=== PATIENT | female | born 1985 | race Asian ===

== ENCOUNTER 2023-07-12 11:30 | Outpatient (RCR) | payer BC, SELFPAY ==
--- NOTE | 2023-07-06 13:02 | ONC.NURNOTE ---
[employer] update per Radha; 07/06 9:30-11a Lavell Waggoner 07/10 - pending Wed 07/11 - Eileen Workman
--- NOTE | 2023-07-07 07:39 | URNOTE ---
Request received for authorization for Iron Sucrose (Venofer) ([id number]). Prior authorization is approved per [facility] Ref#[id number], date range: 07/05/2023 to 10/14/2023.
--- NOTE | 2023-07-07 07:45 | URNOTE ---
Request received for authorization for Iron Sucrose (Venofer) ([id number]). Prior authorization is not required per [facility] Ref#[id number], date range: 07/05/2023 to 10/14/2023.
--- NOTE | 2023-07-07 10:38 | ONC.NURNOTE ---
Addendum entered and electronically signed by Leyda Huynh, NADIA 07/07/23 15:05: Spoke with Veena RN Coordinator for [facility] at 3pm today to update regarding no-show this am. Veena shares with me that pt had conflicting appointment with her OB appointment today so missed her iron appointment. She will message pt regarding appointments for next week Monday and Monday, or to call can cancel appointments if she does not intend to receive IV iron. Original Note: No show for appointment today Ms. Unger was scheduled with legal billing coordinator for 1st of 3 IV venofer treatments for related iron deficiency anemia. Messages left with Ms. Unger and with her OB provider with request for update about next Monday and Monday appointments before her scheduled c section on 07/13/23.
--- NOTE | 2023-07-07 16:15 | ONC.NURNOTE ---
Porsha called from the clinic and said pt will be here 07/10 and 07/11 with an gluing machine offbearer for her iron infusion.
[2023-07-11 11:49] VITALS: BP 100/63; PULSE 82; RESP 18; TEMP 36.6; O2SAT 99
[2023-07-11] MEDS: IRON SUCROSE COMPLEX 200 MG in 0.9 % SODIUM CHLORIDE 100 ml 100 ML 220 MG IVPB (12:37)
[2023-07-11 13:11] VITALS: BP 95/60; PULSE 84; RESP 16; O2SAT 98
[2023-07-12 11:52] VITALS: BP 93/62; PULSE 93; RESP 16; TEMP 37.1; O2SAT 100
[2023-07-12] MEDS: IRON SUCROSE COMPLEX 200 MG in 0.9 % SODIUM CHLORIDE 100 ml 100 ML 220 MG IVPB (12:18)
[2023-07-12 13:03] VITALS: BP 91/56; PULSE 83; RESP 16; TEMP 36.8; O2SAT 99
== END 2024-01-07 23:59 | disposition home or self-care (01) ==
LOC: CCIC 11:30
PROVIDERS: Visit Provider Clinical Nurse Specialist
DX: O99.019 Anemia complicating pregnancy, unspecified trimester (principal); D50.9 Iron deficiency anemia, unspecified
CPT/HCPCS: 96365; 96374; J1756

== ENCOUNTER 2023-08-13 18:05 | Emergency (ER) | payer BC, SELFPAY ==
[2023-08-13 18:23] VITALS: BP 139/83; PULSE 59; RESP 18; TEMP 36.7; O2SAT 99
--- NOTE | 2023-08-13 18:32 | ED.GENADULT ---
HPI - General Adult General Time Seen by Provider: 18:32 Date Seen: 08/13/23 Chief complaint: Anxiety Stated complaint: anxiety Time Seen by Provider: 08/13/23 18:10 Source: patient, RN notes reviewed and old records reviewed Mode of arrival: ambulatory Limitations: no limitations History of Present Illness HPI narrative: 38-year-old female who is status post a little over a month ago who presents today with concerns of headache and high blood pressure. She says when she checks her blood pressure at home it is well over 185, she complains of a posterior headache as well. Recent dental work and says she is still having some pain in that site. By report she has been seen multiple times at outside emergency department for this concern, was prescribed medication for anxiety yesterday but has not started that. She does take propanolol and took that a couple hours prior to coming into the department. Denies lower extremity swelling, abdominal pain, nausea vomiting. Patient denies suicidal ideation. Online conference interpreter used Related Data Home Medications ?Medication ?Instructions ?Recorded ?Confirmed albuterol sulfate 90 mcg/actuation 2 puff inhalation Q4-6H PRN muscle 07/11/23 08/13/23 aerosol inhaler spasm ascorbic acid (vitamin C) 250 mg 250 mg PO Q1D 07/11/23 08/13/23 tablet famotidine 40 mg tablet 40 mg PO DAILY 07/11/23 08/13/23 cephalexin 500 mg capsule 500 mg PO 3XD 08/13/23 08/13/23 duloxetine 20 mg capsule,delayed 20 mg PO DAILY 08/13/23 08/13/23 release ferrous sulfate 325 mg (65 mg 325 mg PO DAILY 08/13/23 08/13/23 iron) tablet propranolol 10 mg tablet 10 mg PO DIRECTED 08/13/23 08/13/23 Allergies Allergy/AdvReac Type Severity Reaction Status Date / Time morphine AdvReac Mild Verified 08/13/23 18:56 peppermint AdvReac Mild Verified 08/13/23 18:56 aspirin AdvReac Verified 08/13/23 18:56 fluoxetine AdvReac Verified 08/13/23 18:56 ibuprofen AdvReac Verified 08/13/23 18:56 Exam Narrative: Exam Narrative: General: Well-developed and well-nourished, no acute distress Head: Atraumatic and normocephalic Eyes: Pupils are equal reactive, extraocular motions intact, conjunctiva clear ENT: External nose and ears are normal, posterior pharynx without erythema or exudate Neck: No midline cervical tenderness, full spontaneous range of motion the neck, trachea midline, no adenopathy Heart: Regular rate and rhythm no murmurs or thrills Lungs: Clear to auscultation bilaterally without wheezes or crackles Abdomen: Soft, nontender, nondistended with active bowel sounds Musculoskeletal: No tenderness, deformity, or edema Neurologic: Awake, alert, and oriented x3, no gross focal neurologic deficits, cranial nerves intact as tested Psych: Mood and affect are appropriate Skin: No rashes Const: Vital Signs, click to edit/add: Vital Signs - 24 hr 08/13/23 18:23 Temperature 98.0 F Pulse Rate [Left P ulse Oximeter] 59 L Respiratory Rate 18 Blood Pressure [Ri ght Upper Arm] 139/83 Pulse Oximetry 99 Oxygen Delivery Me thod Room Air Course Course ED Course: Patient seen and examined with conference interpreter. Complains of headache and is concerned about elevated blood pressure as well. She is a little about 4 weeks post . On exam here, well-appearing, no nuchal rigidity, no neurologic deficits. Given new onset headache with no prior history of this, CT scan of the head is ordered. Blood pressure is normal here, she reports it has been elevated at home, she did take propanolol just prior to coming in which may have lowered the blood pressure. Labs ordered to evaluate for preeclampsia although no other symptoms. Reevaluation(s) Time of Reevaluation #1: 18:47 Reevaluation #1: I reviewed patient's prior medical records, she was seen for this same problem last week in [place], also earlier today in [place] and left against medical advice. At that time labs were done which showed normal CBC with normal platelet count, normal hepatic panel, normal basic panel with no evidence for preeclampsia or HELLP syndrome. Review of prior records also shows patient has a history of anxiety which certainly is compounding symptoms today. Time of Reevaluation #2: 19:18 Reevaluation #2: CT scan of the head independently interpreted by me negative for acute findings, radiology interpretation agrees. Time of Reevaluation #3: 19:45 Reevaluation #3: Long discussion with patient's spouse regarding findings and plan today. She is still quite anxious, feels like there is something wrong in her head. We discussed that she has a normal neurologic exam, normal head CT. Consider outpatient MRI but no indication for emergent MRI at this time. Blood pressure remains slightly elevated but generally stable and would not start antihypertensives at this time with no evidence for preeclampsia or HELLP syndrome. Patient should follow-up with her primary care provider to discuss antihypertensive medications. Stable for discharge at this time Vital Signs Vital signs: Initial Vital Signs Temperature 98.0 F 08/13/23 18:23 Temperature Source Temporal Artery Scan 08/13/23 18:23 Pulse Rate 59 L 08/13/23 18:23 Pulse Rhythm Regular 08/13/23 18:23 Pulse Strength 3+ Normal 08/13/23 18:23 Respiratory Rate 18 08/13/23 18:23 Blood Pressure 139/83 08/13/23 18:23 Blood Pressure Mean 101 08/13/23 18:23 Blood Pressure Position Sitting 08/13/23 18:23 Pulse Oximetry 99 08/13/23 18:23 Oxygen Delivery Method Room Air 08/13/23 18:23 Vital Signs Temperature 98.0 F 08/13/23 18:23 Pulse Rate 59 L 08/13/23 18:23 Respiratory Rate 18 08/13/23 18:23 Blood Pressure 139/83 08/13/23 18:23 Pulse Oximetry 99 08/13/23 18:23 Oxygen Delivery Method Room Air 08/13/23 18:23 Temperature 98.0 F 08/13/23 18:23 Pulse Rate 59 L 08/13/23 18:23 Respiratory Rate 18 08/13/23 18:23 Blood Pressure 139/83 08/13/23 18:23 Pulse Oximetry 99 08/13/23 18:23 Oxygen Delivery Method Room Air 08/13/23 18:23 Medications Administered Medications: Discontinued Medications Generic Name Dose Route Start Last Admin Trade Name Freq PRN Reason Stop Dose Admin Acetaminophen 1,000 mg 08/13/23 18:35 08/13/23 18:48 Acetaminophen 500 Mg Tablet PO 08/13/23 18:36 500 mg ONCE ONE Administration Discharge Plan Discharge Clinical Impression: Anxiety, generalized, S/P section, Headache Patient Disposition: Home, Self-Care Condition: Stable Instructions: Generalized Anxiety Disorder (ED), Acute Headache (DC) Additional Instructions: Continue your medications as prescribed Follow-up with your primary care provider and OB Activity Level: No Restrictions Discharge Diet: Regular Prescriptions: No Action famotidine 40 mg tablet 40 mg PO DAILY ascorbic acid (vitamin C) 250 mg tablet 250 mg PO Q1D albuterol sulfate 90 mcg/actuation HFA aerosol inhaler 2 puff inhalation Q4-6H PRN (Reason: muscle spasm) cephalexin 500 mg capsule 500 mg PO 3XD duloxetine 20 mg capsule,delayed release(DR/EC) 20 mg PO DAILY propranolol 10 mg tablet 10 mg PO DIRECTED ferrous sulfate 325 mg (65 mg iron) tablet 325 mg PO DAILY Follow Up/Referrals: Provider,Not a Local [Primary Care Provider] - Stand Alone Forms: [employer] Info Instructions
--- NOTE | 2023-08-13 18:35 | CRLHL7_ITS ---
For Patients: As a result of the Century Cures Act, medical imaging exams and procedure reports are released immediately into your electronic medical record. You may view this report before your referring provider. If you have questions, please contact your health care provider. INDICATION: Headaches. TECHNIQUE: CT of the head without contrast. Coronal and sagittal reformats are included. COMPARISON: None. FINDINGS: No CT evidence of acute cortical infarct. No loss of murray white matter differentiation. No hyperdense vessels to suggest intracranial thrombus. No acute intracranial hemorrhage. No mass effect or midline shift. No hydrocephalus or extra-axial collections. White matter is within normal limits for age. No acute osseous abnormalities. Mastoid air cells and paranasal sinuses are clear. Normal soft tissues. IMPRESSION: IMPRESSION:1. No CT evidence of acute cortical infarct. No acute intracranial hemorrhage. No other acute intracranial findings. Please note that all CT scans at this facility use dose modulation, iterative reconstruction, and/or weight-based dosing when appropriate to reduce radiation dose to as low as reasonably achievable. Dictated by Alden Sloan MD @ 08/13/2023 7:14:47 PM (Electronically Signed)
[2023-08-13] MEDS: ACETAMINOPHEN 500 MG TABLET 1000 MG PO (18:48)
[2023-08-13 19:46] VITALS: BP 139/88
[2023-08-13 19:46] LABS: Total Protein Urine Random* 12 mg/dL
== END 2023-08-13 20:04 | disposition home or self-care (01) ==
PROVIDERS: Emergency Provider Family Medicine
DX: F41.1 Generalized anxiety disorder (principal); R51.9 Headache, unspecified
CPT/HCPCS: 70450; 80048; 80076; 83735; 84156; 84443; 85025; 99284; A9270

== ENCOUNTER 2023-08-18 00:19 | Emergency (ER) | payer BC, SELFPAY ==
[2023-08-18 00:20] VITALS: BP 150/85; PULSE 67; RESP 20; TEMP 36.8; O2SAT 99
--- NOTE | 2023-08-18 01:14 | ED.GENADULT ---
HPI - General Adult General Date Seen: 08/18/23 Chief complaint: Hypertension Stated complaint: High Blood Pressure Time Seen by Provider: 08/18/23 00:51 Source: patient and family Mode of arrival: ambulatory Limitations: language barrier History of Present Illness HPI narrative: Patient is a 38-year-old female who comes in during the night with her and sleeping child with concerns about her blood pressure. She is worried that her blood pressure is high in that she is going to have a stroke. She shows me pictures on her phone of thing she has come up with in a Google search of hypertension. She has numerous questions regarding foods. She tells me that if she eats any salt or eats a banana that her blood pressure is [place]. She has a family history of high blood pressure. She was just at her doctor a week ago and says the did not discuss her blood pressure. She has an anxiety disorder and has been to the ER on numerous occasions. She carries bottles of propranolol and lorazepam with her and is taking them regularly. She is not on a maintenance medication for anxiety. She is requesting a prescription for losartan because that is what her grandmother takes for hypertension. We had a long discussion regarding where her chronic health problems need to be managed and coming to the ER requesting management of her blood pressure or anxiety is not appropriate. She has no exertional chest pains or shortness of breath. Her blood pressure is mildly elevated today on the order of 150 systolic initially. Related Data Home Medications ?Medication ?Instructions ?Recorded ?Confirmed albuterol sulfate 90 mcg/actuation 2 puff inhalation Q4-6H PRN muscle 07/11/23 08/18/23 aerosol inhaler spasm ascorbic acid (vitamin C) 250 mg 250 mg PO Q1D 07/11/23 08/18/23 tablet famotidine 40 mg tablet 40 mg PO DAILY 07/11/23 08/18/23 duloxetine 20 mg capsule,delayed 20 mg PO DAILY 08/13/23 08/18/23 release ferrous sulfate 325 mg (65 mg 325 mg PO DAILY 08/13/23 08/18/23 iron) tablet propranolol 10 mg tablet 10 mg PO DIRECTED 08/13/23 08/18/23 Previous Rx's ?Medication ?Instructions ?Recorded propranolol 10 mg tablet 10 mg PO TID PRN panic attack(s) 08/18/23 #30 tabs Allergies Allergy/AdvReac Type Severity Reaction Status Date / Time morphine AdvReac Mild Verified 08/18/23 01:00 peppermint AdvReac Mild Verified 08/18/23 01:00 aspirin AdvReac Verified 08/18/23 01:00 fluoxetine AdvReac Verified 08/18/23 01:00 ibuprofen AdvReac Verified 08/18/23 01:00 Review of Systems Narrative: Review of systems is outlined above otherwise noted to be negative. [facility] Medical History (Updated 08/18/23 @ 01:16 by Solomon Parikh RN) Anxiety ?F41.9 - Anxiety disorder, unspecified (ICD-10) Social History Smoking Status: Never smoker Second hand tobacco smoke exposure: No How often do you have a drink containing alcohol: never AUDIT-C Alcohol total score: 0 Non-prescribed substance use: denies use Exam Narrative: Exam Narrative: Vitals noted. She is extremely anxious. educational interpreter is used. HEENT: Conjunctiva clear. Neck is supple without adenopathy, thyromegaly, carotid bruit. Lungs: Clear to auscultation in all bradley. No wheezes, rales, rhonchi. Heart: Regular rate and rhythm without murmur. Abdomen: Soft and nontender. No guarding, rigidity, rebound. Bowel sounds are normal. No palpable masses. Extremities: No cyanosis or edema. Good distal pulses. Skin: No abnormalities noted of the exposed skin. Neurologic: Awake, alert, fully oriented. Neurologic exam is nonfocal. Const: Vital Signs, click to edit/add: Vital Signs - 24 hr 08/18/23 00:20 08/18/23 01:17 08/18/23 01:22 Temperature 98.2 F 98.2 F 98.2 F Pulse Rate [Right Pulse Oximeter] 67 64 64 Respiratory Rate 20 20 20 Blood Pressure [Ri ght Upper Arm] 150/85 H 145/78 H 145/78 H Pulse Oximetry 99 99 Oxygen Delivery Me thod Room Air Room Air Course Course ED Course: Patient is seen and examined. Her she very clearly is mainly anxiety related. She has a family history of hypertension and may very well have some mild hypertension. I focused our discussion on switching care the primary physician through the clinic to answer her dietary questions, lipid questions, blood pressure questions and to initiate treatment if necessary. I have reassured her that her minimally elevated blood pressure does not warrant any emergency workup or treatment. Her anxiety is also poorly managed with propranolol and lorazepam when it should be managed with a daily medication such as an SSRI. Again this is not something that we should be treating through the emergency department. She seems satisfied with this plan. Vital Signs Vital signs: Initial Vital Signs Temperature 98.2 F 08/18/23 00:20 Temperature Source Temporal Artery Scan 08/18/23 00:20 Pulse Rate 67 08/18/23 00:20 Respiratory Rate 20 08/18/23 00:20 Blood Pressure 150/85 H 08/18/23 00:20 Blood Pressure Mean 106 H 08/18/23 00:20 Pulse Oximetry 99 08/18/23 00:20 Oxygen Delivery Method Room Air 08/18/23 00:20 Vital Signs Temperature 98.2 F 08/18/23 00:20 Pulse Rate 67 08/18/23 00:20 Respiratory Rate 20 08/18/23 00:20 Blood Pressure 150/85 H 08/18/23 00:20 Pulse Oximetry 99 08/18/23 00:20 Oxygen Delivery Method Room Air 08/18/23 00:20 Temperature 98.2 F 08/18/23 01:22 Pulse Rate 64 08/18/23 01:22 Respiratory Rate 20 08/18/23 01:22 Blood Pressure 145/78 H 08/18/23 01:22 Pulse Oximetry 99 08/18/23 01:17 Oxygen Delivery Method Room Air 08/18/23 01:17 Discharge Plan Discharge Clinical Impression: Generalized anxiety disorder, Elevated blood pressure reading Patient Disposition: Home w/ Parent or Adult Condition: Stable Additional Instructions: You have anxiety and mildly elevated blood pressure. Both of these conditions need to be managed by your clinic doctor not in the emergency department. I will provide a refill of your propranolol to get by until you see your clinic doctor. Further refills need to be managed by your Clinic doctor. You can discuss cholesterol and diet changes with her. You should avoid salt and stay hydrated. Your minimally elevated blood pressure does not impose an immediate risk. You should consider a daily anxiety medication such as Lexapro to better manage your anxiety. Lorazepam and propranolol are intended to be used as needed for panic attacks, not daily. Prescriptions: New propranolol 10 mg tablet 10 mg PO TID PRN (Reason: panic attack(s)) Qty: 30 0RF No Action famotidine 40 mg tablet 40 mg PO DAILY ascorbic acid (vitamin C) 250 mg tablet 250 mg PO Q1D albuterol sulfate 90 mcg/actuation HFA aerosol inhaler 2 puff inhalation Q4-6H PRN (Reason: muscle spasm) duloxetine 20 mg capsule,delayed release(DR/EC) 20 mg PO DAILY propranolol 10 mg tablet 10 mg PO DIRECTED ferrous sulfate 325 mg (65 mg iron) tablet 325 mg PO DAILY Follow Up/Referrals: Provider,Not a Local [Primary Care Provider] - Stand Alone Forms: [facility] Info Instructions
[2023-08-18 01:17] VITALS: BP 145/78; PULSE 64; RESP 20; TEMP 36.8; O2SAT 99
[2023-08-18 01:22] VITALS: BP 145/78; PULSE 64; RESP 20; TEMP 36.8
== END 2023-08-18 01:22 | disposition home or self-care (01) ==
PROVIDERS: Emergency Provider Family Medicine
DX: F41.9 Anxiety disorder, unspecified (principal); N39.0 Urinary tract infection, site not specified; I10 Essential (primary) hypertension
CPT/HCPCS: 99281; 99284

== ENCOUNTER 2023-08-21 | Emergency (ER) | payer BC, SELFPAY ==
[2023-08-21 00:09] VITALS: BP 147/89; PULSE 60; RESP 16; TEMP 36.6; O2SAT 100
[2023-08-21 00:17] LABS: Appearance Urine Clear (Clear); Bilirubin Urine Negative (Negative); Blood Urine Negative (Negative); Color Urine Yellow (Yellow); Glucose Urine Negative (Negative); Ketones Urine Negative (Negative); Leukocyte Esterase Urine 2+ (Negative); Nitrite Urine Positive (Negative); Protein Urine Negative (Negative); Urobilinogen Urine 0.2 (0.2-1.0); pH Urine 6.5 (5.0-8.5)
[2023-08-21 00:26] LABS: Amorphous Sediment Urine Few; Bacteria Urine Few; RBC Urine 0-2 (0-2); Squamous Epithelial Cell Urine Few (None-Few)
--- NOTE | 2023-08-21 00:42 | ED_ITS ---
HPI - General Adult General Date Seen: 08/21/23 Chief complaint: Hypertension Stated complaint: high blood pressure Time Seen by Provider: 08/21/23 00:21 Source: patient, family and vice president mission integration Mode of arrival: ambulatory Limitations: no limitations History of Present Illness HPI narrative: Jerica is a 38-year-old female with history of hearing impairment, elevated blood pressure, anxiety who comes to the emergency room for evaluation of multiple complaints. First, patient notes that she has anxiety and that she has been using Ativan. She states that she takes a tablet daily. She does not have any more Ativan. She notes that she did take a dose of propranolol 10 mg prior to coming into the emergency room approximately 1 hour ago. She states that she is also out of propranolol. This complaint is intertwined with issues regarding elevated blood pressure. She states that she has a family history of elevated blood pressure and that her grandmother used a medication called losartan. She is requesting that medication tonight. She notes that she cannot eat salty or sweet foods as this increases her blood pressure. She notes that prior to coming in her blood pressure was fluctuating above 150. Finally, as she notes that she also has some pain with urination starting 3 days ago. She describes urine smelling foul as well. She states that she took an amoxicillin tablet that she had left over from a previous visit approximately 1 hour ago. She states however the amoxicillin is making her feel sick. No fever or chills. She is not exhibiting any shortness of breath. She has no unusual edema. Her is here taking care of their . She has an older son elementary school age she was sleeping in a chair. She sees Dr. Hdez at the [facility]. We are assisted with the ssn/ssbn assistant navigator. It is somewhat challenging as Jerica also is writing down a lot of her history either on my paperwork or in her phone and sometimes does not look at the vice president mission integration after I have spoken. She has an appointment at the [facility] on MondayAugust 22. She is not nursing. Related Data Home Medications ?Medication ?Instructions ?Recorded ?Confirmed albuterol sulfate 90 mcg/actuation 2 puff inhalation Q4-6H PRN muscle 07/11/23 08/18/23 aerosol inhaler spasm ascorbic acid (vitamin C) 250 mg 250 mg PO Q1D 07/11/23 08/18/23 tablet famotidine 40 mg tablet 40 mg PO DAILY 07/11/23 08/18/23 duloxetine 20 mg capsule,delayed 20 mg PO DAILY 08/13/23 08/18/23 release ferrous sulfate 325 mg (65 mg 325 mg PO DAILY 08/13/23 08/18/23 iron) tablet propranolol 10 mg tablet 10 mg PO DIRECTED 08/13/23 08/18/23 Previous Rx's ?Medication ?Instructions ?Recorded propranolol 10 mg tablet 10 mg PO TID PRN panic attack(s) 08/18/23 #30 tabs Allergies Allergy/AdvReac Type Severity Reaction Status Date / Time morphine AdvReac Mild Verified 08/18/23 01:00 peppermint AdvReac Mild Verified 08/18/23 01:00 aspirin AdvReac Verified 08/18/23 01:00 fluoxetine AdvReac Verified 08/18/23 01:00 ibuprofen AdvReac Verified 08/18/23 01:00 Review of Systems Const: Denies: fever PFSH PFS Medical History Anxiety ?F41.9 - Anxiety disorder, unspecified (ICD-10) Social History Smoking Status: Never smoker Second hand tobacco smoke exposure: No How often do you have a drink containing alcohol: never AUDIT-C Alcohol total score: 0 Non-prescribed substance use: denies use Exam Narrative: Exam Narrative: Jerica is alert and oriented. EOM is full. Pupils are equal and reactive. Head is atraumatic. Moving neck without difficulty. No evidence of guarded movement. Face symmetrical. Heart with a bradycardic rate but normal rhythm. Lungs are clear bilaterally. Moving all extremities. No evidence of lower extremity edema. Const: Vital Signs, click to edit/add: Vital Signs - 24 hr 08/21/23 00:09 08/21/23 00:45 08/21/23 01:42 Temperature 97.9 F Pulse Rate [Left P ulse Oximeter] 60 Respiratory Rate 16 Blood Pressure [Ri ght Upper Arm] 147/89 H 167/89 H 148/78 H Pulse Oximetry 100 Oxygen Delivery Me thod Room Air Documenting provider has reviewed patient's vital signs: yes Course Course ED Course: At this time Jerica appears to have had 3 visit visits for similar complaints at the [facility] in the last 8 days. There also appears to be visits to the hospital and clinic in [place].. We are able to access [facility] chart and she has requested Ativan and propranolol as refills.. She initial received 10 tablets of Ativan from our hospital on 08/12 and therefore still should have some tablets left over if she is only taking 1 a day as she told me. I think she would benefit much more from a long-acting antidepressant. She had previously been told that we will no longer refill her medicines and I will not be doing that tonight. She appears somewhat frustrated with that. We jumps from topic to topic and therefore it is very challenging to address anyone complaint at 1 time. I do request subsequent blood pressures and a manual is 148/78. Patient does not know her dose of propranolol. I will check urinalysis as well as dosing of propranolol. Patient asked that I is make her an appointment tomorrow morning at the [facility]. I did state that I could not do that as we are not [facility] system but that I would contact her clinic in the morning and speak to someone to have them reach out to her. Reevaluation(s) Reevaluation #1: I do discuss with patient that she has a mild UTI. There is no evidence of fever. I do recommend treatment with antibiotics and suggest Macrobid but she states that she cannot take that. It is not listed on her allergies but it appears she would rather take 1 of the antibiotics she has with her from previous needs. She does consult with her . She shows me that she has both amoxicillin and cephalexin left over from previous medical encounters. She does not want to take amoxicillin but she does have 16 tablets of cephalexin left over. She is able to take this. Therefore I do suggest 1 tablet 3 times a day for 5 days. She asks that I write this in her discharge instructions. Reevaluation #2: Patient currently taking 10 mg of propranolol. She states that this was her last dose that she took tonight. Heart rate is 51 on an EKG that is otherwise reassuring. I cannot give her a 2nd dose of propranolol at this time. Vital Signs Vital signs: Initial Vital Signs Temperature 97.9 F 08/21/23 00:09 Temperature Source Temporal Artery Scan 08/21/23 00:09 Pulse Rate 60 08/21/23 00:09 Pulse Rhythm Regular 08/21/23 00:09 Respiratory Rate 16 08/21/23 00:09 Blood Pressure 147/89 H 08/21/23 00:09 Blood Pressure Mean 108 H 08/21/23 00:09 Blood Pressure Position Sitting 08/21/23 00:09 Pulse Oximetry 100 08/21/23 00:09 Oxygen Delivery Method Room Air 08/21/23 00:09 Vital Signs Temperature 97.9 F 08/21/23 00:09 Pulse Rate 60 08/21/23 00:09 Respiratory Rate 16 08/21/23 00:09 Blood Pressure 147/89 H 08/21/23 00:09 Pulse Oximetry 100 08/21/23 00:09 Oxygen Delivery Method Room Air 08/21/23 00:09 Temperature 97.9 F 08/21/23 00:09 Pulse Rate 60 08/21/23 00:09 Respiratory Rate 16 08/21/23 00:09 Blood Pressure 148/78 H 08/21/23 01:42 Pulse Oximetry 100 08/21/23 00:09 Oxygen Delivery Method Room Air 08/21/23 00:09 Medications Administered Medications: Discontinued Medications Generic Name Dose Route Start Last Admin Trade Name Freq PRN Reason Stop Dose Admin Lorazepam 0.5 mg 08/21/23 01:30 08/21/23 01:41 Lorazepam 0.5 Mg Tablet PO 08/21/23 01:31 0.5 mg ONCE ONE Administration Medical Decision Making MDM Narrative Medical decision making narrative: 1. UTI-at this time we have had multiple episodes of discussion regarding the use of cephalexin as her antibiotic to treat the UTI. Would recommend 1 tablet 3 times daily for 5 days. We will await the urine culture and contact her for change of medication in the event that she has a resistant organism. Updated: I have spoken with [facility] and have requested that they check the urine culture from mid July. We do have a culture pending from last night's urine as well. 2. Anxiety-I am greatly concerned regarding Jerica's use of Ativan. This is supposed to be used as a rescue medication but she is using this on a greater than daily basis.. Unfortunately I could not give her additional dose of propranolol tonight and therefore have sent her home with 1 tablet of 0.5 mg Ativan for tonight. However, I have made it clear that we will no longer give her Ativan out of the emergency room for this particular issue. I will speak to her physician tomorrow regarding my concerns. Update: Have addressed this with Cyndee, the nurse with Dr. Hdez's care team in [place]. She may need more support with a . 3. Hypertension-likely secondary to 2. But patient does have family history of elevated blood pressure. Patient had taken propranolol prior to arrival and blood pressure after she has been sitting here for while is 148/78. She had requested losartan but I do not feel that that is an appropriate medication to be started in the emergency room. On 08/12 she was evaluated with head CT here in the [facility] which was reassuring. Blood work had been done earlier that day at the [facility] and she had also been seen at a different location in which she left [place]. I did do an EKG tonight which is reassuring with sinus bradycardia and no acute ST or T-wave changes. Given the fact that she is well-appearing with full range of motion of her neck and no cognitive impairment I do not feel the need to repeat CT or to repeat blood work. However, I would like patient to be considered for long-acting antihypertensive. She states that she has also used her last propranolol tonight and I do suggest all refills with her primary MD. 4. Disposition-home at this time. Return to the emergency room for fever, chills, worsening symptoms and as needed. Patient is very challenging in both history taking and communication. Barriers include need for ssn/ssbn assistant navigator, patient's tendency to use texting and writing her concerns down as well as sometimes not looking at the vice president mission integration. Patient jumped from subject to subject, especially when I declined the use of lorazepam in this particular instance. When I was firm with declining the use of lorazepam she then stated that her neck hurt although she is showing me that she is moving her neck without any difficulty. She then stated that she was very anxious. I have also great concerns regarding the fact that she has leftover antibiotics. Clearly there is some tendency to not follow medical advice. Therefore, I feel strongly that Jerica needs to be followed by her primary MD in the matters of anxiety, hypertension and chronic medical problems. I feel that too many physicians or opinions with various medications would not be to Jerica's benefit. Update: I had the pleasure of speaking to Cyndee, nurse member of primary physicians care team at the [facility] in [place]. Expressed concerns regarding use of Ativan, high blood pressure and UTI. Plan is to have them reach out to Jerica today. Medical Records Medical records reviewed: Yes I reviewed the patient's medical records Lab Data Lab results reviewed: Yes I reviewed the patient's lab results Labs: Lab Results 08/21/23 Range/Units 00:05 Urine Color Yellow (Yellow) Urine Appearance Clear (Clear) Urine pH 6.5 (5.0-8.5) Ur Specific Snyder 1.010 (1.000-1.030) Urine Protein Negative (Negative) Urine Glucose (UA) Negative (Negative) Urine Ketones Negative (Negative) Urine Blood Negative (Negative) Urine Nitrite Positive A (Negative) Urine Bilirubin Negative (Negative) Urine Urobilinogen 0.2 (0.2-1.0) Ur Leukocyte Esterase 2+ A (Negative) Urine RBC 0-2 (0-2) Urine WBC 5-10 A (0-5) Ur Squamous Epith Cells Few (None-Few) Amorphous Sediment Few A (None) Urine Bacteria Few A (None) ECG Data Attestation: I personally reviewed and interpreted this ECG as follows: Interpretation: EKG by my read shows sinus bradycardia at a rate of 51. No acute ST or T-wave changes. DC and QT intervals within normal limits. Discharge Plan Discharge Clinical Impression: Anxiety, generalized, Elevated blood pressure reading UTI (urinary tract infection) Qualifiers: Urinary tract infection type: site unspecified Hematuria presence: without hematuria Qualified Code(s): N39.0 - Urinary tract infection, site not specified Patient Disposition: Home, Self-Care Condition: Unchanged Additional Instructions: 1. It looks like you may have a mild UTI. You may use cephalexin that you have already in the bottle. You should take 1 tablet 3 times a day for 5 days. Do not take the amoxicillin. We will await the urine culture and should you need a different antibiotic we will call you. 2. Anxiety-you are trying to manage your anxiety with Ativan. You will receive 1 tablet of Ativan that you may take when you go home. We will no longer give you Ativan in the emergency room as a refill. You must go through your regular doctor for management of your anxiety. I do not think that your anxiety is being managed well with Ativan. I will speak to your doctor or doctor's nurse in the morning with my concerns. 3. Hypertension-you expressed concern regarding family history of hypertension. Your blood pressure tonight is not dangerous but over a period of time can cause medical problems. Therefore, I urge you to talk to your doctor about getting started on a long-term medication for blood pressure management. You can also have your doctor refill your propanolol tomorrow. 4. Follow-up-I will attempt to contact the [facility] and have them call you for an earlier appointment than Monday or at the very least have them discuss with you management of your problems. Return to the emergency room for fever, vomiting, worsening symptoms. Prescriptions: No Action famotidine 40 mg tablet 40 mg PO DAILY ascorbic acid (vitamin C) 250 mg tablet 250 mg PO Q1D albuterol sulfate 90 mcg/actuation HFA aerosol inhaler 2 puff inhalation Q4-6H PRN (Reason: muscle spasm) duloxetine 20 mg capsule,delayed release(DR/EC) 20 mg PO DAILY propranolol 10 mg tablet 10 mg PO DIRECTED ferrous sulfate 325 mg (65 mg iron) tablet 325 mg PO DAILY propranolol 10 mg tablet 10 mg PO TID PRN (Reason: panic attack(s)) Qty: 30 0RF Follow Up/Referrals: Provider,Not a Local [Primary Care Provider] - Stand Alone Forms: [employer] Info Instructions
[2023-08-21 00:45] VITALS: BP 167/89
[2023-08-21] MEDS: LORazepam 0.5 MG TABLET PO (01:41)
[2023-08-21 01:42] VITALS: BP 148/78
--- NOTE | 2023-08-21 02:12 | ED.NURSE ---
PT DC with understanding of medication and dosage. No other questions upon discharge.
== END 2023-08-21 02:15 | disposition home or self-care (01) ==
LOC: ED 02:02
PROVIDERS: Emergency Provider Family Medicine
DX: F41.9 Anxiety disorder, unspecified (principal); I10 Essential (primary) hypertension; N39.0 Urinary tract infection, site not specified
CPT/HCPCS: 81001; 87086; 99284; A9270

== ENCOUNTER 2023-08-31 00:42 | Emergency (ER) | payer BC, SELFPAY ==
--- NOTE | 2023-08-31 00:44 | ED_ITS ---
HPI - General Adult General Time Seen by Provider: 00:44 Date Seen: 08/31/23 Chief complaint: Anxiety Stated complaint: acid reflux, anxiety Time Seen by Provider: 08/31/23 00:44 Source: patient, RN notes reviewed and old records reviewed Mode of arrival: EMS Limitations: no limitations History of Present Illness HPI narrative: 38-year-old female who comes in today with concern for hypertension, anxiety and heartburn symptoms. Patient is concerned sore blood pressure is been going up and down, this makes her anxious. She also notes increased heartburn symptoms and belching depressed well as left upper quadrant pain. Patient has had recent evaluation for this including CT scan on labs. She reports she was started on omeprazole for for this, she has taken one dose and ?it is not working. ? Says Tums and Gas-X 10 help. She says that her body is ?very sensitive medications? and also due to salt, she started a low-salt diet and is worried that she is ge tting more salt than she should. She notes that her food done tolerance as and hypertension as well as increased anxiety seem to have started after she delivered her most recent child. She says she is not resting well, denies suicide or homicidal ideation. She does not feel that she is in danger of hurting her baby. Related Data Home Medications ?Medication ?Instructions ?Recorded ?Confirmed albuterol sulfate 90 mcg/actuation 2 puff inhalation Q4-6H PRN muscle 07/11/23 08/18/23 aerosol inhaler spasm ascorbic acid (vitamin C) 250 mg 250 mg PO Q1D 07/11/23 08/18/23 tablet famotidine 40 mg tablet 40 mg PO DAILY 07/11/23 08/18/23 ferrous sulfate 325 mg (65 mg 325 mg PO DAILY 08/13/23 08/18/23 iron) tablet propranolol 10 mg tablet 10 mg PO DIRECTED 08/13/23 08/18/23 Previous Rx's ?Medication ?Instructions ?Recorded propranolol 10 mg tablet 10 mg PO TID PRN panic attack(s) 08/18/23 #30 tabs sucralfate 1 gram tablet (Carafate) 1 g PO QID #28 tabs 08/31/23 Allergies Allergy/AdvReac Type Severity Reaction Status Date / Time morphine AdvReac Mild Verified 08/18/23 01:00 peppermint AdvReac Mild Verified 08/18/23 01:00 aspirin AdvReac Verified 08/18/23 01:00 fluoxetine AdvReac Verified 08/18/23 01:00 ibuprofen AdvReac Verified 08/18/23 01:00 [facility] Medical History Anxiety ?F41.9 - Anxiety disorder, unspecified (ICD-10) Social History Smoking Status: Never smoker Second hand tobacco smoke exposure: No How often do you have a drink containing alcohol: never AUDIT-C Alcohol total score: 0 Non-prescribed substance use: denies use Exam Narrative: Exam Narrative: General: Well-developed and well-nourished, no acute distress Head: Atraumatic and normocephalic Eyes: Pupils are equal reactive, extraocular motions intact, conjunctiva clear ENT: External nose and ears are normal, posterior pharynx without erythema or exudate Neck: No midline cervical tenderness, full spontaneous range of motion the neck, trachea midline, no adenopathy Heart: Regular rate and rhythm no murmurs or thrills Lungs: Clear to auscultation bilaterally without wheezes or crackles Abdomen: Soft, nontender, nondistended with active bowel sounds Musculoskeletal: No tenderness, deformity, or edema Neurologic: Awake, alert, and oriented x3, no gross focal neurologic deficits, cranial nerves intact as tested Psych: Mood and affect are appropriate Skin: No rashes Const: Vital Signs, click to edit/add: Vital Signs - 24 hr 08/31/23 00:56 Temperature 97.5 F L Pulse Rate [Pulse Oximeter] 58 L Respiratory Rate 16 Blood Pressure [Le ft Upper Arm] 127/72 Pulse Oximetry 97 Oxygen Delivery Me thod Room Air Course Course ED Course: Patient seen and examined, reviewed multiple recent emergency department visits, today is her 4th visit to this emergency depart in 3 weeks with various somatic complaints with no underlying pathology found. Review of outside records shows she has also had visits to the emergency department in [place] as well as [place]. She most recent was in [place] on August 24 with left upper quadrant abdominal pain and had a CT scan done that was negative. Additionally she had a upper abdominal ultrasound yesterday which was negative. She was started on omeprazole by her primary care doctor and also has an appointment to follow-up with psychiatry. On exam, blood pressure is reassuring, minimal left upper quadrant tenderness. We discussed that her blood pressure will go up and down related to her anxiety and pain levels. I encouraged her not to check her blood pressure at home has this tends to make her anxiety worse. Her abdominal pain bloating are likely secondary to dyspepsia and could be related to her anxiety as well. Acute coronary syndrome unlikely, given recent was full evaluation for this pain within the last 7 days with no acute abnormalities found, as well as minimal tenderness on exam and rigidity or severe tenderness to suggest perforated ulcer or other emergent life-threatening abdominal condition, will treat symptomatically with GI cocktail, Pepcid, Gas-X. Patient's symptoms are most likely related to exacerbation of underlying anxiety disorder in the state, no evidence for psychosis, patient is not suicidal homicidal. She has a follow-up appointment with Psychiatry later today. Sym ptomatic treatment, will be started on Carafate as well. We did discuss that the omeprazole can take a week to start having significant effects and she can continue Gas-X in the meantime Reevaluation(s) Time of Reevaluation #1: 01:57 Reevaluation #1: Patient declined Gas-X and Maalox although she has been taking Gas-X at home. Time of Reevaluation #2: 02:06 Reevaluation #2: Patient declines further medications, spouse and patient are requesting discharge. Patient is medically stable for discharge, should follow-up with psychiatry as scheduled today. Vital Signs Vital signs: Initial Vital Signs Temperature 97.5 F L 08/31/23 00:56 Temperature Source Temporal Artery Scan 08/31/23 00:56 Pulse Rate 58 L 08/31/23 00:56 Respiratory Rate 16 08/31/23 00:56 Blood Pressure 127/72 08/31/23 00:56 Blood Pressure Mean 90 08/31/23 00:56 Blood Pressure Position Sitting 08/31/23 00:56 Pulse Oximetry 97 08/31/23 00:56 Oxygen Delivery Method Room Air 08/31/23 00:56 Vital Signs Temperature 97.5 F L 08/31/23 00:56 Pulse Rate 58 L 08/31/23 00:56 Respiratory Rate 16 08/31/23 00:56 Blood Pressure 127/72 07/18/24 00:56 Pulse Oximetry 97 08/31/23 00:56 Oxygen Delivery Method Room Air 08/31/23 00:56 Temperature 97.5 F L 08/31/23 00:56 Pulse Rate 58 L 08/31/23 00:56 Respiratory Rate 16 08/31/23 00:56 Blood Pressure 127/72 08/31/23 00:56 Pulse Oximetry 97 08/31/23 00:56 Oxygen Delivery Method Room Air 08/31/23 00:56 Medications Administered Medications: Generic Name Dose Route Start Last Admin Trade Name Freq PRN Reason Stop Dose Admin Famotidine 20 mg 08/31/23 01:08 08/31/23 01:43 Famotidine 20 Mg Tablet PO 08/31/23 01:09 20 mg ONCE ONE Administration Lidocaine/Aluminum/Magnesium/Simeth 30 ml 08/31/23 01:08 08/31/23 01:58 Gi Cocktail (Visc Lido/Antacid) 30 Ml PO 08/31/23 01:09 Not Given ONCE ONE Simethicone 160 mg 08/31/23 01:10 08/31/23 01:58 Simethicone 80 Mg Tab.Chew PO 08/31/23 01:11 Not Given ONCE ONE Discharge Plan Discharge Clinical Impression: Generalized anxiety disorder, Dyspepsia Patient Disposition: Home, Self-Care Condition: Stable Instructions: GERD (Gastroesophageal Reflux Disease) (ED), Anxiety (ED) Additional Instructions: Continue omeprazole as prescribed Start Carafate Follow-up with primary care and psychiatry as scheduled Activity Level: Activity as Tolerated Discharge Diet: Regular Prescriptions: New sucralfate [Carafate] 1 gram tablet 1 g PO QID Qty: 28 0RF Discontinued duloxetine 20 mg capsule,delayed release(DR/EC) 20 mg PO DAILY No Action famotidine 40 mg tablet 40 mg PO DAILY ascorbic acid (vitamin C) 250 mg tablet 250 mg PO Q1D albuterol sulfate 90 mcg/actuation HFA aerosol inhaler 2 puff inhalation Q4-6H PRN (Reason: muscle spasm) propranolol 10 mg tablet 10 mg PO DIRECTED ferrous sulfate 325 mg (65 mg iron) tablet 325 mg PO DAILY propranolol 10 mg tablet 10 mg PO TID PRN (Reason: panic attack(s)) Qty: 30 0RF Follow Up/Referrals: Provider,Not a Local [Staff Physician] - Stand Alone Forms: MyHealth Info Instructions
[2023-08-31 00:56] VITALS: BP 127/72; PULSE 58; RESP 16; TEMP 36.4; O2SAT 97
[2023-08-31] MEDS: FAMOTIDINE 20 MG TABLET PO (01:43)
== END 2023-08-31 02:22 | disposition home or self-care (01) ==
PROVIDERS: Emergency Provider Family Medicine; PCP Family Medicine
DX: F41.1 Generalized anxiety disorder (principal); R10.13 Epigastric pain
CPT/HCPCS: 99283; 99284; A9270

== ENCOUNTER 2024-04-01 23:08 | Emergency (ER) | payer BC, SELFPAY ==
--- OUTSIDE RECORDS SUMMARY | 2024-04-01 23:12 | XMS_ITS | Continuity of Care Document ---
Author Organization [facility] Address [address] [place] [address] Phone Care Team Providers Care Senior Web Architect Name Role Phone Obdulio Quick PA-C Unavailable Unavailable Allergies, Adverse Reactions, Alerts Substance Reaction Status Criticality Sulfa (Sulfonamide Antibiotics) RashRash Active No Information ibuprofen ItchingItching Active No Informatio n aspirin ItchingItching Active No Informatio n Medications Medication Instructions Dosage Effective Dates (start - stop) Status Comments omeprazole 20 mg capsule,delayed release take 1 capsule by oral route every day 30 minutes to 1 hour before BREAKFAST - Active folic acid 1 mg tablet take 1 tablet by oral route every day 1 MG - Active Diclegis 10 mg-10 mg tablet,delayed release take 2 tablet by oral route every day at bedtime, if needed add 1 tablet by oral rout in the morning and 1 tablet in the mid-afternoon - Active Colace 100 mg capsule take 2 capsule by oral route every day at bedtime for soft stool - Active albuterol sulfate HFA 90 mcg/actuation aerosol inhaler inhale 2 puff by inhalation route every 4 - 6 hours as needed for Broncospasm - Active Temp fill, equivalent generic substitution is OK. clonazepam 0.5 mg tablet take 1 tablet by oral route every day 0.5 MG - Active Preparation H Hydrocortisone 1 % topical cream apply by topical route 2 times every day a thin layer to the affected area(s) 0.00 - Active or 1 tube equivalent Tums Ultra 400 mg calcium (1,000 mg) chewable tablet prn GERD - No Longer Active pantoprazole 40 mg tablet,delayed release TAKE 1 TABLET BY MOUTH EVERY DAY - No Longer Active Gas-X Extra Strength 125 mg capsule Take 1 to 2 tablets as needed after meals - No Longer Active or 2 boxes Lexapro 5 mg tablet take 1 tablet by oral route every day 5 MG - No Longer Active propranolol 10 mg tablet take 1 tablet by oral route 3 times every day 10 MG - No Longer Active polyethylene glycol 3350 17 gram/dose oral powder DISSOLVE 17 GRAMS IN 8 OZ OF FLUID LIQUID DRINK DAILY DIRECTED - No Longer Active ferrous sulfate 325 mg (65 mg iron) tablet take 1 tablet by oral route every day 325 MG - No Longer Active Colace 100 mg capsule take 1 capsule by oral route every day at bedtime as needed 100 MG - No Longer Active Procedures Procedure Date BODY MASS INDEX DOCD MED LIST DOCD IN RCRD SUBSEQUENT CARE HG A1C LEVEL LT 7.0% Initial PN Exam New Pt(Under 16wks) SYST BP LT 130 MM HG DIAST BP < 80 MM HG CARE VISIT CLIENT ORIENTATION (15 MIN>) NEG SCRN DEP SYMP BY DEPTOOL SCREEN DEPRESSION PERFORMED HG A1C LEVEL LT 7.0% OFFICE/OUTPATIENT VISIT, EST URINE TEST OFFICE/OUTPATIENT VISIT, EST CHYLMD TRACH, DNA, AMP PROBE N.GONORRHOEAE, DNA, AMP PROB OFFICE/OUTPATIENT VISIT, EST SCREEN DEPRESSION PERFORMED PSYTX, OFF, 45-50 MIN OFFICE/OUTPATIENT VISIT, EST OFFICE/OUTPATIENT VISIT, EST OFFICE/OUTPATIENT VISIT, EST SYST BP LT 130 MM HG DIAST BP < 80 MM HG Targeted case management OFFICE/OUTPATIENT VISIT, EST SYST BP GE 130 - 139MM HG DIAST BP 80-89 MM HG URINALYSIS NONAUTO W/O SCOPE OFFICE/OUTPATIENT VISIT, EST SYST BP GE 130 - 139MM HG DIAST BP < 80 MM HG Clin depression screen doc PSYTX, OFF, 45-50 MIN OFFICE/OUTPATIENT VISIT, EST SYST BP LT 130 MM HG DIAST BP < 80 MM HG PREV VISIT, EST, AGE 18-39YRS OLD SYST BP GE 130 - 139MM HG DIAST BP 80-89 MM HG Clin depression screen doc OFFICE/OUTPATIENT VISIT, EST SYST BP GE 130 - 139MM HG DIAST BP 80-89 MM HG BODY MASS INDEX DOCD OFFICE/OUTPATIENT VISIT, EST SYST BP LT 130 MM HG DIAST BP < 80 MM HG ADVNC CARE PLAN TLK DOCD ACP DISCUSS-NO DSCNMKR DOC'D ACP DISCUSS/DSCN MKR DOC'D FXNL STATUS ASSESSED AMNT PAIN NOTED; NONE PRSNT URINALYSIS NONAUTO W/O SCOPE OFFICE/OUTPATIENT VISIT, EST SYST BP LT 130 MM HG DIAST BP < 80 MM HG MED LIST DOCD IN [facility] AMNT PAIN NOTED; NONE PRSNT MED LIST DOCD IN [facility] OFFICE/OUTPATIENT VISIT, EST SYST BP LT 130 MM HG DIAST BP < 80 MM HG MED LIST DOCD IN [facility] OFFICE/OUTPATIENT VISIT, EST Targeted case management AMNT PAIN NOTED; NONE PRSNT OFFICE/OUTPATIENT VISIT, EST SYST BP LT 130 MM HG DIAST BP < 80 MM HG Clin depression screen doc AMNT PAIN NOTED; NONE PRSNT MED LIST DOCD IN [facility] URINALYSIS NONAUTO W/O SCOPE Office Visit SUBSEQUENT CARE SUBSEQUENT CARE SUBSEQUENT CARE ACP DISCUSS-NO DSCNMKR DOC'D URINALYSIS NONAUTO W/O SCOPE SUBSEQUENT CARE MED LIST DOCD IN [facility] FLOW SHEET Antepartum Visit SYST BP LT 130 MM HG DIAST BP < 80 MM HG Scrning perf and negative NO SIG DEP SYMP BY DEP TOOL ACP DISCUSS-NO DSCNMKR DOC'D MED LIST DOCD IN [facility] AMNT PAIN NOTED; NONE PRSNT FLOW SHEET OFFICE/OUTPATIENT VISIT, EST Antepartum Visit SYST BP LT 130 MM HG DIAST BP < 80 MM HG ACP DISCUSS-NO DSCNMKR DOC'D SUBSEQUENT CARE ACP DISCUSS-NO DSCNMKR DOC'D SUBSEQUENT CARE URINALYSIS NONAUTO W/O SCOPE MED LIST DOCD IN [facility] Initial PN Exam New Pt(Under 16wks) SYST BP LT 130 MM HG DIAST BP < 80 MM HG ACP DISCUSS-NO DSCNMKR DOC'D CARE VISIT URINE TEST OFFICE/OUTPATIENT VISIT, EST CHYLMD TRACH, DNA, AMP PROBE N.GONORRHOEAE, DNA, AMP PROB AMNT PAIN NOTED; NONE PRSNT FXNL STATUS ASSESSED OFFICE/OUTPATIENT VISIT, EST SYST BP LT 130 MM HG DIAST BP < 80 MM HG OFFICE/OUTPATIENT VISIT, EST SYST BP LT 130 MM HG DIAST BP < 80 MM HG Radiologic Examination Chest 2 Views Mar AMNT PAIN NOTED; NONE PRSNT ACP DISCUSS-NO DSCNMKR DOC'D MED LIST DOCD IN [facility] OFFICE/OUTPATIENT VISIT, EST SYST BP LT 130 MM HG DIAST BP < 80 MM HG AMNT PAIN NOTED; NONE PRSNT FXNL STATUS ASSESSED MED LIST DOCD IN RD OFFICE/OUTPATIENT VISIT, EST SYST BP LT 130 MM HG DIAST BP < 80 MM HG MED LIST DOCD IN [facility] HEMOGLOBIN OFFICE/OUTPATIENT VISIT, EST SYST BP LT 130 MM HG DIAST BP < 80 MM HG AMNT PAIN NOTED; NONE PRSNT FXNL STATUS ASSESSED MED LIST DOCD IN RD OFFICE/OUTPATIENT VISIT, EST SYST BP LT 130 MM HG DIAST BP < 80 MM HG OFFICE/OUTPATIENT VISIT, EST OFFICE/OUTPATIENT VISIT, EST SYST BP LT 130 MM HG DIAST BP < 80 MM HG AMNT PAIN NOTED; NONE PRSNT FXNL STATUS ASSESSED OFFICE/OUTPATIENT VISIT, EST SYST BP LT 130 MM HG DIAST BP < 80 MM HG AMNT PAIN NOTED; NONE PRSNT FXNL STATUS ASSESSED PREV VISIT, EST, AGE 18-39YRS OLD SYST BP LT 130 MM HG DIAST BP < 80 MM HG MED LIST DOCD IN RD OFFICE/OUTPATIENT VISIT, EST OFFICE/OUTPATIENT VISIT, EST OFFICE/OUTPATIENT VISIT, EST SYST BP LT 130 MM HG DIAST BP < 80 MM HG Clin depression screen doc Pt inelig for depression scr OFFICE/OUTPATIENT VISIT, EST OFFICE/OUTPATIENT VISIT, EST OFFICE/OUTPATIENT VISIT, EST OFFICE/OUTPATIENT VISIT, EST OFFICE/OUTPATIENT VISIT, EST PHONE E/M BY PHYS 11-20 MIN OFFICE/OUTPATIENT VISIT, EST OFFICE/OUTPATIENT VISIT, EST PHONE E/M BY PHYS 11-20 MIN OFFICE/OUTPATIENT VISIT, EST Obtaining screen pap smear PREV VISIT, EST, AGE 18-39YRS OLD HEMOGLOBIN OFFICE/OUTPATIENT VISIT, EST PHONE E/M BY PHYS 11-20 MIN OFFICE/OUTPATIENT VISIT, EST OFFICE/OUTPATIENT VISIT, EST OFFICE/OUTPATIENT VISIT, EST OFFICE/OUTPATIENT VISIT, EST OFFICE/OUTPATIENT VISIT, EST Pt inelig for depression scr OFFICE/OUTPATIENT VISIT, EST Results Test Name Date and Time Measure Units Reference Range Abnormal Flag Status Comments Panel Description: OBSTETRIC PANEL Final WHITE BLOOD CELL COUNT 09:55: 00 6.0 [place]/uL 3.8-10.8 N Final RED BLOOD CELL COUNT 09:55: 00 5.24 Mill[place] n/uL 3.80-5.10 H Final HEMOGLOBIN 09:55: 00 13.0 g/dL 11.7-15.5 N Final HEMATOCRIT 09:55: 00 39.6 % 35.0-45.0 N Final MCV 09:55: 00 75.6 fL 80.0-100.0 L Final MCH 09:55: 00 24.8 pg 27.0-33.0 L Final MCHC 09:55: 00 32.8 g/dL 32.0-36.0 N Final RDW 09:55: 00 17.8 % 11.0-15.0 H Final PLATELET COUNT 09:55: 00 [address] [place] [address]/uL 140-400 N Final MPV 09:55: 00 9.9 fL 7.5-12.5 N Final ABSOLUTE NEUTROPHILS 09:55: 00 4308 cells/ uL 0734-4816 N Final ABSOLUTE BAND NEUTROPHILS 09:55: 00 DNR cells/ uL 0-750 N Final ABSOLUTE METAMYELOCYTES 09:55: 00 DNR cells/ uL 0 N Final ABSOLUTE MYELOCYTES 09:55: 00 DNR cells/ uL 0 N Final ABSOLUTE PROMYELOCYTES 09:55: 00 DNR cells/ uL 0 N Final ABSOLUTE LYMPHOCYTES 09:55: 00 1050 cells/ uL 850-3900 N Final ABSOLUTE MONOCYTES 09:55: 00 552 cells/ uL 200-950 N Final ABSOLUTE EOSINOPHILS 09:55: 00 42 cells/ uL 15-500 N Final ABSOLUTE BASOPHILS 09:55: 00 48 cells/ uL 0-200 N Final ABSOLUTE BLASTS 09:55: 00 DNR cells/ uL 0 N Final ABSOLUTE NUCLEATED RBC 09:55: 00 DNR cells/ uL 0 N Final NEUTROPHILS 09:55: 00 71.8 % N Final BAND NEUTROPHILS 09:55: 00 DNR % N Final METAMYELOCYTES 09:55: 00 DNR % N Final MYELOCYTES 09:55: 00 DNR % N Final PROMYELOCYTES 09:55: 00 DNR % N Final LYMPHOCYTES 09:55: 00 17.5 % N Final REACTIVE LYMPHOCYTES 09:55: 00 DNR % 0-10 N Final MONOCYTES 09:55: 00 9.2 % N Final EOSINOPHILS 09:55: 00 0.7 % N Final BASOPHILS 09:55: 00 0.8 % N Final BLASTS 09:55: 00 DNR % N Final NUCLEATED RBC 09:55: 00 DNR /100 WBC 0 N Final COMMENT(S) 09:55: 00 DNR N Final Panel Description: CYSTIC FIBROSIS SCREEN Final ETHNICITY: 09:55: 00 H Final CF RESULT 09:55: 00 NEGATIVE NEGATIVE Final NEGATIVE; NONE OF THE MUTATIONS LISTED BELOW WERE DETECTED INTERPRETATION 09:55: 00 SEE NOTE Final This result do es not rule out the presence of a mutation ora diagnosis of cystic fibrosis disease (CF). The risk formutations that cause CF other than the ones tested dependsgreatly on family history, clinical presentation, andethnicity. Chance of Having a CF Mutation Ethnic Group Detection Before After Negative Rate Test Result Ashkenazi Adventist 94% 1 in 24 1 in 400Non- 88% 1 in 25 1 in 208CaucasianHispanic- [place]an 72% 1 in 46 1 in 164African-[place]an 65% 1 in 65 1 in 186Asian-[place]an 49% 1 in 94 1 in 184Other insufficient data available Health care providers, please contact your local [employer] genetic counselor or call Results Scorecard at [facility] ([phone]) for assistance withinterpretation of these results. MUTATIONS/POLYM ORPHISMS 09:55: 00 SEE NOTE Final MUTATIONS ANAL YZED: G85E (c.254G>A) S549N (c.1646G>A)394delTT (c.262delTT) G551D (c.1652G>A)R117H (c.350G>A) R553X (c.1657C>T)621+1 G>T (c.489+1G>T) R560T (c.1679G>C)711+1 G>T (c.579+1G>T) 1898+1 G>A (c.1766+1G>A)1078delT (c.948delT) 2183AA>G (c.2051delAAinsG)R334 W (c.1000C>T) 2184delA (c.2052delA)R347H (c.1040G>A) 2789+5 G>A (c.2657+5G>A)R347P (c.1040G>C) 3120+1 G>A (c.2988+1G>A)A455E (c.1364C>A) A9117E (c.3484C>T)V388bts (c.1519delATC) 3659delC (c.3528delC)B492fmp (c.1521delCTT) 3849+10kb C>T (c.0047+90719X>T)V520 F (c.1558G>T) 3876delA (c.3744delA)1717-1 G>A (c.1585-1G>A) 3905insT (c.3773insT)G542X (c.1624G>T) S5498C (c.3846G>A)S549R (c.1645A>C or c.1647T>G) J3401G (c.3909C>G) This assay detects thirty-two mutations, including thetwenty-three core mutations recommended by the AmericanCollege of Medical Genetics (ACMG) and the [place] Congressof Obstetricians and Gynecologists (ACOG) forpopulation-based CF carrier screening. In addition to theACMG/ACOG panel, this assay detects nine additionalmutations. While these mutations are rare in the [place]population, the scientific and medical literature indicatesthat these mutations are not benign polymorphisms. Thestatus of the intron 9 (formerly intron 8) polyT tract isreported only when the R117H mutation is detected. METHOD 09:55: 00 SEE NOTE Final The mutations are detected by multiplex-polymerase chainreaction (PCR) amplification of specific CF gene regions,followed by nucleotide sequence analysis on a massivelyparallel sequencing platform. Although rare, false positiveor false negative results may occur. All results should beinterpreted in the context of clinical findings, relevanthistory, and other laboratory data. REVIEWER 09:55: 00 SEE NOTE Final A portion of t he testing was performed at [facility] [place]Laboratory results and submitted clinical informationreviewed by Lucille Lora, Ph.D., [facility], [facility]. For additional information, please refer [email or web address].com/fa q/cfscreen(This link is being provided for informational/educati onalpurposes only.) This test was developed and its analytical performancecharacteri stics have been determined by [employer].It has not been cleared or approved by FDA. This assay hasbeen validated pursuant to the CLIA regulations and is usedfor clinical purposes. Panel Description: HEMOGLOBIN A1c Final HEMOGLOBIN A1c 09:55: 00 5.2 % of total Hgb <5.7 N Final For the purpose of screening for the presence ofdiabetes: <5.7% Consistent with the absence of diabetes5.7-6.4% Consistent with increased risk for diabetes (prediabetes)> or =6.5% Consistent with diabetes This assay result is consistent with a decreased riskof diabetes. Currently, no consensus exists regarding use ofhemoglobin A1c for diagnosis of diabetes in children. According to [place] Diabetes Association (ADA)guidelines, hemoglobin A1c <7.0% represents optimalcontrol in non- diabetic patients. Differentmetrics may apply to specific patient populations. Standards of Medical Care in Diabetes(ADA). Panel Description: OBSTETRIC PANEL Final ANTIBODY SCREEN, RBC W/REFL ID, TITER AND AG 09:55: 00 NO ANTIBODIES DETECTED N Final Reference range No antibodies detected This assay is a screening test for the detection of red blood cell antibodies. The test is not to be used for pretransfusion screening or for the medical management of an alloimmunized . Panel Description: OBSTETRIC PANEL Final ABO GROUP 09:55: 00 B Final RH TYPE 09:55: 00 RH(D) POSITIVE Final For additional information, please refer to http://education.[employer]/faq/ RIK117 (This link is being provided for informational/educati onal purposes only.) Panel Description: OBSTETRIC PANEL Final RPR (DX) W/REFL TITER AND CONFIRMATORY TESTING 09:55: 00 NON-REACTIV E NON-REACTI VE N Final Panel Description: OBSTETRIC PANEL Final HEPATITIS B SURFACE ANTIGEN 09:55: 00 NON-REACTIV E NON-REACTI VE N Final For additional information, please refer to http://education.[employer]/faq/ DEI127 (This link is being provided for informational/educati onal purposes only.) CONFIRMATION 09:55: 00 DNR N Final Panel Description: OBSTETRIC PANEL Final RUBELLA AB (IGG), IMMUNE STATUS 09:55: 00 5.28 Index N Final Index Interpre tation ----- <0.90 Not consistent with immunity 0.90-0.99 Equivocal > or = 1.00 Consistent with immunity The presence of rubella IgG antibody suggests immunization or past or current infection withrubella virus. Panel Description: HIV 1/2 A NTIGEN/ANTIBODY,FOURTH GENERATION W/RFL Final HIV AG/AB, 4TH GEN 09:55: 00 NON-REACTIV E NON-REACTI VE N Final HIV-1 antigen and HIV-1/HIV-2 antibodies were notdetected. There is no laboratory evidence of HIVinfection. PLEASE NOTE: This information has been disclosed toyou from records whose confidentiality may beprotected by state law. If your state requires suchprotection, then the state law prohibits you frommaking any further disclosure of the informationwithout the specific written consent of the personto whom it pertains, or as otherwise permitted by law.A general authorization for the release of medical orother information is NOT sufficient for this purpose. For additional information please refer tohttp://[employer]/fa q/GIS886(This link is being provided for informational/educati onal purposes only.) The performance of this assay has not been clinicallyvalidated in patients less than 2 years old. Panel Description: HEPATITIS C AB W/REFL TO HCV RNA, QN, PCR (REFL) Final HEPATITIS C ANTIBODY (REFL) 09:55: 00 NON-REACTIV E NON-REACTI VE N Final HCV antibody was non-reactive. There is no laboratory evidence of HCV infection. In most cases, no further action is required. However,if recent HCV exposure is suspected, a test for HCV RNA(test code 05879) is suggested. For additional information please refer tohttp://education.[employer]/fa q/YVE24c7(This link is being provided for informational/educati onal purposes only.) Panel Description: REFLEX TIQ Final REFLEX TIQ 09:55: 00 Final OUR RECORDS IN DICATE THAT YOU HAVE ORDERED HEP C AB W/REFL (RFLORDER CODE 2960SB. THIS IS A REFLEX-SPECIFIC ORDER CODE.HOWEVER, ONLY THE INITIAL TEST WAS PERFORMED, BECAUSE WE DO NOTHAVE A REFLEX TESTING AUTHORIZATION FORM ON FILE FOR YOU. TO PERFORM A REFLEX TEST WE NEED YOU TO SIGN AN AUTHORIZATION FORM SPECIFYING (A) THE REFLEXIVE TEST AND (B) THE RESULTS THAT WILL TRIGGER THE PERFORMANCE OF THE REFLEX TEST. PLEASE CONTACT A PAGE TECHNICIAN AT [employer] IF YOU WOULD LIKE ADDITIONAL TESTING DONE OR CONTACT YOUR BLUEPRINT TRIMMER TO OBTAIN A COPY OF THE REFLEXIVE TESTING AUTHORIZATION FORM. Advance Directives Directive Yes / No Effective Date File Name No Information Encounters Encounter Description Practice Location Reason(s) For Visit Diagnoses Date Provider Providers Copied on Encounter [facility], [address], [place], [id number], [place] tel:[phone] MEDICAL routine (chief complaint) First trimester pregnancyEnco unter for gynecological examination (general) (routine) without abnormal findingsEncou nter for screening for cardiovascula r disorders 3 Ynes Mak[address] [place], [address], [place]. tel:[phone] [facility], [address], [place], [id number], [place] tel:[phone] MEDICAL CPSP ORIENTATION PER PROTOCOLS/SEE CPSP FILE (chief complaint) Encntr for suprvsn of normal preg, unsp, first trimester 3 Panfilo Mcmillan. [address] [place], [address], [place]. tel:[phone] OFFICE/OUTPA TIENT VISIT, [facility], [address], [place], [id number], [place] tel:[phone] MENTAL HEALTH psych follow up (chief complaint) Generalized Anxiety DisorderGERD without esophagitis [address] [place], [address], [place]. tel:[phone] OFFICE/OUTPA TIENT VISIT, [facility], [address], [place], [id number], [place] tel:[phone] MEDICAL test (chief complaint) Encounter for administrativ e examinations, unspecifiedEn counter for test, result positiveEncnt r screen for infections w sexl mode of transmissAmen orrhea, unspecified Nov 3 Omoko Deyanira. [address] [place], [address], [place]. tel:[phone] [facility], [address], [place], [id number], [place] tel:[phone] MEDICAL WC No Information Oct-[address] [place], [address], [place]. tel:[phone] OFFICE/OUTPA TIENT VISIT, [facility], [address], [place], [id number], [place] tel:[phone] MENTAL HEALTH WC f/u psych (chief complaint) Generalized Anxiety Disorder [address] [place], [address], [place]. tel:[phone] [facility], [address], [place], [id number], [place] tel:[phone] MEDICAL WC No Information Aug- 3 No Information PSYTX, OFF, 45-50 MIN [facility], [address], [place], [id number], [place] tel:[phone] MENTAL HEALTH CO f/u anxiety (chief complaint) Generalized Anxiety DisorderSocia l anxiety disorder [address] [place], [address], [place]. tel:[phone] OFFICE/OUTPA TIENT VISIT, [facility], [address], [place], [id number], [place] tel:[phone] MENTAL HEALTH CO psyc follow up (chief complaint) Generalized Anxiety DisorderGERD without esophagitisSo cial anxiety disorder May-[address] [place], [address], [place]. tel:[phone] OFFICE/OUTPA TIENT VISIT, [facility], [address], [place], [id number], [place] tel:[phone] MEDICAL WC anxiety f/u (chief complaint) GERD without esophagitisAn xietyInsomnia , unspecified type Mar- 3 No Information OFFICE/OUTPA TIENT VISIT, [facility], [address], [place], [id number], [place] tel:[phone] MEDICAL WC f/u GERD (chief complaint)Con stipation (chief complaint) Dietary counseling and surveillanceB mark mass index [BMI] 19.9 or less, adultGERD without esophagitisAb dominal bloatingConst ipation, unspecified constipation typeEncounter for screening for cardiovascula r disorders 3 Enrique Lees. [address] [place], [address], [place]. tel:[phone] [facility], [address], [place], [id number], [place] tel:[phone] MENTAL HEALTH WC Generalized Anxiety Disorder 3 Stacy Miller. [address] [place], [address], [place]. tel:[phone] OFFICE/OUTPA TIENT VISIT, [facility], [address], [place], [id number], [place] tel:[phone] MEDICAL WC GI discomfort (chief complaint)anx iety (chief complaint) GERD without esophagitisAn xietyOther constipationE ncounter for screening for cardiovascula r disordersEnco unter for administrativ e examinations, unspecified 3 No Information OFFICE/OUTPA TIENT VISIT, [facility], [address], [place], [id number], [place] tel:[phone] MEDICAL WC f/u on anxiety (chief complaint) Dietary counseling and surveillanceB mark mass index [BMI] 19.9 or less, adultHemorrho ids, unspecified hemorrhoid typeUnemploym ent, unspecifiedPr oblem related to primary support group, unspecifiedSt ress, not elsewhere classifiedAbd ominal bloatingGERD without esophagitisAn xietyEncounte r for screening for cardiovascula r disorders [address] [place], [address], [place]. tel:[phone] [facility], [address], [place], [id number], [place] tel:[phone] MENTAL HEALTH WC Generalized Anxiety DisorderEncnt r for obs for oth suspected diseases and cond ruled out 3 Stacy Miller. [address] [place], [address], [place]. tel:[phone] PSYTX, OFF, 45-50 MIN [facility], [address], [place], [id number], [place] tel:[phone] MENTAL HEALTH WC Encntr for obs for oth suspected diseases and cond ruled outGeneralize d Anxiety DisorderMajor depressive disorder, recurrent, moderatePost- traumatic stress disorder, chronic 3 No Information OFFICE/OUTPA TIENT VISIT, EST [facility], [address], [place], [id number], [place] tel:[phone] MEDICAL WC Follow Up of Anxiety (chief complaint)Det ails (chief complaint) Dietary counseling and surveillanceB mark mass index [BMI] 20.0-20.9, adultGERD without esophagitisAn xietyEncounte r for screening for cardiovascula r disorders 2 No Information PREV VISIT, EST, AGE 18-39YRS OLD [facility], [address], [place], [id number], [place] tel:[phone] MEDICAL WC Annual Physical (chief complaint) Dietary counseling and surveillanceB mark mass index [BMI] 20.0-20.9, adultAnxietyA bdominal bloatingAnnua l physical examChronic anemiaExercis e counselingEnc ounter for screening for cardiovascula r disorders 2 Robert Benavidez. [address] [place], [address], [place]. tel:[phone] [facility], [address], [place], [id number], [place] tel:[phone] MENTAL HEALTH WC Encntr for obs for oth suspected diseases and cond ruled out 2 Stacy Miller. [address] [place], [address], [place]. tel:[phone] OFFICE/OUTPA TIENT VISIT, [facility], [address], [place], [id number], [place] tel:[phone] MEDICAL WC Stomach Pain (chief complaint) Dietary counseling and surveillanceB mark mass index [BMI] 21.0-21.9, adultLeft upper quadrant painEncounter for screening for cardiovascula r disorders 2 No Information OFFICE/OUTPA TIENT VISIT, [facility], [address], [place], [id number], [place] tel:[phone] MEDICAL WC uti follow up (chief complaint) Dietary counseling and surveillanceB mark mass index [BMI] 21.0-21.9, adultDysuriaH eartburn symptomEncoun ter for screening for cardiovascula r disorders 2 Ynes Mak[address] [place], [address], [place]. tel:[phone] OFFICE/OUTPA TIENT VISIT, [facility], [address], [place], [id number], [place] tel:[phone] MEDICAL WC UTI (chief complaint)gas (chief complaint) Encounter for administrativ e examinations, unspecifiedDi etary counseling and surveillanceB mark mass index [BMI] 21.0-21.9, adultAcute UTIDeaf, bilateralNoni ntractable headache, unspecified chronicity pattern, unspecified headache typeAbdominal bloatingHeart burnAnxietySc reening for cholesterol levelScreenin g for diabetes mellitusScree jerad, deficiency anemia, ironScreening for thyroid disorderEncou nter for screening for cardiovascula r disorders 2 Damico Celia. [address] [place], [address], [place]. tel:[phone] OFFICE/OUTPA TIENT VISIT, [facility], [address], [place], [id number], [place] tel:[phone] MEDICAL WC ER follow up (chief complaint) Dietary counseling and surveillanceB mark mass index [BMI] 21.0-21.9, adultHistory of UTIEncounter for screening for cardiovascula r disorders 2 Ynes Mak. [address] [place], [address], [place]. tel:[phone] OFFICE/OUTPA TIENT VISIT, [facility], [address], [place], [id number], [place] tel:[phone] MEDICAL WC ER f/u UTI (chief complaint) Acute UTIMedication refill 2 Jennifer Goyal. [facility] [place], [address], [place]. tel:[phone] [facility], [address], [place], [id number], [place] tel:[phone] MENTAL HEALTH WC Encntr for obs for oth suspected diseases and cond ruled out 2 Stacy Miller. [facility] [place], [address], [place]. tel:[phone] OFFICE/OUTPA TIENT VISIT, [facility], [address], [place], [id number], [place] tel:[phone] MEDICAL WC pelvic exam (chief complaint) Dietary counseling and surveillanceB mark mass index [BMI] 20.0-20.9, adultGynecolo gic exam normalEncount er for screening for cardiovascula r disorders 2 Ynes Mak. [address] [place], [address], [place]. tel:[phone] [facility], [address], [place], [id number], [place] tel:[phone] MENTAL HEALTH WC Encntr for obs for oth suspected diseases and cond ruled out 2 Stacy Angela. [address] [place], [address], [place]. tel:[phone] [place] [address], [address], [place], [id number], [place] tel:[phone] MEDICAL WC check (chief complaint) Encounter for administrativ e examinations, unspecifiedPr emature deliveredAcut e midline low back pain with sciatica, sciatica laterality unspecifiedEn counter for routine follow-up 2 Ynes Mak. [address] [place], [address], [place]. tel:[phone] [place] [address], [address], [place], [id number], [place] tel:[phone] MEDICAL WC No Information 2 Omoko Deyanira. [address] [place], [address], [place]. tel:[phone] [place] [address], [address], [place], [id number], [place] tel:[phone] MEDICAL WC No Information 2 Ynes Mak. [address] [place], [address], [place]. tel:[phone] [facility], [address], [place], [id number], [place] tel:[phone] MEDICAL WC No Information 2 Nellieri Obdulio. [address] [place], [address], [place]. tel:[phone] [facility], [facility] [address], [id number], [place] tel:[phone] MEDICAL WC History of placental abruptionHist ory of PROM in previous , currently , first trimesterHist ory of premature delivery, currently 2 Nellieri Obdulio. [address] [place], [address], [place]. tel:[phone] [facility], [address] [place] [address], [id number], [place] tel:[phone] MEDICAL WC routine (chief complaint) Body mass index (BMI) 20.0-20.9, adultEncounte r for administrativ e examinations, unspecified 2 No Information [facility], [address] [place] [address], [id number], [place] tel:[phone] MEDICAL WC No Information 2 Roxannenaniri Obdulio. [address] [place], [address], [place]. tel:[phone] [facility], [address] [place] [address], [id number], [place] tel:[phone] MEDICAL WC routine (chief complaint) Body mass index (BMI) 19 or less, adultSecond trimester pregnancyEnco unter for screening for cardiovascula r disordersUnem ployment, unspecifiedPr oblem related to primary support group, unspecified 2 Nellieri Obdulio. [address] [place] [address], [address], [place]. tel:[phone] OFFICE/OUTPA TIENT VISIT, EST [facility], [address] [place] [address], [id number], [place] tel:[phone] MEDICAL routine (chief complaint) First trimester pregnancyEnco unter for screening for cardiovascula r disorders 2 Nellieri Obdulio. [address] [place], [address], [place]. tel:[phone] [place] [address], [address] [place] [address], [id number], [place] tel:[phone] MEDICAL No Information 2 Ancillary Provider. [address] [place], [address], [place]. tel:[phone] [facility], [address] [place] [address], [id number], [place] tel:[phone] MEDICAL No Information 2 Ynes Mak. [address] [place], [address], [place]. tel:[phone] [facility], [address] [place] [address], [id number], [place] tel:[phone] MEDICAL routine (chief complaint) First trimester pregnancyEnco unter for administrativ e examinations, unspecifiedHi gh-risk in first trimesterHist ory of placental abruptionHist ory of PROM in previous , currently , first trimesterHist ory of premature delivery, currently Encou nter for screening for cardiovascula r disorders8 weeks gestation of pregnancyBody mass index (BMI) 21.0-21.9, adult May- 2 Nellieri Obdulio. [address] [place], [address], [place]. tel:[phone] [place] [address], [address] [place] [address], [id number], [place] tel:[phone] MEDICAL CPSP Orientation per protocols/see CPSP file (chief complaint) First trimester 2 Omoko Deyanira. [address] [place], [address], [place]. tel:[phone] OFFICE/OUTPA TIENT VISIT, [facility], [address], [place], [id number], [place] tel:[phone] MEDICAL WC test (chief complaint) Encounter for administrativ e examinations, unspecifiedEn counter for test, result positiveEncnt r screen for infections w sexl mode of transmissAmen orrhea, unspecified Apr- 2 Omoko Deyanira. [address] [place], [address], [place]. tel:[phone] OFFICE/OUTPA TIENT VISIT, [facility], [address], [place], [id number], [place] tel:[phone] MEDICAL WC Follow up on lab test(s) (chief complaint) Iron deficiency anaemiaAnxiet ySevere persistent asthma without complication 2 No Information OFFICE/OUTPA TIENT VISIT, [facility], [address], [place], [id number], [place] tel:[phone] MEDICAL WC medication refill (chief complaint) Body mass index (BMI) 21.0-21.9, adultEncounte r for medication refillEncount er for screening for cardiovascula r disorders 2 Kimi Alvarez. [address] [place], [address], [place]. tel:[phone] Consulting Provider: Jyotsna Rocha, [facility] [place], [address]. tel:[phone] [facility], [address], [place], [id number], [place] tel:[phone] MEDICAL WC Pleurodynia Feb-2 2 No Information OFFICE/OUTPA TIENT VISIT, [facility], [address], [place], [id number], tel:[phone] MEDICAL WC Preventive exam (chief complaint)F/u asthma (chief complaint) Body mass index (BMI) 21.0-21.9, adultSevere persistent asthma without complicationA nxietyPleurit ic chest painMicrocyti c anemiaMixed hyperlipidemi a 2 No Information OFFICE/OUTPA TIENT VISIT, [facility], [address], [place], [id number], [place] tel:[phone] MEDICAL WC asthma (chief complaint) Body mass index (BMI) 22.0-22.9, adultMild intermittent asthma with (acute) exacerbationE ncounter for screening for cardiovascula r disorders 2 Kimi Alvarez. [address] [place] [address], [address], . tel:[phone] Consulting Provider: Jyotsna Rocha, [facility] [place], [address]. tel:[phone] OFFICE/OUTPA TIENT VISIT, [facility], [address], [place], [id number], [place] tel:[phone] MEDICAL WC MED REFILL (chief complaint) Body mass index (BMI) 22.0-22.9, adultAnemia, unspecifiedEx cessive and frequent menstruation with regular cycleEncounte r for screening for cardiovascula r disorders 1 Ynes Mak. [address] [place], [address], . tel:[phone] OFFICE/OUTPA TIENT VISIT, [facility], [address], [place], [id number], [place] tel:[phone] MEDICAL WC anxiety (chief complaint)CC Anxiety (chief complaint) Body mass index (BMI) 23.0-23.9, adultAnxietyD eaf-mutismEpi gastric pain 1 No Information OFFICE/OUTPA TIENT VISIT, [facility], [address], [place], [id number], [place] tel:[phone] MEDICAL WC Office Visit (chief complaint) Iron deficiency anemia, unspecified iron deficiency anemia typeVitamin D deficiencyPre diabetesEleva ruddy liver enzymesMixed hyperlipidemi aEpigastric pain 1 No Information OFFICE/OUTPA TIENT VISIT, [facility], [address], [place], [id number], [place] tel:[phone] MEDICAL WC c/o stomach pain (chief complaint) Body mass index (BMI) 23.0-23.9, adultEpigastr ic painAnxietyDe af-mutismEnco unter for screening for cardiovascula r disorders 1 Kimi Alvarez. [address] [place], [address], [place]. tel:[phone] OFFICE/OUTPA TIENT VISIT, [facility], [address], [place], [id number], [place] tel:[phone] MEDICAL WC Office Visit (chief complaint) Medication refillEpigast jose painLUQ painAnxietyEn counter for screening for cardiovascula r disorders 1 No Information PREV VISIT, [facility], AGE 18-39YRS OLD [facility], [address], [place], [id number], [place] tel:[phone] MEDICAL WC physical (chief complaint) Body mass index (BMI) 23.0-23.9, adultDeaf-mut ismPhysical exam, annualAnxiety Chronic GERDEncounter for vitamin deficiency screeningScre ening cholesterol levelScreenin g for deficiency anemiaScreeni ng for diabetes mellitusScree jerad for STD (sexually transmitted disease)Scree jerad for thyroid disorderEncou nter for screening for cardiovascula r disorders 1 Amauri Guardado. [address] [place], [address], [place]. tel:[phone] OFFICE/OUTPA TIENT VISIT, [facility], [address], [place], [id number], [place] tel:[phone] MEDICAL WC telemedicine (chief complaint)Med refills (chief complaint) Anxiety 1 Amauri Guardado. [facility] [place], [address], [place]. tel:[phone] OFFICE/OUTPA TIENT VISIT, [facility], [address], [place], [id number], [place] tel:[phone] MEDICAL WC telemedicine (chief complaint) Mild intermittent asthma with (acute) exacerbationC hronic GERDDeaf-muti sm 1 Luis Armando Pressley. [address] [place], [address], [place]. tel:[phone] OFFICE/OUTPA TIENT VISIT, [facility], [address], [place], [id number], [place] tel:[phone] MEDICAL WC ER Follow up (chief complaint)Fol low up on lab test(s) (chief complaint) Body mass index (BMI) 24.0-24.9, adultMild intermittent asthma with (acute) exacerbationE ncounter for screening for cardiovascula r disorders 1 No Information [facility], [address], [place], [id number], [place] tel:[phone] MENTAL HEALTH WC Encntr for obs for oth suspected diseases and cond ruled out 1 Stacy Miller. [facility] [place], [address], [place]. tel:[phone] [facility], [address], [place], [id number], [place] tel:[phone] MEDICAL WC Preventive exam (chief complaint) Body mass index (BMI) 25.0-25.9, adultPhysical exam, annual 1 No Information [facility], [address] [place], [place], [id number], [place] tel:[phone] MEDICAL WC Telemedicine visit (chief complaint) Anxiety 0 1 No Information [facility], [address], [place], [place], [id number], [place] tel:[phone] MEDICAL WC Encntr for obs for oth suspected diseases and cond ruled out 1 No Information OFFICE/OUTPA TIENT VISIT, [facility], [address], [place], [id number], [place] tel:[phone] MEDICAL WC telemedicine (chief complaint) AnxietyAbdomi nal pain, unspecified abdominal location 1 Ramu Pelayo. [address] [place], [address], [place]. tel:[phone] [facility], [address], [id number], [place] tel:[phone] MEDICAL WC Excessive and frequent menstruation with regular cycleIrregula r menses 1 Ynes Mak. [address] [place], [address], [place]. tel:[phone] OFFICE/OUTPA TIENT VISIT, [facility], [address], [id number], [place] tel:[phone] MEDICAL WC TELEMED (chief complaint) Breakthrough bleeding 1 Ynes Mak. [address] [place], [address], [place]. tel:[phone] OFFICE/OUTPA TIENT VISIT, [facility], [address] [place] [id number], [place] tel:[phone] MEDICAL WC TELEMED (chief complaint) Breakthrough bleeding 1 Waziri Obdulio. [address] [place], [address], [place]. tel:[phone] OFFICE/OUTPA TIENT VISIT, [facility], [address], [place], [id number], [place] tel:[phone] MEDICAL WC Follow Up of Anxiety (chief complaint) Anxiety Jan- 0 Amauri Guardado. [address] [place], [address], [place]. tel:[phone] OFFICE/OUTPA TIENT VISIT, [facility], [address], [place], [id number], [place] tel:[phone] MEDICAL WC Body mass index (BMI) 25.0-25.9, adultExcessiv e and frequent menstruation with regular cycle 0 Waziri Obdulio. [address] [place], [address], [place]. tel:[phone] PHONE E/M BY PHYS 11-20 MIN [facility], [address], [place], [id number], [place] tel:[phone] MEDICAL WC HEAVY AND PORLONGED MENSES (chief complaint) Excessive and frequent menstruation 0 Waziri Obdulio. [address] [place], [address], [place]. tel:[phone] OFFICE/OUTPA TIENT VISIT, [facility], [address], [id number], [place] tel:[phone] MEDICAL CO Anxiety (chief complaint)Tel emedicine (chief complaint) Anxiety Oct- 0 Amauri Guardado. [address] [place], [address], [place]. tel:[phone] PHONE E/M BY PHYS 11-20 MIN [facility], [address], [id number], [place] tel:[phone] MEDICAL WC TELEMED (chief complaint) Irregular menses Oct- 0 Waziri Obdulio. [address] [place], [address], [place]. tel:[phone] PREV VISIT, [facility], AGE 18-39YRS OLD [facility], [address], [place], [id number], [place] tel:[phone] MEDICAL WC annual exam (chief complaint) Body mass index (BMI) 25.0-25.9, adultWell woman examScreening for cervical cancerScreeni ng for HPV (human papillomaviru s)Excessive and frequent menstruation with regular cycle Oct- 0 Waziri Obdulio. [address] [place] [address], [address], [place]. tel:[phone] OFFICE/OUTPA TIENT VISIT, [facility], [address], [place], [id number], [place] tel:[phone] MEDICAL irregular menstruation (chief complaint) Body mass index (BMI) 25.0-25.9, adultExcessiv e and frequent menstruation with regular cycle Oct-0 0 Waziri Obdulio. [address] [place] [address], [address], [place]. tel:[phone] PHONE E/M BY PHYS 11-20 MIN [facility], [address], [place], [id number], [place] tel:[phone] MEDICAL WC TELEMED (chief complaint) Irregular menses Sep- 0 Waziri Obdulio. [address] [place], [address], [place]. tel:[phone] OFFICE/OUTPA TIENT VISIT, [facility], [address], [place], [id number], [place] tel:[phone] MEDICAL WC Telemedicine visit (chief complaint)UTI (chief complaint) UTI (urinary tract infection), uncomplicated Jul- 0 Hathuc Chinhnam. [address] [place], [address], [place]. tel:[phone] OFFICE/OUTPA TIENT VISIT, [facility], [address], [place], [id number], [place] tel:[phone] MEDICAL WC UTI (chief complaint)Tel emedicine (chief complaint) UTI (urinary tract infection), uncomplicated 0 Hathuc Chinhnam. [address] [place], [address], [place]. tel:[phone] OFFICE/OUTPA TIENT VISIT, [facility], [address], [place], [id number], [place] tel:[phone] MEDICAL WC TELEMED (chief complaint) Urinary frequency 0 Ynes Mak. [address] [place], [address], [place]. tel:[phone] OFFICE/OUTPA TIENT VISIT, [facility], [address], [place], [id number], [place] tel:[phone] MEDICAL WC Telemedicine visit (chief complaint)Anx iety (chief complaint) Anxiety 0 Hathuc Chinhnam. [address] [place], [address], [place]. tel:[phone] [facility], [address], [place], [id number], [place] tel:[phone] MENTAL HEALTH WC Encntr for obs for oth suspected diseases and cond ruled out 0 No Information OFFICE/OUTPA TIENT VISIT, [facility], [address], [place], [id number], [place] tel:[phone] MEDICAL WC Telemedicine visit (chief complaint)f/u anxiety meds (chief complaint) AnxietyEducat ed about COVID-19 virus infection 0 Tamara Marlow. [address] [place], [address], . tel:[phone] Consulting Provider: Domingo Roach, [address] [place], [address]. tel:[phone] Family History Family Member Type Diagnosis Age At Onset No Information Immunizations Vaccine Date Status Comments Flu Quadrivalent refused Source: New Immunization Record Tdap refused Source: New Imm unization Record Td (adult), adsorbed refused Source: New Immunization Record Flu Quadrivalent pending Source: New Immunization Record Payers Payer name Insurance type Covered green party ID Herveeric stellaroberto(s) [facility] [id number] [employer] [facility] [id number] [facility] [id number] [employer] [facility] [id number] [facility] [id number] [employer] [facility] [id number] Social History Type Description Quantity Date Captured Comments Alcohol Use Details No Caffeine Use Details No Tobacco Use Status Current non-smoker Smoking Status Never smoker Non-Smoking Tobacco Use Details : No Details Available : No Details Available Sex Female Yes - Patient is currently Sexual Orientation Straight or heterosexual Gender Identity Female Vital Signs Date / Time: Height Weight BMI Pulse Rate Blood Pressure Temperature Respiratory Rate Body Surface Area Head Circumference Head Circ. Percentile Wt./Scar. Percentile BMI percentile Pulse Ox Inhaled Ox 1:52 PM 60.00 in 40.778 kg (89.90 lbs) 17.5 6 kg/m eter (2) 75 /min 99/67 mm[Hg] 98.30 F 18 /min Chief Complaint And Reason For Visit From encounter dated '01/11/2023 13:30'. routine (chief complaint) Reason For Referral Reason For Referral No Information Plan Of Treatment Date Type Action Status Goal Lifestyle education regardin g diet completed Goal Lifestyle education regardin g diet completed Goal Lifestyle education regardin g diet completed Goal Lifestyle education regardin g diet completed Goal Lifestyle education regardin g diet completed Goal Lifestyle education regardin g diet completed Goal Lifestyle education regardin g diet completed Goal Lifestyle education regardin g diet completed Goal Lifestyle education regardin g diet completed Goal Lifestyle education regardin g diet completed Goal Lifestyle education regardin g diet completed Goal Lifestyle education regardin g diet completed Goal Lifestyle education regardin g diet completed Goal Lifestyle education regardin g diet completed Goal Lifestyle education regardin g diet completed Goal Lifestyle education regardin g diet completed Goal Lifestyle education regardin g diet completed Goal Lifestyle education regardin g diet completed Referral Ordered: Gastroenterology (related to GERD without esophagitis) ordered Referral Ordered: OB US, DETAILED, SNGL FETUS Appointment date/timeframe: 08/20/2021 ordered Referral Ordered: OB US < 14 WKS, SINGLE FETUS Appointment date/timeframe: 06/30/2021 ordered Referral Ordered: Obstetrics (related to High-risk in first trimester) ordered Referral Ordered: Referrals: Obstetrics. Assume care ordered Referral Ordered: Psychiatry (related to Anxiety) ordered Referral Ordered: Referrals: Psychiatry. Evaluate and treat ordered Referral Ordered: Radiology (related to Pleuritic chest pain) ordered Referral Ordered: Radiologic Examination Chest 2 Views for Pleuritic chest pain ordered Referral Ordered: Gastroenterology (related to Epigastric pain) ordered Referral Ordered: Referrals: Gastroenterology. Evaluate and treat ordered Referral Referred To: Nebulizer Mask and tubing Ordered: Referrals: Nebulizer Mask and tubing ordered Referral Ordered: Loreta Sandoval MD -Psychiatry (related to Anxiety) ordered Referral Referred To: Loreta Sandoval MD [address] [place], [phone] Ordered: Referrals: Psychiatry. Loreta Sandoval MD ordered Referral Ordered: Gynecology (related to Excessive and frequent menstruation) ordered Referral Ordered: Referrals: Gynecology. Evaluate and treat ordered Referral Ordered: TRANSVAGINAL US, NON-OB ordered Patient Education Hand-Washing: Care Inst ructions completed Patient Education Learning About Hand-Was jasson completed Patient Education Learning About Hand-Was jasson completed Patient Education Learning About Hand-Was jasson completed Patient Education Learning About Hand-Was jasson completed Patient Education Hand-Washing: Care Inst ructions completed Patient Education Gas and Bloating: Care Instructions completed Patient Education Learning About Linx for Gastroesophageal Reflux Disease (GERD) completed Patient Education Gastroesophage al Reflux Disease (GERD): Care Instructions completed Patient Education Learning About Hand-Was jasson completed Patient Education Learning About Hand-Was jasson completed Patient Education Asthma in Adults: Care Instructions completed Patient Education Learning About Asthma T riggers completed Patient Education Asthma: Your Action Mike n completed Patient Education Anxiety Disorder: Care Instructions completed Patient Education High Cholesterol: Care Instructions completed Patient Education Learning About Hand-Was jasson completed Patient Education Learning About Hand-Was jasson completed Patient Education Hand-Washing: Care Inst ructions completed Patient Education Learning About Hand-Was jasson completed Patient Education Hand-Washing: Care Inst ructions completed Patient Education Anxiety Disorder: Care Instructions completed Patient Education Gastroesophage al Reflux Disease (GERD): Care Instructions completed Patient Education Hand-Washing: Care Inst ructions completed Patient Education Learning About Hand-Was jasson completed Patient Education 11 Hand-Washing Tips fo r Your Hospital Stay completed Patient Education Learning About Hand-Was jasson completed Unknown Immunization Flu Quadrivalent ordered History Of Present Illness Encounter Date Complaint History Of Prese nt Illness routine CPSP ORIENTATION PER PROTOCOLS/SEE CPSP FILE IN PERSON APPOINTMENT. PATIENT HAS HEARING DISABILITY USES ASL. PATIENT'S (JOHN UNGER) INTERPRETED FOR PATIENT. Briefly discussed the following handouts: Mercury in Fish ([place] Dept of Health), Sudden Infant Syndrome ([place] Dept). STT/NUTR - H/O: Get The Folic Acid You Need, Don't Get Sick From The Foods You Eat. H/O: Expecting? Protect Yourself and Your Baby from Whooping Cough and Flu, Zika Virus Disease ([place] Dept of Public Health), H/O: Signs and Symptoms of Heart Disease. Patient, through her interpretation, stated no nee to review handouts since she had just received them last year. Advised patient that due to her history of high risk her OB provider might referrer to a high risk medical office and or a highway patrol officer provider. Both patient and her understood. PATIENT DECLINED FURTHER CPSP SERVICES. All CPSP handouts given to patient. CHANTALE Newman Comments: 37 y/o F at 6 weeks. Pt. states has stopped all Psycyh medication 2/2 to . Pt. requesting evaluation for GERD during . psych follow up test LMP was 11/17/19 23. LMP date is approximate. LMP date is unknown. Client was not taking control pills at or around the time of her LMP. Context: confirmed by lab test on 12/27/2022. Lab: [facility]. The client had 1 previous . Associated symptoms include nausea. Pertinent negatives include anorexia, bleeding, breast tenderness, constipation, edema, fatigue, fever, headache, heartburn, irritability, pelvic pain, spotting, urinary difficulty, vaginal discharge, vomiting. f/u psych Comments: 37 y/o F with pmh completely deaf bilaterally. Pt. states shes has been taking propranolol for anxiety for several years. Trial Zoloft, Pt. states had bad reaction cannot articulate what the adverse reaction was that was experienced. Pt. states she does not want to continue Zoloft is open to trial alternative SSRI. Will trial Lexapro 5mg qdaily. f/u in 6 weeks. f/u anxiety Comments: 37 y/o F with pmh completely deaf bilaterally. Pt. states shes has been taking propranolol for anxiety for several years. Trial Zoloft, Pt. states had bad reaction cannot articulate what the adverse reaction was that was experienced. Pt. states she does not want to continue Zoloft is open to trial alternative SSRI. Will trial Lexapro 5mg qdaily. f/u in 6 weeks. psyc follow up Comments: 37 y/o F with PMH deafness bilateral, social anxiety, generalized anxiety. Pt. states she has been taking proranolol 10mg qdaily with moderate effect for social anxiety. Pt. states has been taking xanax prn for panic attack. Presents today for psych medication review and optimization. anxiety f/u Video and Audio VisitConsent Obtained VerballyIdentity Verified.Total time spent operations management trainee: 15 min.37 y/o F seen for anxiety concerns. Previously seen by office psychiatry. Patient reports she needs refills of alprazolam. Pt reports escitalopram caused her to have sweating so she stopped it after one day. Reports trouble sleeping and nightmares. Has f/u with Dr Roach for anxiety next month. GI concern, requesting refill for Protonix. Notes she still has some discomfort but Protonix helps. Last dose of Protonix was today. Was previously referred to GI and h.pylori exam was ordered in office. Pt notes she has not received referral for GI yet. Stool test for h.pylori was not completed. f/u GERD Patient is a 37- year-old female with PMH of GERD, anxiety, with deafness and mutism who presents today for GERD follow-up. Conversation done with the support of an ASL jewelry manager. Patient states that she is still having symptoms of reflux with exacerbation of symptoms from various types of foods. Apparently patient has been medication after eating breakfast despite previous instructions otherwise. It also appears that in the past she had been advised to switch to Pepcid though patient states that she did not want to switch because she did not like the feeling she had while taking Pepcid. Patient is complaining of still feeling very and bloated after eating. She does say that the Gas-X tablets have helped somewhat with her bloating. She also says that taking probiotics has helped with her symptoms. Constipation Additional infor donta: States that miralax does not work well for her. Last BM was 3 days ago. anxiety also c/o feeling anxious and stressed out GI discomfort pt is deaf and m [place]. communicates via writing.c/o LUQ abdominal pain worse after certain foods, pain is chronic.pt has taken Protonix which helps a bit. requesting a different medication as she is still having pain after eatinghusband reports pt had abd ct scan secondary to same pain about 1 month ago which was completely normal.requesting endoscopypt also reports issues with constipation f/u on anxiety Jerica Kapadia rson - f/u GERD/anxiety. 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 Sent 1 mo supply with refills- Was discouraged on restarting ativan due to addiction potential and restarting propranolol due ot being on an inhaler- Highly recommended to start therapy- Has follow up appointment with psychiatrist on patient states that she does not want to start Prozac as recommended by her psychiatrist Dr. Espinoza stating that she thinks it will make her dizzy. She again requests Ativan and propranolol for PRN medications for her anxiety. Pt denies any SI/HI at this time.At last appointment patient was prescribed Protonix 40mg for GERD. Patient has some confusion as she was unsure of whether or not to still take previous famotidine prescription. She also had several questions regarding specific foods which could possibly exacerbate her GERD>Patient also complaining of discomfort related to hemorrhoids. Patient states that she has had hemorrhoid issues in the past associated with when she has constipation. Has not been taking any stool softeners recently and would like new prescription. Denies any maren bleeding from rectum. Follow Up of Anxiety Details Patient is a 36- year-old female with PMH of anxiety, GERD, and who is deaf and mute who presents today for follow-up of GERD symptoms. Patient has been complaining of worsening reflux and stomach discomfort. She states that she especially has felt dyspepsia when eating foods such as spaghetti sauce which she eats often. Denies any nausea or vomiting, diarrhea or constipation. States that she is unsure of what foods she should and should not be eating to prevent her reflux.Of note, patient does still complain of anxiety. She says that despite being prescribed Lexapro at her last appointment she has not taken them because she says that it makes her feel dizzy. Patient does have an appointment with psychiatry in February, And she states that she does plan to follow through with that appointment. Annual Physical Patient is a 36 year old female with anxiety, GERD, and deafness who presents for annual physical. She had labs completed a few months ago. She states she has been struggling with her anxiety and often has palpitations and excessive worry. She has previously been on propranolol 10mg PO BID but ran out of the medication. She is also requesting Ativan. She has an appointment with a psychiatrist on February 23.She is also struggling with feeling bloated with acid reflux, which limits her options for food. She has tried Pepcid with moderate relief. She denies fever, chills, abdominal pain, nausea, vomiting, diarrhea, constipation, melena, or hematochezia or weight loss.She is not up to date on her Tdap or flu vaccines but does not want to receive these vaccines at this time. Stomach Pain pt is deaf and [place], communicates via writing. Poor grammar on writing. Pt is able to communicate LUQ abdominal pain worse after meals. +bloating and frequent burping.s/p 10 day course of antibiotic for uti treatmenthx anxiety, reports she cannot take omeprazole due to worsening effect on anxiety.Pt is concerned about stomach ulcer, requesting EGD. uti follow up urine culture; r esults discussed and all questions answered. more than 20 min spend in discussing and counseling. follow up as needed discussedimportance of annual testing and proper follow discussed and recommended.states did not take Macrobid as it make give her heartburn and vomitasking for keflex low dose; 250mg as she does well with italso asking for meds to alleviate heartburn symptoms. gas Additional infor mation: reports she has been eating beans. pt has tried gas x with minimal relief. reports she has acid reflux at times. pt has been drinking caffeine. UTI Onset: 2 Weeks. Pain scale: 0/10. Presenting/Initial symptoms include burning. Associated symptoms include dysuria. Pertinent negatives include fever, flank pain, nausea or vomiting. ER follow up Comments: report s she went to ED and treated for uti she was given bactrim for 5 daysshe took 4 days dose and start feeling tired and anxiety and stopped medsdoes not have any urinary symptoms nowno urinary pain; no urinary frequency; no flank pain; no fever or chills. ER f/u UTI Associated sympt oms include dysuria, frequency, urgency. Pertinent negatives include hematuria, vomiting, pelvic pain, vaginal discharge, itching, skin rash, SOB, chest pain. Patient states needs a different medication for UTI due to reaction: abdominal upset, nausea, itchy throat. Patient also request for medication refill for anxiety pelvic exam reports no pelvi c painlmp was 9-5 and she bled normal for 4-5 days; no heavy bleeding; no pelvic painstates she does feel sad and depressed at times and thinks she needs therapy; but did not get a call from our behavioural health deptno other complaints check The client has no history of domestic violence. Additional Information: reports 7-18 she had contraction and pelvic pain went to hospital and gave ; [place] had [place] [facility] [place] follow up exam since delivery. reports no pelvic pain and or vaginal bleeding today. c/o having low back pain that comes and goesalso requesting refill of her inhaler since h/o asthma. I have offered behavioral health eval and she has agreed to have eval done today. no other complaints. routine routine routine routine CPSP Orientation per protocols/see CPSP file WRITTEN VERIFIED PATIENT'S NAME AND DATE OF . Reviewed/discussed and gave the following handouts: Mercury in Fish ([place] Dept of Health), Sudden Syndrome ( Dept). Reviewed STT/NUTR - discussed and gave H/O: Get The Folic Acid You Need, Don't Get Sick From The Foods You Eat. (Dept of Health), Expecting? Protect Yourself and Your Baby from Whooping Cough and Flu, Zika Virus Disease ([place] Dept of Public Health), Reviewed STT/HE-discussed and gave H/O: Signs and Symptoms of Heart Disease. Patient Verbally Consented Signature for Orientation Forms. All Handouts will be mailed to patient's address on file. PATIENT DECLINED CPSP COUNSELING. Daniel KENYON. test LMP was 03/22/19 22. LMP date is approximate. LMP date is unknown. Client was not taking control pills at or around the time of her LMP. Context: confirmed by home test on 05/10/2021. confirmed by lab test on 05/13/2021. Lab: [facility]. Associated symptoms include fatigue, heartburn, nausea. Pertinent negatives include anorexia, bleeding, breast tenderness, constipation, edema, fever, headache, irritability, pelvic pain, spotting, urinary difficulty, vaginal discharge, vomiting. Follow up on lab test(s) 36 y/o F with pertinent PMHx asthma, anxiety, anemia presents for lab results and symptom reassessment. At last appt, pt was having worsening asthma, was given Symbicort and sent to asthma specialist. Pt states the Symbicort was too strong, and specialist switched her to Flovent, with great improvement in her symptoms. CXR ordered d/t chest pain returned negative. Pain has resolved.Pt is requesting Xanax for anxiety, was given trial of propranolol and hydroxyzine previously, which patient states has not helped.Pt has a history of iron deficiency anemia, has been adherent to ferrous sulfate, although anemia remains around 8, with repeat iron panel showing unchanged iron deficiency. medication refill Comments: 36y/o female mute/deaf here for follow-up requesting med refill for their chronic conditions: Anxiety. Patient states she is taking medication as prescribed. Patient states she follows healthy diet and exercise every day. Denies headache, numbness, SOB, Chest pain. Per patient she will follow up to her PCP to discuss other alternatives for Anxiety. Medication: -Propranolol F/u asthma 36-year-old deisi aguirre with pertinent history of deafness and mutism presents for shortness of breath and chest pain. Patient states that she has been under increased stress lately due to hyperactivity of her son, and that is causing her to have sharp chest pain. She is also been requiring increased use of her albuterol inhaler, with daily requirements. She describes her chest pain as sharp, worse when taking a deep breath, and reproducible to palpation around right upper chest. She denies any wheezing, chest pressure, radiation of pain, numbness, weakness, lightheadedness. Of note, recent labs came back showing elevated lipid panel and microcytic anemia with hemoglobin of 8.7. Results scanned into chart. Preventive exam Currently pregna nt: no. The client states she uses Condoms, male for control. She has not been exposed to passive smoke. She has not been exposed to passive vaping. She does not drink alcohol. Comments: 36y/o female with Hx of asthma here with for medication refill. Patient states she had an episode of asthma yesterday and went to ER but unable to wait due to high volume of patients to be seen in ER. Patient Stated she has no wheezing or SOB at this time, but afraid she had another asthma attack she is out of her medication. Patient is deaf and mute helps her with communications and understands. asthma MED REFILL reports she used tranexamic acid as need during heavy menstrual bleeding only. she is happy and satisfied with us of meds and she does not have any side effects. requesting refill of tranexamic acid. no other complaints. anxiety CC Anxiety Patient is a 35- year-old female with a past medical history of anxiety, asthma, and patient is deaf and mute who complains of a needlelike pain located in the epigastric region and left upper quadrant stomach pain. Patient complains of continued anxiety and would like to start a new medication today. She has previously tried sertraline and citalopram but she stopped taking those medications due to GI side effects. Patient would also like to speak with behavioral health counselor although she has not been available in the previous times that they have called to make an appointmentPt still complains of epigastric pain. On 12/14 she was prescribed Omeprazole 20mg and sulcrafate. She states that she has tried taking Omeprazole but did not take them daily as she lost the bottle of the medication. Patient was seen on 12/26 with similar complaints of epigastric pain and a GI referral was ordered. Office Visit Lab results. Dis cussed lab results with patient. A1c 5.7Hgb 10.7Elevated ALT and AST, pending U/S per pt on Dec 28 mild hyperlipidemia Vitamin D 18Patient is a 35-year-old female with a past medical history of anxiety, asthma, and patient is deaf and mute who complains of a needlelike pain located in the epigastric region and left upper quadrant stomach pain x 3 months. Pain mostly occurs prior to eating and that it is relieved with consumption of milk. She also endorses burping and hiccuping more often. No improvement with omeprazole. Minor improvement with diet changes. c/o stomach pain Patient is a 35 -year-old female with a past medical history of anxiety, asthma, and patient is deaf and mute who complains of a needlelike pain located in the epigastric region and left upper quadrant stomach pain. She states that the pain started 3 months ago. She states that the pain mostly occurs prior to eating and that it is relieved with consumption of milk. She also endorses burping and hiccuping more often. She states that she has cut out hot foods, and caffeine from her diet well. Of note she was seen in the clinic on 1018 with similar complaints. At that time she was prescribed omeprazole for 2 weeks. She states that she has been taking omeprazole in the time since but she did not take it on a daily basis and only on certain occasions when she was feeling the stomach pain. Patient also states that she was not able to get the refill of her propranolol 10 mg which was refilled at her last appointment. She states that the there was an issue with sending the prescription to the pharmacy and she would like us to send it again. Office Visit Med refill, requ esting propanolol and lorazepam. Hx of anxietyepigastric pain and bloating LUQ pain, previous CT, x-ray and U/S done at another clinic. physical 35yr old F is he re today for a physical exam. She is accompanied by her (also deaf and mute) and son. The consultation is done by her writing her answers and questions. She writes down that she suffers from Anxiety and is asking for Propanolol and Lorazepam or Alprazolam. Expresses many concerns, requesting lab work, urinalysis and imaging.Past Medical History: deaf and mute, AnxietySurgical History: C-sectionLast pap smear: 10/2019, negative HPV, NILMSocial History: ETOH: no Tobacco: no Recreational/Illicit Drugs: no Marital Status: Control: None and does not desire control.Concerns: -Anxiety- wants alprazolam, propanolol - Stomach acid, heart burn and bloating x ? months - Has several months of LUQ pain, L side of rib cage is more pronounce than R side. Med refills 35yr old F w hx of hard of hearing, mute.John Pizano's states that he needs a refill for Anxiety called Lorazepam 0.5mg one tab as needed for Anxiety. She takes it when she feels anxious or has an anxiety attack. She is usually given a total of 10 pills in the bottle, the medication was last filled by another Dr. telemedicine Telephone VisitC onsent obtained-verballyIdentity verified.15min consultation. telemedicine Telephone visitc onsent obtained-verballyidentity verified.Patient is a 35-year-old female, with past medical history of hard of hearing, and asthma. Encounter today as a follow-up from ER visit due to asthma attack . Patient was given methylprednisolone 20 mg for 3 days, albuterol solution, and was recommended to request nebulizer machine for symptoms. pertinent negatives today for shortness of breath, syncope, chest pain, fever, chills, nausea, vomiting patient complains today of acid reflux that comes and goes ER Follow up Follow up on lab test(s) Patient is a 35-year-old female, with past medical history of hard of hearing, and asthma. Encounter today as a follow-up from ER visit due to asthma attack after inhaling chemicals from cleaning products. Patient was given albuterol solution, patient reports not having nebulizer machine at home. Today she has no concerns Preventive exam Currently pregna nt: no. The client states she uses Abstinence for control. She has not been exposed to passive smoke. She does not drink alcohol. Telemedicine visit Telephone Vis itConsent obtained - VerballyIdentity verified. patient is 35-year-old female with past medical history of deafness, he was seen a jewelry manager over the phone, encounter today was as a follow-up for anxiety, last encounter was requested referral to psychiatry to optimize treatment for anxiety, due to that the patient has been on a trial of Lexapro and sertraline and the patient has stopped the medication due to GI symptoms, and patient do not want to take any other medication that alprazolam. patient requests today a refill for alprazolam. patient denies any suicidal ideation or plan telemedicine telemedicine vis it consent obtained- verbally Identity verified.Patient is a 35 year old female with PMH of loss of hearing, call was made using an online merchandiser the historian is the , patient has PMH of Anxiety and irritable bowel syndrome poorly controlled, patient has been started on different SSRI and the patient stops taking them due to the medication do not agree with me", patient was given propranolol with improvement of the anxiety attacks. Denies any suicidal ideation or plan TELEMED CONFIRMEDCON SENT FOR TELEMED VISIT OBTAINED.REPORTS SHE LOST THE NUMBER TO TIRE TESTER MD AND ASKING FOR NUMBER TO CALL BACK AND REQUEST FOLLOW UP EVALUATION WITH THEM AND IF THERE IS NEED FOR MORE STUDIES. TELEMED CONFIRMEDCON SENT FOR TELEMED VISIT OBTAINED.REPORTS SHE HAD MENSTRUAL BLEEDING 01-30-2020 AND WAS TAKING TRANSANEMIC ACID AND BLEEDING STOPPED 02-05-2020. THEN SHE HAD ONE DAY OF BLEEDING 02-15-2020 AND NOW IT STOPPED BUT IS CONCENRED. NO PELVIC PAIN. FOLLOWED UP WITH TIRE TESTER MD AND SHE IS TO HAVE US DONE AND FOLLOW UP ONCE PELVIC US IS COMPLETED. Follow Up of Anxiety The client presents with anxious/fearful thoughts, difficulty concentrating, difficulty falling asleep, difficulty staying asleep and excessive worry but denies thoughts of or suicide. The client's risk factors exclude history of suicidal attempts. The Follow Up of Anxiety is aggravated by family issues. Additional information: [place] [id number].Wants Alprazolam 0.5mg PRN when she gets stressed which helps her calm down. She has been really busy and with work it has been horrible. Zoloft and Lexapro does not help. 11min consultation. Follow Up of Anxiety (comments) Telephone VisitConsent obtained - VerballyIdentity verified. f/u on irregular mensies HEAVY AND PORLONGED MENSES REPOR TS SHE STARTED BLEEDING AGAIN IN AND IT WAS HEAVY AND PROLONGED. AT TIMES SHE HAS HEAVY BLEEDING AND AT TIMES SHE HAS SPOTTING AND APPLIANCE SALES ASSOCIATE BLEEDING. DECLINED THE USE OF BC METHODS TO CONTROL BLEEDING DUE TO H/O ANXIETY. THEREFORE, DUE TO OUR PRACTICE LMITATION WE HAVE OFFERED REFERRAL TO TIRE TESTER MD FOR FURTHER EVALUATION AND SHE HAS AGREED. ASKING FOR A NONHORMONAL METHOD TO SEE IF BLEEDING CAN BE DECREASED. Anxiety The patient pres ents with anxious/fearful thoughts and excessive worry. The Anxiety is aggravated by lack of sleep and Pandemic. Additional information: Spoke with the online merchandiser id # [id number] via sign language states that pt needs refills for her LORAZEPAM 5mg. However, Lorazepam is not on file. Informed pt that I will verify what medication she takes for her anxiety and will refill the last medication given to her from [facility]. Telemedicine telephone visit consent obtained - verbally identity verified TELEMED CONFIRMEDCON SENT OBTAINEDPAPSMEAR RESULTS DISCUSSED AND ALL QUESTIONS ANSWERED. MORE THAN 20 MINUTES SPEND IN DISCUSSING AND COUSNELING. REPORTS HER US APPT INS 11-11. REPORTS HER LAST MENSES WAS HEAVY WITH BLOOD CLOTS. AGAIN I HAVE DISCUSSED POSSIBLE USE OF BC AND THAT I WOULD BE ABLE TO MAKE BETTER TREATMENT RECOMMENDATIONS ONCE RESULTS OF PELVIC US ARE IN. FOR NOW SHE HAS DECLINED FOR NOW. annual exam (comments) REPORTS V AGINAL BLEEDING STOPPED AND NOW DOES NOT HAVE ANY BLEEDING. NO PELVIC PAIN. HAS APPT FOR PELVIC US 11-11 AT [facility]. ADVICED TO KEEP APPT WITH WILL DISCUSS RESULTS ONCE RECEIVED. USE OF BC METHODS DISCUSSED TO HELP CONTROL HEAVY AND PROLONGED MENSTRUATION. SHE HAS DECLINED FOR NOW. annual exam irregular menstruation COMMINICA TION ACCOMPLISHED BY WRITING. REPORTS MEN[place]HE AT 12-13 YO AND MONTHLY MENSES WITH BLEEDING FOR 7-8 DAYS. HOWEVERE, IN SEPTEMBER 29 SHE STARTED MENSTRUATION AND HAS NOT STOPPED YET. SOME DAYS HEAVY AND SOME DAYS SPOTTING AND LIGHT BLEEDING. STATES TODAY IT SEEMS IF BLEEDING HAS STOPPED. REPORTS MILD DISCOMFORT. NO PAIN TODAY. DECLINED PELVIC EXAM AND OR PAPSEMAR TODAY. BUT AGREED TO SCHEDULE WWE FOR ANOTHER DAY. TELEMED CONFIRMEDCON SENT OBTAINEDREPORTS HAVING IRREGULAR MENSES WITH SPOTTING FOR DAYS AFTER HER MENSES IS COMPLETE. NO PELVIC PAIN, NO VAGINAL DISCHARGE, NO FEVER OR CHILLS. NO DIZZINESS, NO HEADACHES, NO PALPITATIONS. NO OTHER COMPLIANT TODAY. UTI The severity of the problem is moderate. The problem has resolved. The symptoms are constant. Presenting/Initial symptoms include abdominal pain, burning, dysuria and urgency. Symptoms are not associated with diabetes, or recent catheterization. Aggravating factors include urination. Pertinent negatives include abdominal pain, dribbling, dysuria, fatigue, fever, flank pain, frequency, hematuria, hesitancy, nausea, nocturia, pelvic pain, penile discharge, rash, retention or vaginal discharge. Additional information: Appointment for f/u after treatment with Macrobits X 5 days treatment. Telemedicine visit Telephone Vis itConsent obtained - VerballyIdentity verifiedAppointment as a follow up for UTI, patient reported only taking 2 doses of antibiotic, the symptoms resolve but her urine is till cloudy, she was recommended to finish the remaining 4 days.UA results showed Leukocyte sterase + WBC 6-10, AND CULTURE GREW >100.000 Colonies of E.Coli UTI Onset: 1 Week 2 Days. The severity of the problem is moderate. Pain scale: 7/10. The problem has not changed. The symptoms are constant. Presenting/Initial symptoms include burning and dysuria. Aggravating factors include urination. Symptoms are not relieved by increased fluids, OTC analgesics or pain medication. Associated symptoms include dysuria, frequency and urgency. Pertinent negatives include abdominal pain, dribbling, fever, flank pain, hesitancy, nocturia, pelvic pain, penile discharge, pressure, rash, retention, vaginal discharge or vomiting. Telemedicine Encounter using a hearing aid operatorPatient confirmed her identity and consent to telemedicine encounter TELEMED TRANSLATION [facility]AR[facility] AID OPERATORCONSENT OBTAINEDREPORTS HAVNG VAGINAL IRRITATION AND DISCOMFORT AFTER HER MENSES ABOUT 2 WEEKS AGO AND HAD INCREASE REQUENCY OF URINATION. SINCE THEN HAS NOT HAD SYMPTOMS BUT IS CONCERNED. NO URINARY OR VAGINAL SYMPTOMS TODAY. THEREFORE, ADVICED TO HAVE LABS DONE LEW ORDERED AND TO SCHEDULE APPT FOR COMPLETE PELVIC EXAM. PATIENT AGREED AND UNDERSTOOD. Anxiety There is worseni ng of previously reported symptoms. The patient reports functioning as somewhat difficult. The Global Assessment of Functioning Scale (GAF) = 13. The patient presents with compulsive thoughts and difficulty concentrating but denies anxious/fearful thoughts, decreased need for sleep, hallucinations or thoughts of or suicide. The patient's risk factors include social isolation. The patient's risk factors exclude history of suicidal attempts. The Anxiety is aggravated by conflict or stress and social interactions. The patient's relieving factors are medication (Xanax). The patient denies any chronic pain, headache, nausea, sweating, trembling and vomiting. Additional information: Patient has total hearing loss, encounter using a jewelry manager via telemedicine. Telemedicine visit Telephone Vis itConsent obtained-VerballyIdentity Verified f/u anxiety meds (comments) 34 y /o female pmh complete hearing loss. Map Maker used for telemed call. Pt. requests refill of medication for anxiety. States takes Xanax prn. PHQ 9 and MONCHO 7 done today. MONCHO 7 score 13. Pt. with no other concerns complaints today. Telemedicine visit Telephone Vis itConsent obtained-VerballyIdentity Verified f/u anxiety meds Functional Status Date Functional Assessmen t No Information Instructions Date Instruction Additional Infor donta -Counseled on opt ions -SIGECAPS +Ve Denies SI/HI at this time-MONCHO/PHQ9 today: counseling today-STOP Psych meds during -Trial Clonazepam 0.5mg prn panic attack/anxiety from flying. -ED precautions counseled including suicidal ideation-RTC 4 wks for f/u. Related to Generalized Anxiety Disorder Hold meds during pre gnancy. Will RX TUMS for GERD during Discussed dietary modifications: avoid spicy, citrus foods, chocolate, caffeine, tomatoes, large meals.Encouraged small frequent meals throughout the day.F/U for H pylori results + referral to GI pending Return/ER precautions discussed. Related to GERD without esophagitis -Counseled on opt ions -SIGECAPS +Ve Denies SI/HI at this time-MONCHO/PHQ9 today: counseling today-Cont/Increase: -Cont Propranolol 10mg qdaily -Cont Lexapro 5mg qdaily -Trial Clonazepam 0.5mg prn panic attack/anxiety from flying. -ED precautions counseled including suicidal ideation-RTC 4 wks for f/u. Related to Generalized Anxiety Disorder -Counseled on opt ions -SIGECAPS +Ve Denies SI/HI at this time-MONCHO/PHQ9 today: counseling today-Cont/Increase: -Cont Propranolol 10mg qdaily -START TRIAL Lexapro 5mg qdaily -Trial Clonazepam 0.5mg prn panic attack/anxiety from flying. -ED precautions counseled including suicidal ideation-RTC 4 wks for f/u. Related to Generalized Anxiety Disorder -Counseled on opt ions -SIGECAPS +Ve Denies SI/HI at this time-MONCHO/PHQ9 today: counseling today-Cont/Increase: -Cont Propranolol 10mg qdaily -START Zoloft 50mg qdaily -Trial Clonazepam 0.5mg prn panic attack/anxiety from flying. -ED precautions counseled including suicidal ideation-RTC 4 wks for f/u. Related to Generalized Anxiety Disorder -Protonix 40mg qdail y -Patient educated on eating small meals 3-5x a day, and not eating a few hours before bedtime, avoid coffee, spicy food, chocolate, peppermint, inciting food.-Follow up during on RTC review and medication optimization. Related to GERD without esophagitis See #2 Related to Insom luyd, unspecified type Will not refill Alpr azolamProvided patient with forms for urgent care psychiatry Pt already has appointment with Dr. Roach in May scheduled Related to Anxiety Hold Protonix for 2 weeks and then restart after stool test is completed Discussed dietary modifications: avoid spicy, citrus foods, chocolate, caffeine, tomatoes, large meals.Encouraged small frequent meals throughout the day.F/U for H pylori results + referral to GI pending Return/ER precautions discussed. Related to GERD without esophagitis MiraLax PO dailyincr ease fluidsincrease fiberexerciseFU with PCPER peculations Related to Other constipation u-dip today: not c/w UTIdc protonix for h pylori testingDC protonix and start Pepcid after stool sample has been providedDiscussed dietary modifications: avoid spicy, citrus foods, chocolate, caffeine, tomatoes, large meals.Encouraged small frequent meals throughout the day.F/U with pcp for H pylori results + referral to GI if deemed appropriateReturn/ER precautions discussed. Related to GERD without esophagitis FU with as schedu led tomorrow morning Related to Anxiety Labs ordered includi ng repeat urine culture and H pylori testingStart Pepcid after stool sample is providedDiscussed dietary modifications: avoid spicy, citrus foods, chocolate, caffeine, tomatoes, large meals.Encouraged small frequent meals throughout the day.F/U with pcp for resultsReturn/ER precautions discussed. Related to Left upper quadrant pain 1. take meds (omepra zole) as directed 2. use tums as needed 3. small meals, more frequency 4. avoid greasy, citrus, vinegar, spicy foods and all irritants as noted. 5. do not east and lay down; wait at least ne hr before laying down 5. if condition does not improve or worsens to rtc or call us. Related to Heartburn symptom 1. take keflex as re quested and directed 2. hydrate well 3. rtc for urine culture exam in 14 days as directed; lab ordered and scheduled 4. precautions discussed Related to Dysuria Lifestyle education regarding di et Related to Body mass index [BMI] 21.0-21.9, adult . labs orderedf/u for physical R elated to Screening for thyroid disorder . labs orderedf/u for physical R elated to Screening, deficiency anemia, iron . labs orderedf/u for physical R elated to Screening for diabetes mellitus . labs orderedf/u for physical R elated to Screening for cholesterol level . . advised diet/exercise. 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 -Avoid irritative foods high in acidity, spicy foods, caffeinated products, alcohol, chocolate, and mints.-Eat smaller meals. No eating 3 hours prior to bedtime. Elevate head of bed prior to sleep. Sit or stay upright for 1 hour after meals.-Red flag and ER precautions given -RTC prn or sooner for new/worsening symptoms. Related to Heartburn tasked BH Related to Anxie ty . . advised diet/exercise. Relat ed to Dietary counseling and surveillance . PT stable, in NAD, afebrile, non-toxic, no back pain- Take medications as directed: macrobid- Urine sent for cx, will call if med needs to be adjusted- Red Flag and ER precautions given - RTC PRN or if new/worsening sx. Related to Acute UTI labs orderedadvised to push flui ds Related to Nonintractable headache, unspecified chronicity pattern, unspecified headache type continue gas x prndiet given Rel ated to Abdominal bloating 1. adverse reaction to sulfa med 2. advised to stop meds immediately and to hydrate well 3. urine culture send to ensure resolution of uti 4. precautions discussed Related to History of UTI Lifestyle education regarding di et Related to Body mass index [BMI] 21.0-21.9, adult -Refilled Propanolol for anxiety . Related to Medication refill -Discussed urine dip stick with patient -Rx Bactrim DS -Increase fluid intake, cranberry juice-Educate with proper hygienes, practice safe sex and monogamous relationship -ER precautions for fever/chills/flank pain. Gave warning signs re: acute pyelonephritis-Should sx persist, RTC in 1wk for follow-up. Related to Acute UTI 1. reassurance and t o rtc prn 2. I have spoken with [facility]ot and today, patient was evaluated by today and proper referral and recommendations provided as per dept. Related to Gynecologic exam normal 1. to rest and hydra te 2. albuterol inhaler refilled 3. evaluation and consult with behavioral health today 4. risk and precautions regarding premature delivery discussed and all questions answered 5. rtc in 3 wks for pelvic exam and follow up as scheduled. Related to Premature delivered 1. rest and take med s as directed and as needed 2. back rest and icy/hot rub as needed 3. if not improved to follow up with primary care as needed. Related to Acute midline low back pain with sciatica, sciatica laterality unspecified Lifestyle education regarding di et Related to Body mass index [BMI] 20.0-20.9, adult Lifestyle education regarding di et Related to Body mass index [BMI] 20.0-20.9, adult Lifestyle education regarding di et Related to Body mass index [BMI] 19.9 or less, adult Lifestyle education regarding di et Related to Body mass index [BMI] 21.0-21.9, adult - Continue inhaler p rescribed by specialist- Continue f/u with specialist Related to Severe persistent asthma without complication - Referral given to psychiatry R elated to Anxiety - Stop omeprazole, s imethicone, sucralfate- Refilled ferrous sulfate 324mg PO daily Related to Iron deficiency anaemia -Encourage patient t o motivate self in doing things to distract self: exercise, get out to get sunlight, be positive with life, surround self with family and friends for support, eat healthy. -Refilled medication: Propanolol-Increase fluid intake and take vitamins. -Follow up with PCP to discuss other alternatives for Anxiety. -Emphasized to patient possible contributor to chest discomfort is STRESS, GERD, and anger. Related to Encounter for medication refill Lifestyle education regarding di et Related to Body mass index [BMI] 21.0-21.9, adult - Given diet recomme ndations of increasing leafy greens, avoid diets high in saturated fats such as red meat- Exercise prescription of 10 minutes of aerobic exercise every day, increasing to 150 minutes/week as tolerated Related to Mixed hyperlipidemia - CBC rechecked- iron panel chec ked Related to Microcytic anemia - start hydroxyzine 25 mg by mouth 3 times a day when necessary anxiety Related to Anxiety - start Symbicort 16 0mcg 2 puffs BID- continue albuterol rescue inhaler every 4 hours when necessary shortness of breath- chest x-ray ordered- follow-up office visit in 1 week to reassess symptoms, instructed 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 to bring jewelry manager Related to Severe persistent asthma without complication Lifestyle education regarding di et Related to Body mass index [BMI] 21.0-21.9, adult -Medication refill: Albuterol -Use nebulizer with albuterol solution as needed for shortness of breath at home-ER precautions discussed with the patient, to visit ER in case of shortness of breath, chest pain, syncope Related to Mild intermittent asthma with (acute) exacerbation Giving encouragement to exercise Related to Body mass index [BMI] 22.0-22.9, adult Lifestyle education regarding di et Related to Body mass index [BMI] 22.0-22.9, adult 1. use tranexamic ac id as needed and as directed 2. rtc prn Related to Excessive and frequent menstruation with regular cycle 1. TAKE FESO4 ONCE E VERY OTHER DAY DIRECTED ( reports has iron at home) 2. HYDRATE WELL 3. TAKE VIT C CHEEWABLES ORDERED WITH IRON PILL 4. INCREASE FIBER INTAKE 5. DIET CONDUCIVE TO ANEMIA DISCUSSED 6. PRECAUTIONS DISCUSSED. Related to Anemia, unspecified Lifestyle education regarding di et Related to Body mass index [BMI] 22.0-22.9, adult - discussed healthy diet and exe rcise Related to Body mass index (BMI) 23.0-23.9, adult -refilled prescripti on for omeprazole 20 mg daily-Refilled prescription for sucralfate 1 g 4 times a day-Advised continue lifestyle changes for suspected GERD-Referral for GI pending Related to Epigastric pain -advised patient to coordinate with insurance to provide application design engineer for next appointment Related to Deaf-mutism -prescribed venlafax ine 37.5 mg daily-We will reassess medication at next [id number] in 1 month Related to Anxiety Lifestyle education regarding di et Related to Body mass index [BMI] 23.0-23.9, adult referral for GIPt to complete previously ordered h.pylori test Related to Epigastric pain See #3 Related to Mixed hyperlipidemia Discussed diet and exercise RD R elated to Prediabetes Ferrous sulfated yeyo ry other day increase water and fiber intake to avoid constipationrecheck in 3 mo RTC sooner if experiencing symptoms Related to Iron deficiency anemia, unspecified iron deficiency anemia type Vitamin D ass directed Related t o Vitamin D deficiency See #3 Related to Venetia ruddy liver enzymes - Office will try to coordinate with patient's insurance to request application design engineer for next visit in 2 weeks Related to Deaf-mutism Discussed healthy diet and exerc ise Related to Body mass index (BMI) 23.0-23.9, adult - Continue Omeprazol e 20mg daily before a meal- Start Sucralfate 1g four times per day- Ordered CBC, CMP to assess for bleeding status if patient has an ulcer- ER precautions for worsening epigastric pain and symptoms of anemia- Follow up in 2 weeks to review labs Related to Epigastric pain - Resent rx for prop ranolol- Advised behavior health appointment Related to Anxiety Lifestyle education regarding di et Related to Body mass index [BMI] 23.0-23.9, adult Pt had physical but did not complete labs Related to Medication refill To request records f rom previous clinicComplete labs Related to LUQ pain R/o H. pylori. Omepr azole as directed, to start after stool testAvoid spicy, acidic foods, greasy foods or any food that will make your symptoms worst.Raise the head of your bed by 6 to 8 inches ie using a pillowCut down amount of alcohol if you drink.If your a smoker quitAvoid lying down for 3hours after a meal.Lose weight (if you are overweight). Related to Epigastric pain Refill propranolol 10 mg BID Rel ated to Anxiety Difficulty speaking w therapist, because some times the jewelry manager has a had time translating per pt and . Also hard to create a funez with patient when it is through the therapist. Related to Anxiety Lifestyle education regarding di et Related to Body mass index [BMI] 23.0-23.9, adult recommended to stop smokingAvoid meals couple trigger acid reflux-like sauces, caffeine, spicy food trial with omeprazole 20 mg for 2 weeks, once daily Related to Chronic GERD continue using Flove nt 2 puffs per dayContinue using albuterol as a rescueUse nebulizer with albuterol solution as needed for shortness of breathER precautions discussed with the patient, to visit ER in case of shortness of breath, chest pain, syncope Related to Mild intermittent asthma with (acute) exacerbation start Flovent inhale r twice daily for 2 weeksRecommended to continue albuterol HFA as needed for rescue every 4 hoursFollow-up in 2 weeks Related to Mild intermittent asthma with (acute) exacerbation Lifestyle education regarding di et Related to Body mass index [BMI] 24.0-24.9, adult Giving encouragement to exercise Related to Body mass index [BMI] 25.0-25.9, adult Lifestyle education regarding di et Related to Body mass index [BMI] 25.0-25.9, adult follow-up on office visit for prescription of alprazolam 0.5 as needed for rescueFollow-up on referral for psychiatry, list of the phone numbers for her insurance has been mailed to the patient, due to her insurance she needs to call and make the appointmentfollow-up with behavioral health patient was counseled about the importance of getting a psychiatry appointment to optimize treatment, due that she cannot depend on a benzodiazepine due to the risk of tolerance. Related to Anxiety Continue BRAT diet C ontinue short course of pepto bismol for GI symptoms Improvement of anxiety Related to Abdominal pain, unspecified abdominal location Referral to Refer ral to Psychiatry to improve treatment for anxiety Patient needs new [id number] propranolol 10 mg BID Related to Anxiety 1. NAME AND NUMBER T O TIRE TESTER MD RFERRED PORVIDED AND PATIENT IS TO CALL REGARDING ANY FOLLOW UP EXAM NEEDED 2. TO CALL US IF ANY QUESTIONS ARISE OR RTC PRN Related to Breakthrough bleeding 1. RESOLVED 2. REASS URANCE 3. FOLLOW UP WITH TIRE TESTER MD REFERRED. 4. PRECAUTIONS DISCUSSED Related to Breakthrough bleeding Due to the pandemic- people are having worsening sx of Anxiety.Unable to run CURES report, nothing is showing up on file.Also had KIRSTIN RUIZ help me and the pharmacist from [facility] but nothing on file.Called in Alprazolam 0.5mg once daily as needed for Anxiety #30, no refills Related to Anxiety 1. IMPROVED WITH TRA NEXAMIC ACID 2. REFILL ORDERED REQUESTED 3. TO FOLLOW UP WITH TIRE TESTER MD REFERRED. Related to Excessive and frequent menstruation with regular cycle Lifestyle education regarding di et Related to Body mass index [BMI] 25.0-25.9, adult 1.USE TRANEXAMIC ACI D DIRECTED 2. REFERRAL TO TIRE TESTER MD ORDERED 3. ED PRECAUTIONS DISCUSSED. Related to Excessive and frequent menstruation Spoke with [facility]- pt i s taking Lexapro 5mg#30 refill; 3continue current meds, call clinic if anxiety gets worst Related to Anxiety 1. COMPLETE TVUS ORDERED AND WILL DISCUSS RESULTS ONCE RECEVIED AND WILL DISCUSS TREATMENT OPTIONS. 2. FOLLOW UP WITH PCP NEEDED, APPT SCHEDULED TOMORROW. 2. PRECAUTIONS DISCUSSED Related to Irregular menses 1. RESOLVED AT THIS POINT 2. DECLINED USE OF MEDS TO CONTROL MENSES, THEREEFORE, COUNSELED AND ADVICED AND PRECAUTIONS DISCUSSED Related to Excessive and frequent menstruation with regular cycle 1. Diet and Exercise . 2. SBE. 3. RTC prn Related to Well woman exam Lifestyle education regarding di et Related to Body mass index (BMI) 25.0-25.9, adult 1. LABS ORDERED AND TVUS ORDERED 2. RTC FOR WWE AND PELVIC EXAM SCHEDULED 3. ED PRECAUTIONS DISCUSSED. Related to Excessive and frequent menstruation with regular cycle Lifestyle education regarding di et Related to Body mass index (BMI) 25.0-25.9, adult 1. RTC SCHEDULED THIS WEEK FOR WWC AND COMPREHENSIVE EVALAUTION AND TO DISCUSS TREATMENT PLAN. PATIENT AGREED AND APPT SCHEDULED. Related to Irregular menses -Finish 4 days of ma crobits as prescribed 100 mg BID x 4 days -Patient refuse to get an appointment for follow up-Was recommended to drink abundant water, including cranberry juice Related to UTI (urinary tract infection), uncomplicated -Urinalysis with ref lyudmila culture Chlamydia /Gonorrhea in Urine test -Macrobid 100 mg BID for 5 days -Pyridium 100 mg TID for 2 days -F/U in one week or before is symptoms worsen Related to UTI (urinary tract infection), uncomplicated 1. LABS INCLUDING UR INE CULTURE ORDERED TO BE LEW, PATIENT STATES WILL COME TOMORROW 2. IF PAIN OR FEVER OR CHILLS COME TO CLINIC FOR EVALUATION OR GO TO ED 3. OTHERWISE RTC FOR COMPLETE PELVIC EXAM SCHEDULED. Related to Urinary frequency Stop ZoloftStart a t rial with Lexapro 5 mg daily If medication is well-tolerated we can consider to increase dose to 10 mg dailyUse hydroxyzine 10 mg p.o. as rescue acute 8 hours as needed for anxietyFollow-up with patient in 2 weeks Or before if symptoms worsen Related to Anxiety -Counseled on opt ions will refer to today -MONCHO/PHQ9 today -PhQ9: 2GAD7: 13-ED precautions counseled including suicidal ideation-Start: Zoloft 25mg qdaily -RTC 2 wks for f/u medication toleration. Related to Anxiety -Counseled on Social Distancing and safe practices during Pandemic.-Counseled on appropriate hand washing and hygiene. -Counseled on limits on non-essential travel-Counseled on immediately contacting clinic for evaluation onset of symptoms for evaluation. Related to Educated about COVID-19 virus infection Assessments Type Assessment Date assessment First trimester assessment Encounter for gyneco logical examination (general) (routine) without abnormal findings assessment Encounter for screening for card iovascular disorders Mental Status Date Cognitive Assessment Orientation - [place] ed to time, place, person, situation. Patient Care Teams Name Effective Dates (start - stop) Status Members No Information
--- OUTSIDE RECORDS SUMMARY | 2024-04-01 23:12 | XMS_ITS | Clinical Summary ---
Author Organization [facility] Address [address] [place] [address] Care Team Providers Care Director Of Fundraising Name Role Phone Unavailable Primary Care Provider Unavailabl e Source Comments Patient records contain information from all sites at [facility]. For routine questions regarding patient records, call [phone] during business hours, M-F 8:00 AM - 5:00 PM Central Time. 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 Gender Identity Not on file Sexual Orientation Not on file Plan of Treatment Health Maintenance Due Date Last Done Comments Cervical/Vaginal Cancer Screening 1987 HIV Screening 1987 Hepatitis C Screening 1987 Lipid (Cholesterol) Screening 1987 Hepatitis B Vaccines (1 of 3 - 19+ 3-dose series) 2006 COVID-19 Vaccine (2023-2 5 season) 2023 Influenza Vaccine (#1) 2023 03/26/2019 Depression Screening (Annual PHQ-2) 02/14/2024 DTaP,Tdap,and Td Vaccines (2 - Td or Tdap) 05/17/2033 05/18/2023 HPV Vaccines Aged Out No longer eligi ble based on patient's age to complete this topic IPV Vaccines Aged Out No longer eligi ble based on patient's age to complete this topic Pneumococcal vaccine (0-49 years) Aged Out No longer eligible based on patient's age to complete this topic Insurance [facility] [place] [id number]
--- OUTSIDE RECORDS SUMMARY | 2024-04-01 23:12 | XMS_ITS | Clinical Summary ---
Author Organization [facility] Address [address] [place] [address] Care Team Providers Care Cushion Stuffer Name Role Phone No Primary/Referring, Phy Primary Care Provider Unavailable Source Comments You are receiving this document as you are listed as the primary care provider,follow-up provider, or the patient has been referred to you for consultation.This is in compliance with the Medicare and[facility] EHR Incentive Program,which states Providers who transition their patient to another setting of careor provider of care or refers their patient to another provider of care shouldprovide summary care record for each transition of care or referral. [facility] Allergies Active Allergy Reactions Criticality Noted Date Comments Aspirin Hives High 12/14/2017 Ibuprofen Itching,Breathing Difficulty High 10/19/2016 Morphine Other, see comments 04/27/2016 Peppermint Flavoring Agent (Non-Screening) Other, see comments Medium 03/31/2017 Heartburn Medications * This document contains information received from the source organization and may not represent a complete record from that organization. propranolol (INDERAL) 10 MG tablet TAKE 1 TABLET BY MOUTH EVERY DAY NEEDED 90 Tablet 07/16/2018 Active Active Problems Problem Noted Date Diagnosed Date Bilateral deafness 12/27/2017 History of heartburn 03/08/2017 Anxiety 05/10/2016 Social History Tobacco Use Types Packs/Day Years Used Date Smoking Tobacco: Never Smokeless Tobacco: Never Alcohol Use Standard Drinks/Week Comments Not Currently 0 (1 standard drink = 0.6 oz pur e alcohol) AUDIT-C Answer Date Recorded Frequency of Alcohol Consumption Never 06/09/2018 Average Number of Drinks Not on file 019 Frequency of Binge Drinking Not on file 05/15 Comments Unknown Sex and Gender Information Value Date Recorded Sex Assigned at Not on file Legal Sex Female 12:00 PM CDT Gender Identity Not on file Sexual Orientation Not on file Last Filed Vital Signs Vital Sign Reading Time Taken Comments Blood Pressure 106/69 01/24/2018 4:09 PM WEB PRESSMAN Pulse 66 01/24/2018 4:09 PM WEB PRESSMAN Temperature 36.9 C (98.5 F) 12/22/2017 6:56 PM WEB PRESSMAN Respiratory Rate - - Oxygen Saturation 98% 12/14/2017 6:37 PM CDT Inhaled Oxygen Concentration - - Weight 54.9 kg (121 lb) 01/24/2018 4:09 PM WEB PRESSMAN Height - - Body Mass Index - - Plan of Treatment Health Maintenance Due Date Last Done Comments Cervical Cancer Screening Due 1987 Hep C Screening (Preventive Services) 1987 HIV Screening (Preventive Services) 2003 Adult Preventive Visit 2005 DTaP/Tdap/Td (1 - Tdap) 2006 HepB (1) 2006 COVID-19 Vaccine ( - 2023-2 5 season) 2023 Influenza (#1) 2023 Zoster/Shingles (1 of 2) 2037 HPV Vaccine Aged Out No longer eligi ble based on patient's age to complete this topic HepA Aged Out No longer eligi ble based on patient's age to complete this topic Hib Aged Out No longer eligi ble based on patient's age to complete this topic IPV (Polio) Aged Out No longer eligi ble based on patient's age to complete this topic MCV4 Aged Out No longer eligi ble based on patient's age to complete this topic Meningococcal B Aged Out No longer el igible based on patient's age to complete this topic Pneumococcal Aged Out No longer eligi ble based on patient's age to complete this topic Care Teams Cushion Stuffer Relationship Specialty Start Date End Date No Primary/Referring, Phy PCP - General 12/13/17
--- OUTSIDE RECORDS SUMMARY | 2024-04-01 23:12 | XMS_ITS | Clinical Summary ---
Author Organization [place] Address [address] [place] [id number] Care Team Providers Care Spot Welder Name Role Phone Unavailable Primary Care Provider Unavailabl e Allergies Active Allergy Reactions Criticality Noted Date Comments Aspirin Hives High 12/14/2017 Fluoxetine 11/27/2017 Other reaction(s): Dizziness Ibuprofen Difficulty breathing,Itching High 10/19/2016 Other reaction(s): Dizziness Morphine Other (See Comments) 04/27/2016 Peppermint Flavoring Agent (Non-Screening) Other (See Comments) Medium 03/31/2017 Heartburn Heartburn Medications LORazepam (ATIVAN) 1 MG tabletIndicatio ns:MONCHO (generalized anxiety disorder) Take 1 tablet (1 mg) by mouth daily as needed for anxiety (.) 30 tablet 9 Active Additional Information Patient not taking.Reported on 10/01/2018 propranolol (INDERAL) 10 MG tabletIndicatio ns:MONCHO (generalized anxiety disorder) TAKE 1 TABLET BY MOUTH TWICE A DAY 60 tablet 0 Active Active Problems Problem Noted Date Diagnosed Date MONCHO (generalized anxiety disorder) 08/09/2018 Deafness Family History Medical History Relation Comments Eye Surgery Other Glaucoma No family hx of Macular Degeneration No family hx of Relation Status Comments Other Social History Tobacco Use Types Packs/Day Years Used Date Smoking Tobacco: Never Smokeless Tobacco: Never Alcohol Use Standard Drinks/Week Comments No 0 (1 standard drink = 0.6 oz pur e alcohol) AUDIT-C Answer Date Recorded Frequency of Alcohol Consumption Never 04/18/2018 Average Number of Drinks Not on file 019 Frequency of Binge Drinking Not on file 07/2018 Adolescent Education Answer Date Record ed Getting School Help Needed Not on file 11/04 Comments No Sex and Gender Information Value Date Recorded Sex Assigned at Not on file Legal Sex 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
--- OUTSIDE RECORDS SUMMARY | 2024-04-01 23:12 | XMS_ITS | Clinical Summary ---
Author Organization [facility] Address [place], [place] [address] Care Team Providers Care District Court Reporter Name Role Phone Rachel Calderon MD Unavailable [phone] Мария Higginbotham MD Unavailable [phone] Yoana Hdez NP Primary Care Provider Allergies Active Allergy Reactions Criticality Noted Date Comments Aspirin Hives,Dyspnea,Itchin g High 05/10/2016 Fluoxetine Dizziness 11/27/2017 Ibuprofen Dizziness,Dyspnea,It sherlyn,Rash High 04/30/2014 Other reaction(s): Dizziness Morphine Other - Describe In Comment Field 04/27/2016 Peppermint Flavor Other - Describe In Comment Field Medium 03/31/2017 Heartburn Sulfa (Sulfonamide Antibiotics) Rash 12/18/2023 Diazepam Dizziness Low 08/08/2023 Medications acetaminophen (TYLENOL EXTRA STRGTH) 500 mg tabletIndication s:History of classical section Take 2 Tablets (1,000 mg) by mouth every 6 hours. Max acetaminophen dose: 4000mg in 24 hrs. 50 Tablet 4 9:19 AM CDT 07/16/19 24 Active hydrocortisone 2.5 % ointmentIndicati ons:Itchy skin Apply topically to affected area(s) two times daily. 20 g 1 09/12/19 24 Active albuterol HFA (PRO-AIR; VENTOLIN; PROVENTIL) 90 mcg/actuation inhalerIndicatio ns:Mild persistent asthma with exacerbation Inhale 1 Puff by mouth every 4 hours while awake. 18 Each 2 10/23/19 24 Active famotidine (PEPCID) 20 mg tabletIndication s:Chronic GERD Take 1 Tablet (20 mg) by mouth two times daily. as needed 60 Tablet 3 10/23/19 24 Active Additional Information Patient not taking.Reported on 03/11/2024 Salicylic Acid 2 % topical creamIndications :Strain of right biceps tendon Apply topically to affected area(s) three times daily. 59 g 11/24/19 24 Active diphenhydrAMINE- zinc acetate, 2%-0.1%, (Benadryl Extra Strength) 2%-0.1% creamIndications :Strain of right biceps tendon Apply topically to affected area(s) 3 times daily if needed (pain). 28 g 1 11/24/19 24 Active methyl salicylate/menth ol (BENGAY TOP) Apply topically to affected area(s). Active propranoloL (INDERAL) 10 mg tabletIndication s:Trauma and stressor-related disorder,General ized anxiety disorder,Claustr ophobia Take 1 tablet (10 mg) 3 times daily. May also take 1 tablet if needed twice daily for high anxiety. Wait 1 hour between doses 360 Tablet 3 03/11/19 25 Active propranoloL (INDERAL) 10 mg tabletIndication s:Severe anxiety Take 1 tablet (10 mg) 3 times daily. May also take 1 tablet if needed twice daily for high anxiety. Wait 1 hour between doses. Further refills will be prescribed during an appointment 120 Tablet 2 10/23/19 24 025 Discontin ued(*Medi cation adjustmen t) Active Problems Problem Noted Date Diagnosed Date Claustrophobia 03/11/2024 Major depressive disorder, recurrent, moderate 0 03/11/2024 Testosterone insufficiency 11/29/2023 ASCUS of cervix with negative high risk HPV /02/2023 Overview (09/14/2023): 08/2023 ASCUS/HPV negative Plan: HPV based testing in 3 years CRP elevated 08/25/2023 Mild persistent asthma with exacerbation 024 Anemia 06/30/2023 Generalized anxiety disorder 05/18/2023 Trauma and stressor-related disorder 05/18/2023 History of classical section 04/17/2023 Overview (06/16/2023): Normal appearing POSTERIOR placenta in current (MPP Level II 03/20/23) History of loss in prior , currently in third trimester 02/20/2023 Deafness 02/20/2023 Resolved Problems Problem Noted Date Diagnosed Date Resolved Date Uterine scar from previous c esarean delivery, antepartum complication 06/16/2023 08/23/2023 Overview (06/16/2023): Prior Classical C/S (2018) Low weight gain during pregn wanda in third trimester 03/20/2023 08/23/2023 History of delivery, currently in third trimester 02/20/2023 08/23/2023 Multigravida of advanced mat ernal age in third trimester 02/20/2023 08/23/2023 MPP, Supervision of high-risk 02/14/2023 07/13/2023 Overview (07/05/2023): Jerica Graffnice Ute : 1985 Jerica HUGGINS OB Patient MPP CONSULT ON 02/20/23 Support person name: John Help Desk Intern: Yes - ASL ULTRASOUND TYPE: REASON FOR VISIT: Hx classical C/S, hearing impaired, anxiety, PTSD NEXT VISIT ALERTS: Did she bring her blood sugar log? Last visit before delivery! LB scheduled two iron infusions at [facility] before delivery date. The supervising provider at the infusion center is Leyda Huynh APRN, TRAIN DRIVER. She will call back when this pt is scheduled for her infusions. Final BIBIANA by Early Ultrasound LMP Date: No LMP recorded. BIBIANA: Early US: Date: 01/11/23 GA: 10w0d BIBIANA: 08/09/23 PrePregnancy Weight: 98 lb Height: 63 BMI: 17.4 PLANS & FUTURE APPOINTMENTS: ULTRASOUND PLAN: GROWTH PLAN: No further ultrasounds - Next TESTING PLAN: None - Testing through: DELIVERY PLAN: Rpt C/S - Scheduled delivery: C 07/13/23 0930 @ [facility] PRIMARY DIAGNOSIS: 38 y.o. . Estimated Date of Delivery: 08/09/23 MATERNAL 2018 25w5d Classical C/S; PROM, cord prolapse 2021 22w PTD, NND Failed 1 hr GTT - reports home blood sugar checks WNL BMI 17 Hearing impaired Anxiety, PTSD AMA PREVIOUS ULTRASOUNDS: 05/18/23 28w1d EFW 1217 grams, percentile: 47. 04/17/23 23w5d CL 4cm without evidence of funneling 03/20/23 19w5d EFW 330 grams, percentile: 62. The transabdominal cervical length is 3.3 cm. 02/20/23 15w5d EFW 135 grams, percentile: 45 01/11/23 10w0d BIBIANA: 08/09/23 ECHO: REFERRING PHYSICIAN/PHONE/LAST UPDATE: Rachel Calderon MD Primary MD approves scheduling of recommended ultrasounds/testing: Not specified SPECIALISTS/CONSULTS: Include: Specialty MD Clinic Name Phone# [place] and ADDED TO PATIENT CARE TEAM Мария Higginbotham MD Psychiatry [facility] 04/2023 [place] 05/2023 GENETICS: none SARAH signed for [facility]: MATERNAL CARE COORDINATION: CARE COORDINATION: GRAPPLER: ROUTINE OB: Flu vaccine: declined COVID-19 vaccine: Date(s) given: 03/21/20, 02/09/21 Tdap vaccine: given: 05/18/23 COMPASS: Completed YES Date: 06/02/23 ANXIETY/DEPRESSION SCREEN: Initial screen: Date: 05/18/23 GA: 28w1d PHQ-9 score: 8 MONCHO-7 score: 10 Previous history of anxiety or depression? YES ROUTINE LABS: Blood type: B positive Antibody: Negative Last pap: Gestational Diabetes screenin05/18/23 = 164 - Checking BS vs GTT Treponema Pallidum drawn:: 05/18/23 = NR GBS: 06/30/23 Negative Hemoglobin: 05/18/23 = 10.7 06/30/23-9.8 ADDITIONAL PERTINENT LABS: Non-[facility] labs need to be entered in EPIC- NA UTI - 02/16/23 UC + for e coli / 03/22/22 [facility]EB + e.coli, 05/18/23 NO GROWTH PPTL& DELIVERY SCHEDULING: Do COVID testing as needed with in 3-5 days of delivery H&P needed 30 days before delivery Date: PPTL: No CHECKLIST FOR SCHEDULING PROCEDURES: [facility]: Call (counter weigher) for all scheduling Procedure: C/ Hospital: [facility] Unit: L&D Date & Time of procedure: 07/13/23 0930 Pertinent information: Hx of 25w5d Classical C/S; PROM, cord prolapse, hx of 22 wk PTD, NND, needs ASL interp Gestational age on procedure date? 36w1d MD doing procedure: Jos Date scheduled: 05/18/2023 when patient was 28w1d. Scheduling MD & RN: Jalen Notifications: Hospitalist Delivery-OBH online merchandising coordinator notified through Command Information inbox? Yes [facility] MD online merchandising coordinator notified via Command Information inbox? Yes Primary MD notified via Command Information inbox? Not Applicable Primary MD clinic called if not Storm? Not Applicable On [facility] calendar? Yes Surgical Prior Authorization completed? Yes Care Coordination notified? Not Applicable H&P/PPTL: PPTL permit signed? No H&P and Plan in chart? No [facility] appointment made for H&P with MANAGER MECHANICAL MAINTENANCE within 30 days of procedure? No Date: Hibiclens Education given? No Hibiclens supplied to patient? No Patient notification: Patient notified of procedure date? Written admission instructions given to patient via AVS? PERTINENT MEDS: Progesterone - declines Cymbalta - started 05/17 propranolol 10 mg daily as needed for anxiety PROCEDURES: PLAN OF CARE: 06/29 per ND Plan: OB Care - OB checks every 2 weeks from 28-34 weeks, then weekly until delivery - labor and preeclampsia precautions reviewed - Call if regular contractions, leaking of fluid, vaginal bleeding, or decreased movement - Okay to continue regular physical activity Ultrasound/Testing - L2 done with [facility] 02/20/23 - Growth ultrasound done 05/17. No further indicated. - testing not indicated at this time Labs - Initial labs GCT & treponema collected 05/18/23 - Failed 1hr GCT, will try to picking supervisor supplies today to check blood sugars four times daily x2 weeks. Blood sugar checks wnl per patient report on 06/15. She plans to email them after visit on 06/29 - Baseline preeclampsia labs not indicated - GC/Chl done 06/29 - GBS & Hgb done 06/29 Meds - vitamins - PCN for dental infection, encouraged her to complete the course of Abx - Duloxetine 20mg daily (restarted from visit with Psych 04/27/23 then stopped shortly after starting), - Amoxicillin for tooth infection started 06/28 - Pepcid 40mg daily prn - Tdap 05/18/23 - Influenza vaccine declined - COVID-19 vaccine received in 2020, booster declined Screening - PHQ/MONCHO Scores 8/10 respectively - Psychiatry Consult 04/26 (Мария Higginbotham), 05/31, next 06/21 (notified her of this appointment date/time) - Follows with [facility] for therapy - Start Duloxetine 20mg daily (declined to start until ) Consults - Weight management referral n/a - Sleep medicine referral n/a Delivery - Patient should expect repeat section at 36-37 weeks d/t prior classical hysterotomy - Repeat section scheduled 07/13/[address] Uma Arguello, [facility] - Tubal sterilization declined - Plans breast and bottle feeding - Start duloxetine 20mg daily (does not want to start prenatally) Encounters Date Type Department Care Team Description 03/11/2024 1:30 PM ATTACHER Office Visit [facility] [address] [place] [address] Peyman De La Rosa MD Medication Management 03/11/2024 Travel 01/19/2024 Telephone [facility] [address] [place] [address] Peyman De La Rosa MD Error-please disregard (error) from Last 3 Months Immunizations Name Administration Dates Next Due Influenza, IIV4 (=>6mos) MDV 03/26/2019 Tdap 05/18/2023 Family History Medical History Relation Name Comments Drug Abuse Father Psychiatric illness Father Suicidality Father Relation Name Status Comments Father Social History Tobacco Use Types Packs/Day Years Used Date Smoking Tobacco: Never Passive Smoke Exposure: Never Smokeless Tobacco: Never Tobacco Cessation:Counseling Given: Not Answered Alcohol Use Standard Drinks/Week Comments Not Currently 0 (1 standard drink = 0.6 oz pure alcohol) Most she ever drank at a time was one drink, every few years PHQ-2 Answer Date Recorded PHQ-2 TOTAL SCORE 2 03/11/2024 Social Connections Answer Date Recorded Do you often feel lonely or isolated from those around you? 0 07/13/2023 Financial Resource Strain Answer Date R ecorded Difficulty of Paying Living Expenses 3 07/13/2023 Difficulty of Paying Living Expenses Not on file 07/13/2023 Food Insecurity Answer Date Recorded Do you worry your food will run out before you are able to buy more? 1 07/13/2023 Transportation Needs Answer Date Record ed Does lack of transportation keep you from medica l appointments? 1 07/13/2023 Does lack of transportation keep you from work, meetings or getting things that you need? 1 07/13/2023 Housing Stability Answer Date Recorded What is your housing situation today? 1 07/13/2023 Interpersonal Safety Answer Date Record ed Are you being hit, kicked, p ushed or yelled at (see row info)? No 08/25/2023 Interpersonal Safety Abuse 12 - 18 Not on file 08/25/2023 Interpersonal Safety Ambulatory Vulnerability No t on file 08/25/2023 Utilities Answer Date Recorded Do you have trouble paying f or utilities (for example, heat, electricity, water, phone)? 1 07/13/2023 Comments No Sex and Gender Information Value Date Recorded Sex Assigned at Not on file Legal Sex Female 7:13 PM CDT Gender Identity Not on file Sexual Orientation Not on file Obstetrics History Para Term AB IAB SAB Ectopic Multiple Livin g Live Births 3 3 3 0 2 3 Date Outcome GA Total Labor Labor/2nd/3rd Weight Sex Type Anes PTL Pily A1 A5 Name Clin 2017 25w 0d 0.79 kg (1 lb 12 oz) M CS-Un spec Livin g Complications:Vaginal bleedi ng in , second trimester Delivery Location:[facility] Comments:vaginal bleed ing 2021 22w 0d F Vag Decea sed Delivery Location:[facility] 2023 36w 1d 0h 01m 0h 01m 2.36 kg (5 lb 3.3 oz) M C-Sec tion Gener al,Sp inal Livin g 5 7 Bb Jerica Olvera on Knoedl er, Sulema Jalloh MD Complications:Anesthetic Com plications Delivery Location:Hospital ( UTD 1999 MB L&D TRIAGE) Last Filed Vital Signs Vital Sign Reading Time Taken Comments Blood Pressure 120/60 03/11/2024 1:46 PM ATTACHER Pulse 62 11/24/2023 1:31 PM CDT Temperature 36.8 C (98.3 F) 08/25/2023 4:24 PM CDT Respiratory Rate 16 08/25/2023 6:58 PM CDT Oxygen Saturation 99% 11/24/2023 1:31 PM CDT Inhaled Oxygen Concentration - - Weight 44.5 kg (98 lb) 03/11/2024 1:46 PM ATTACHER Height 152.4 cm (5') 08/25/2023 4:24 PM CDT Body Mass Index 19.14 08/25/2023 4:24 PM CDT Plan of Treatment Upcoming Encounters Date Type Department Care Team (Late st Contact Info) Description 05/13/2024 1:30 PM CDT Office Visit [facility] [address] [place] [address] Peyman De La Rosa MD [address] [place] [address] Scheduled Procedures Name Priority Associated Diagnoses Date/Ti me SURGICAL PROCEDURE (TYPE PRO CEDURE DESCRIPTION BELOW) History of classical section Health Maintenance Due Date Last Done Comments Hepatitis C screening for age 18-79 2005 COVID-19 vaccine series (2023- season) 2023 Influenza for age 9-49 10/15/2023 03/26/2019 BMI (ht and wt on same day) for age 18+ 05/14/2024 05/15/2023 Depression screening for age 12+ 03/11/2025 03/11/2024, 12/18/2023, 10/23/2023, Additional history exists Pap test for age 21-65 09/05/2026 09/06/2023, 2023 Tetanus booster 05/17/2033 05/18/2023 HIV for age 15-65 Completed 05/18/2023 Tdap Completed 05/18/2023 Pneumococcal series for age 6-49 Aged Out No longer eligible based on patient's age to complete this topic Procedures Procedure Name Priority Date/Time Associated Diagnosis Comments CERTIFIED SURGICAL ASSISTANT THIN PREP PAP SCREEN IMAGED Routine 09/06/2023 12:44 PM CDT Pap smear for cervical cancer screening ANTI HIV 1/2 Today 05/18/2023 2:10 PM CDT from Last 3 Months or Most Recently Relevant to Health Maintenance Results * (ABNORMAL) CERTIFIED SURGICAL ASSISTANT THIN PREP PAP SCREEN IMAGED (09/06/2023 12:44 PM CDT) Case Report Gynecologic Cytology Report Case: [id number] Authorizing Provider: Colby Reid MD Collected: 09/06/2023 1244 [facility] Received: 09/06/2023 1245 Clinic First Screen: Baclidia Minie Pathologist: Akila Mishra MD Specimen: CERTIFIED SURGICAL ASSISTANT ThinPrep Vial Screening, Cervical 09/14/2023 9:16 AM CDT [facility] INTERPRETATION/ RESULT ATYPICAL SQUAMOUS CELLS OF UNDETERMINED SIGNIFICANCE (ASCUS)(A) (none) 09/14/2023 9:16 AM CDT [facility] IMEN ADEQUACY Satisfactory for evaluation No endocervical component seen 09/14/2023 9:16 AM CDT [facility] HPV REQUEST HPV and PAP 09/14/2023 9:16 AM CDT [facility] Date of LMP unknown 09/14/2023 9:16 AM CDT [facility] Last Pap Date unknown 09/14/2023 9:16 AM CDT [facility] Last Pap Result First Pap/Unknown 09/14/2023 9:16 AM CDT [facility] Abnormal Pap or [place] Bx in last 5 years No 09/14/2023 9:16 AM CDT [facility] Menstrual Status 09/14/2023 9:16 AM CDT [facility] [place] Bx Done Today No 09/14/2023 9:16 AM CDT [facility] Additional Information None given 09/14/2023 9:16 AM CDT [facility] Comment: Cytology is screened at [facility] - [address], [place] [address] and [facility] - [address], [place] [address] and [facility] - [address] [place] [address] Interpreted at [facility] - [address], [place] [address] Automated Review Successful 09/14/2023 9:16 AM CDT [facility] Comment:Specimen processed s uccessfully by automated 2nd grade teacher device, ThinPrep Imaging System, [employer] ANCILLARY TESTING CERTIFIED SURGICAL ASSISTANT HPV Ordered, Please see separate report 09/14/2023 9:16 AM CDT [facility] Note The pap test is a screening technique, not a diagnostic procedure. It is used primarily to screen for squamous cancers and precursor lesions. Published studies have shown that it is subject to both false negative and false positive results. The pap test should not be used as the sole means to diagnose or exclude pre-malignant and malignant lesions. 09/14/2023 9:16 AM CDT [facility] Other (Cervical) Non-Blood / Unknown 09/06/2023 12:44 PM CDT 09/06/2023 12:45 PM CDT us Colby Reid MD PATHOLOGY/CYTOLOGY Final Result [facility] [address] [place] [address], [place] * Anti HIV1/2 (05/18/2023 2:10 PM CDT) HIV-1/HIV-2 SCREEN Non-Reacti ve Non-Reacti ve 05/18/2023 10:42 PM CDT [facility] Comment:HIV-1 p24 and HIV-1/ HIV-2 Ab Not Detected. Blood BLOOD SPECIMEN / Unknown Non-Lab Venipuncture / Unknown 05/18/2023 2:10 PM CDT 05/18/2023 2:47 PM CDT us Rebeca Holley MANAGER MECHANICAL MAINTENANCE SEND OUTS Final Res ult [facility] [address] [place] [address], [place] from Last 3 Months or Most Recently Relevant to Health Maintenance Insurance BL[employer]VANTAGE [facility] Advance Directives * Full Code (Latest Code Status on File) Date Activated Date Inactivated Comments 07/13/2023 10:39 AM 07/16/2023 3:22 PM Question Answer Comments Code Status Discussion: Reviewed Preferences Care Teams District Court Reporter Relationship Specialty Start Date End Date Yoana Hdez NP [address] [facility] [place] [address] PCP - General Nurse Practitioner - Family 08/30/23 Rachel Calderon MD [address] [facility] [place] [address] Family Practice 02/14/23 Маряи Higginbotham MD [address] [place] [address] Psychiatry 06/01/23
--- OUTSIDE RECORDS SUMMARY | 2024-04-01 23:12 | XMS_ITS | Continuity of Care Document ---
Author Organization [facility] Address [address] [place] [address] Phone Care Team Providers Care Vp Of Global Marketing Name Role Phone [facility] Unavailable Unavailable Procedures Procedure Date Other Specified Case Mgmt Other Specified Case Mgmt Other Specified Case Mgmt Other Specified Case Mgmt Other Specified Case Mgmt Other Specified Case Mgmt Other Specified Case Mgmt Other Specified Case Mgmt Other Specified Case Mgmt Other Specified Case Mgmt Other Specified Case Mgmt Mccd,phys coor-care ovrsght Other Specified Case Mgmt Other Specified Case Mgmt Mccd,phys coor-care ovrsght Mccd,phys coor-care ovrsght Other Specified Case Mgmt Other Specified Case Mgmt Advance Directives Directive Yes / No Effective Date File Name No Information Encounters Encounter Description Practice Location Reason(s) For Visit Diagnoses Date Provider Providers Copied on Encounter [facility], [address], [place], [place], [id number], [place] tel:[phone] [facility] No Information [facility]. [address], [address], [place], [place], [id number], [place]. [facility], [address], [place], [place], [address], [place] tel:[phone] [facility] No Information [facility]. [address], [place], [id number], [place]. [facility], [address], [place], [address], [place] tel:[phone] [facility] No Information [facility]. [address], [place], [place], [address], [place]. tel:[phone] [facility], [address], [place], [place], [address], [place] tel:[phone] [facility] No Information [facility]. [address], [place], [place], [address], [place]. tel:[phone] [facility], [address], [place], [place], [address], [place] tel:[phone] [facility] No Information [facility]. [address], [place], [place], [address], [place]. tel:[phone] [facility], [address], [place], [place], [address], [place] tel:[phone] [facility] No Information [facility]. [address], [place], [place], [address], [place]. tel:[phone] [facility], [address], [place], [place], [address], [place] tel:[phone] [facility] No Information [facility] [place]. [address], [place], [place], [address], [place]. tel:[phone] [facility], [address], [place], [address], [place] tel:[phone] [facility] No Information [facility]. [address], [place], [address], [place]. tel:[phone] [facility], [address], [place], [address], [place] tel:[phone] [facility] No Information [facility]. [address], [place], [address], [place]. tel:[phone] [facility], [address], [place], [address], [place] tel:[phone] [facility] No Information [facility]. [address], [place], [address], [place]. [facility], [address], [place], [address], [place] tel:[phone] [facility] No Information [facility]. [address], [place], [place], [address], [place]. tel:[phone] [facility], [address], [place], [address], [place] tel:[phone] [facility] No Information [facility]. [address], [place], [address], [place]. [facility], [address], [place], [place], [address], [place] tel:[phone] [facility] No Information [facility]. [address], [place], [address], [place]. tel:[phone] [facility], [address], [place], [address], tel:[phone] [facility] No Information [facility]. [address], [place], [address], [place]. [facility], [address], [place], [place], [address], [place] tel:[phone] [facility] No Information [facility] [place]. [address], [place], [address], [place]. tel:[phone] [facility], [address], [place], [address], tel:[phone] [facility] No Information [facility]. [address], [place], [place], [address], [place]. Family History Family Member Type Diagnosis Age At Onset No Information Payers Payer name Insurance type Covered libertarian ID Yue mejia(alisha) [employer] [place] [id number] Social History Type Description Quantity Date Captured Comments Sex Female Smoking Status No Information Sexual Orientation Don't Know Gender Identity Female Chief Complaint And Reason For Visit No Information Reason For Referral Reason For Referral No Information History Of Present Illness Encounter Date Complaint History Of Prese nt Illness No Information Functional Status Date Functional Assessmen t No Information Instructions Date Instruction Additional Infor mation No Information Assessments Type Assessment Date No Information Patient Care Teams Name Effective Dates (start - stop) Status Members No Information
--- OUTSIDE RECORDS SUMMARY | 2024-04-01 23:12 | XMS_ITS | Encounter Summary ---
Author Organization [facility] Address [address] [place] [address] Care Team Providers Care Volleyball Coach Name Role Phone [facility], [facility] Primary Care P annamarie Unavailable Jd Perez PA-C Unavailable Reason for Visit * Reason Comments Medication Refill Encounter Details Date Type Department Care Team (Late st Contact Info) Description 12/24/2019 Refill [facility] [address] [place] [phone] Jd Perez PA-C [address] [place], [place] [id number] Medication Refill Social History Tobacco Use Types Packs/Day Years Used Date Smoking Tobacco: Never Smokeless Tobacco: Never Alcohol Use Standard Drinks/Week Comments No 0 (1 standard drink = 0.6 oz pur e alcohol) AUDIT-C Answer Date Recorded Frequency of Alcohol Consumption Never 04/18/2018 Average Number of Drinks Not on file 019 Frequency of Binge Drinking Not on file 07/2018 Comments No Sex and Gender Information Value Date Recorded Sex Assigned at Not on file Legal Sex Female 2:08 PM ANDROID PLATFORM DEVELOPER Gender Identity Not on file Sexual Orientation Not on file documented as of this encounter Miscellaneous Notes * Telephone Encounter - Maylin Benton - 12/25/2019 12:46 PM CST Letter sent appointments needed for refill. CARIN Arreaga OID PLATFORM DEVELOPER * Telephone Encounter - Jd Perez PA-C - 12/25/2019 11:23 AM ANDROID PLATFORM DEVELOPER Needs to be seen. Jd Perez PA-C OID PLATFORM DEVELOPER * Telephone Encounter - Vikki Bettencourt, RN - 12/25/2019 9:56 AM CST Routing refill request to provider for review/approval because: Patient needs to be seen because it has been more than 1 year since last office visit. No appointment pending at this time. Routing to provider to advise. Shelly CHAVEZN, RN OID PLATFORM DEVELOPER documented in this encounter Plan of Treatment Not on file documented as of this encounter Visit Diagnoses Diagnosis MONCHO (generalized anxiety disorder) Generalized anxiety disorder documented in this encounter Additional Health Concerns Assessment Noted Time PHQ-9 Depression Total Score: 7 04/19/19 19 3:10 PM ANDROID PLATFORM DEVELOPER documented as of this encounter Care Teams Volleyball Coach Relationship Specialty Start Date End Date Clinic, [facility] PCP - General Clinic 04/18/18 09/27/23 Jd Perez PA-C [address] [place] [address] Assigned PCP 08/19/18 08/13/21 documented as of this encounter
--- OUTSIDE RECORDS SUMMARY | 2024-04-01 23:12 | XMS_ITS | Patient Health Record ---
Author Organization [facility] Address [address] [facility] [address] [place] [address] Care Team Providers Care Automobile Body Repairer Helper Name Role Phone [facility] Primary Care [facility] er Unavailable Linda Fountain Unavailable [phone] Obdulio Quick Unavailable Unavailable Allergies Allergen (clinical drug ingredient) Drug/Non Drug Allergy documented on EMR Reaction Allergy Type Onset Date Status ibuprofen Ibuprofen shortness of breath Drug Allergy Active Reason For Referral No Information Medications Medication SIG (Take, Route, Fr equency, Duration) Notes Start Date End Date Status Propranolol HCl 10 MG 1 tablet Orally Twice a day Active Social History Tobacco Use: Social History Observation Description Date Details (start date - stop date) Never Smoker NA - NA Tobacco Use: Question Answer Notes Are you a: never smoker Alcohol: Question Answer Notes Did you have a drink containing alcohol in the p ast year? No Points 0 Interpretation Negative Problems Problem Type SNOMED Code ICD Code Onset Dates Problem Status W/U Status Risk Notes Problem Anxiety disorder (858316232) Anxiety disorder, unspecified (F41.9) Active confirmed Problem Essential hypertension (98158297) Essential (primary) hypertension (I10) Active confirmed Problem Noninflammatory disorder of uterus (04298129) Other specified noninflammatory disorders of uterus (N85.8) Active confirmed Problem Reporting test result (019859003) Person consulting for explanation of examination or test findings (Z71.2) Active confirmed Problem Irregular menstruation (07081293) Irregular menstruation, unspecified (N92.6) Active confirmed Plan Of Treatment Pending Test Test Name Order Date COMPREHENSIVE METABOLIC PANEL 06/17/2020 Pelvic Ultrasound 06/01/2020 Pelvic Ultrasound 06/01/2020 PAP 06/01/2020 PCP labs 06/30/2020 OCP Form 09/30/2021 Insurance Providers Payer Name Payer Address Payer Phone Subscriber Number Group Number Insured Name Patient Relationship to Insured Coverage Start Date Coverage End Date [facility] [address] [place] BEAVER [phone] [id number] Jerica Unger Self - patient is the insured Medical (General) History Medical History History ICD Code Essential (primary) hypertension I10 Anxiety disorder, unspecified F41.9 Surgical History Surgery Date(Month/Year) c-sec 2018 Hospitalization History Reason Date(Month/Year) childbirth x1 2018 UTI, kidney infection 06/2020
[2024-04-01 23:21] VITALS: BP 136/79; PULSE 57; RESP 16; TEMP 36.6; O2SAT 97
--- OUTSIDE RECORDS SUMMARY | 2024-04-02 00:37 | XMS_ITS | Clinical Summary ---
Author Organization [facility] Address [address] [place] [address] Care Team Providers Care Silvering Department Supervisor Name Role Phone No Primary/Referring, Phy Primary Care Provider Unavailable Source Comments You are receiving this document as you are listed as the primary care provider,follow-up provider, or the patient has been referred to you for consultation.This is in compliance with the Medicare and[facility] EHR Incentive Program,which states Providers who transition their patient to another setting of careor provider of care or refers their patient to another provider of care shouldprovide summary care record for each transition of care or referral. [facility] Allergies Active Allergy Reactions Criticality Noted Date [...] Comments Blood Pressure 106/69 01/24/2018 4:09 PM SKILLED NURSING FACILITY COUNSELOR Pulse 66 01/24/2018 4:09 PM SKILLED NURSING FACILITY COUNSELOR Temperature 36.9 C (98.5 F) 12/22/2017 6:56 PM SKILLED NURSING FACILITY COUNSELOR Respiratory Rate - - Oxygen Saturation 98% 12/14/2017 6:37 PM CDT Inhaled Oxygen Concentration - - Weight 54.9 kg (121 lb) 01/24/2018 4:09 PM SKILLED NURSING FACILITY COUNSELOR Height - - Body Mass Index - [...] age to complete this topic Care Teams Silvering Department Supervisor Relationship Specialty Start Date End Date No Primary/Referring, Phy PCP - General 12/13/17
--- OUTSIDE RECORDS SUMMARY | 2024-04-02 00:37 | XMS_ITS | Clinical Summary ---
Author Organization [facility] Address [place], [place] [address] Care Team Providers Care Bakelite Molder Name Role Phone Rachel Calderon MD Unavailable [phone] Мария Higginbotham MD Unavailable [phone] Yoana Hdez NP Primary Care Provider Allergies [...] CONSULT ON 02/20/23 Support person name: John Electric Stop Installer: Yes - ASL ULTRASOUND TYPE: REASON FOR VISIT: Hx classical C/S, hearing impaired, anxiety, PTSD NEXT VISIT ALERTS: Did she bring her blood sugar log? Last visit before delivery! LB scheduled two iron infusions at [facility] before delivery date. The supervising provider at the infusion center is Leyda Huynh APRN, RESEARCH PSYCHOLOGIST. She will call back when this pt [...] - Scheduled delivery: C 07/13/23 0930 @ [facility] PRIMARY DIAGNOSIS: 38 y.o. . Estimated Date [...] [place] 05/2023 GENETICS: none SARAH [facility]: MATERNAL CARE COORDINATION: CARE COORDINATION: SUPERVISOR WOOD ROOM: ROUTINE OB: Flu vaccine: declined COVID-19 vaccine: [...] Date: PPTL: No CHECKLIST FOR SCHEDULING PROCEDURES: [facility]: Call (dominatrix) for all scheduling Procedure: C/ Hospital: [facility] Unit: L&D Date & Time of procedure: 07/13/23 0930 Pertinent information: Hx of 25w5d Classical C/S; PROM, cord prolapse, hx of 22 wk PTD, NND, needs ASL interp Gestational age on procedure date? 36w1d MD doing procedure: Jos Date scheduled: 05/18/2023 when patient was 28w1d. Scheduling MD & RN: Jalen Notifications: Hospitalist Delivery-OBH line service person notified through [facility] inbox? Yes [facility] MD line service person notified via [employer] inbox? Yes Primary MD notified via [facility] inbox? Not Applicable Primary MD clinic called if not [place]? Not Applicable On [facility] calendar? Yes Surgical Prior Authorization completed? Yes Care Coordination notified? Not Applicable H&P/PPTL: PPTL permit signed? No H&P and Plan in chart? No [facility] appointment made for H&P with GEAR SHAPER within 30 days of procedure? No Date: Hibiclens Education given? No Hibiclens supplied to patient? No Patient notification: Patient notified of procedure date? Written admission instructions given to patient via AVS? PERTINENT MEDS: Progesterone - declines Cymbalta - started 05/17 propranolol 10 mg daily as needed for anxiety PROCEDURES: PLAN OF CARE: 06/29 per [place] Plan: OB Care - OB checks every 2 weeks from 28-34 weeks, then weekly until delivery - labor and preeclampsia precautions reviewed - Call if regular contractions, leaking of fluid, vaginal bleeding, or decreased movement - Okay to continue regular physical activity Ultrasound/Testing - L2 done with [facility] 02/20/23 - Growth ultrasound done 05/17. No further indicated. - testing not indicated at this time Labs - Initial labs GCT & treponema collected 05/18/23 - Failed 1hr GCT, will try to tow picker supplies today to check blood sugars four [...] of this appointment date/time) - Follows with [facility] for therapy - Start Duloxetine 20mg daily (declined to start until ) Consults - Weight management referral n/a - Sleep medicine referral n/a Delivery - Patient should expect repeat section at 36-37 weeks d/t prior classical hysterotomy - Repeat section scheduled 07/13/[address] Uma Arguello, [facility] - Tubal sterilization declined - Plans breast and bottle feeding - Start duloxetine 20mg daily (does not want to start prenatally) Encounters Date Type Department Care Team Description 03/11/2024 1:30 PM HEAD LOFT WORKER Office Visit [facility] [address] [place] [address] Peyman De La Rosa MD Medication Management 03/11/2024 Travel 01/19/2024 Telephone [facility] [address] [place] [address] Peyman De La Rosa MD Error-please disregard [...] bleedi ng in , second trimester Delivery Location:[facility] Comments:vaginal bleed ing 2021 22w 0d F Vag Decea sed Delivery Location:[facility] 2023 36w 1d 0h 01m 0h 01m 2.36 kg (5 lb 3.3 oz) M C-Sec tion Gener al,Sp inal Livin g 5 7 Bb Jerica Olvera on Knoedl er, Sulema Jalloh MD Complications:Anesthetic Com plications Delivery Location:Hospital ( UTD 1999 MB L&D TRIAGE) Last Filed Vital Signs Vital Sign Reading Time Taken Comments Blood Pressure 120/60 03/11/2024 1:46 PM HEAD LOFT WORKER Pulse 62 11/24/2023 1:31 PM CDT Temperature 36.8 C (98.3 F) 08/25/2023 4:24 PM CDT Respiratory Rate 16 08/25/2023 6:58 PM CDT Oxygen Saturation 99% 11/24/2023 1:31 PM CDT Inhaled Oxygen Concentration - - Weight 44.5 kg (98 lb) 03/11/2024 1:46 PM HEAD LOFT WORKER Height 152.4 cm (5') 08/25/2023 4:24 PM CDT Body Mass Index 19.14 08/25/2023 4:24 PM CDT Plan of Treatment Upcoming Encounters Date Type Department Care Team (Late st Contact Info) Description 05/13/2024 1:30 PM CDT Office Visit [facility] [address] [place] [address] Pemyan De La Rosa MD [address] [place] [address] Scheduled Procedures Name Priority Associated Diagnoses Date/Ti [...] Procedure Name Priority Date/Time Associated Diagnosis Comments CLIMATE CHANGE RISK ASSESSOR THIN PREP PAP SCREEN IMAGED Routine 09/06/2023 12:44 PM CDT Pap smear for cervical cancer screening ANTI HIV 1/2 Today 05/18/2023 2:10 PM CDT from Last 3 Months or Most Recently Relevant to Health Maintenance Results * (ABNORMAL) CLIMATE CHANGE RISK ASSESSOR THIN PREP PAP SCREEN IMAGED (09/06/2023 12:44 PM CDT) Case Report Gynecologic Cytology Report Case: [id number] Authorizing Provider: Colby Reid MD Collected: 09/06/2023 1244 [facility] Received: 09/06/2023 1245 Clinic First Screen: Baclidia Minie Pathologist: Akila Mishra MD Specimen: CLIMATE CHANGE RISK ASSESSOR ThinPrep Vial Screening, Cervical 09/14/2023 9:16 AM CDT [facility] INTERPRETATION/ RESULT ATYPICAL SQUAMOUS CELLS OF UNDETERMINED SIGNIFICANCE (ASCUS)(A) (none) 09/14/2023 9:16 AM CDT [facility] IMEN ADEQUACY Satisfactory for evaluation No endocervical component seen 09/14/2023 9:16 AM CDT [facility] HPV REQUEST HPV and PAP 09/14/2023 9:16 AM CDT [facility] Date of LMP unknown 09/14/2023 9:16 AM CDT [facility] Last Pap Date unknown 09/14/2023 9:16 AM CDT [facility] Last Pap Result First Pap/Unknown 09/14/2023 9:16 AM CDT [facility] Abnormal Pap or [place] Bx in last 5 years No 09/14/2023 9:16 AM CDT [facility] Menstrual Status 09/14/2023 9:16 AM CDT [facility] [place] Bx Done Today No 09/14/2023 9:16 AM CDT [facility] Additional Information None given 09/14/2023 9:16 AM CDT [facility] Comment: Cytology is screened at [facility] - [address], [place] [address] and [facility] - [address], [place] [address] and [facility] - [address] [place] [address] Interpreted at [facility] - [address], [place] [address] Automated Review Successful 09/14/2023 9:16 AM CDT [facility] Comment:Specimen processed s uccessfully by automated straddle bug driver device, ThinPrep Imaging System, [employer] ANCILLARY TESTING CLIMATE CHANGE RISK ASSESSOR HPV Ordered, Please see separate report 09/14/2023 9:16 AM CDT [facility] Note The pap test is a [...] and malignant lesions. 09/14/2023 9:16 AM CDT [facility] Other (Cervical) Non-Blood / Unknown 09/06/2023 12:44 PM CDT 09/06/2023 12:45 PM CDT us Colby Reid MD PATHOLOGY/CYTOLOGY Final Result [facility] [address] [place] [address], [place] * Anti HIV1/2 (05/18/2023 2:10 PM CDT) HIV-1/HIV-2 SCREEN Non-Reacti ve Non-Reacti ve 05/18/2023 10:42 PM CDT [facility] Comment:HIV-1 p24 and HIV-1/ HIV-2 Ab Not Detected. Blood BLOOD SPECIMEN / Unknown Non-Lab Venipuncture / Unknown 05/18/2023 2:10 PM CDT 05/18/2023 2:47 PM CDT us Rebeca Holley GEAR SHAPER SEND OUTS Final Res ult JED [facility] [address] [place] [address], [place] from Last 3 Months or Most Recently Relevant to Health Maintenance Insurance BLUE ADVANTAGE [facility] Advance Directives * Full Code (Latest Code Status on File) Date Activated Date Inactivated Comments 07/13/2023 10:39 AM 07/16/2023 3:22 PM Question Answer Comments Code Status Discussion: Reviewed Preferences Care Teams Bakelite Molder Relationship Specialty Start Date End Date Yoana Hdez NP [address] [facility] [place] [address] PCP - General Nurse Practitioner - Family 08/30/23 Rachel Calderon MD [address] [facility] [place] [address] Family Practice 02/14/23 Мария Higginbotham MD [address] [place] [address] Psychiatry 06/01/23
--- OUTSIDE RECORDS SUMMARY | 2024-04-02 00:37 | XMS_ITS | Continuity of Care Document ---
Author Organization [facility] Address [address] [place] [address] Phone Care Team Providers Care Dice Spotter Name Role Phone [facility] Unavailable Unavailable Procedures Procedure Date Other Specified [...] Providers Copied on Encounter [facility], [address], [place], [place], [id number], [place] tel:[phone] [facility] No Information [facility]. [address], [address], [place], [place], [id number], [place]. [facility], [address], [place], [place], [address], [place] tel:[phone] [facility] No Information [facility]. [address], [place], [place], [id number], [place]. [facility], [address], [place], [place], [address], [place] tel:[phone] [facility] No Information [facility]. [address], [place], [place], [address], [place]. tel:[phone] [facility], [address], [place], [place], [address], [place] tel:[phone] [facility] No Information [facility]. [address], [place], [place], [address], [place]. tel:[phone] [facility], [address], [place], [place], [address], [place] tel:[phone] [facility] No Information [facility]. [address], [place], [place], [address], [place]. tel:[phone] [facility], [address], [place], [place], [address], [place] tel:[phone] [facility] No Information [facility]. [address], [place], [place], [address], [place]. tel:[phone] [facility], [address], [place], [place], [address], [place] tel:[phone] [facility] No Information [facility]. [address], [place], [place], [address], [place]. tel:[phone] [facility], [address], [place], [place], [address], [place] tel:[phone] [facility] No Information [facility]. [address], [place], [place], [address], [place]. tel:[phone] [facility], [address], [place], [place], [address], [place] tel:[phone] [facility] No Information [facility]. [address], [place], [place], [address], [place]. tel:[phone] [facility], [address], [place], [place], [address], [place] tel:[phone] [facility] No Information [facility]. [address], [place], [place], [address], [place]. [facility], [address], [place], [place], [address], [place] tel:[phone] [facility] No Information [facility]. [address], [place], [place], [address], [place]. tel:[phone] [facility], [address], [place], [place], [address], [place] tel:[phone] [facility] No Information [facility]. [address], [place], [place], [address], [place]. [facility], [address], [place], [place], [address], [place] tel:[phone] [facility] No Information [facility]. [address], [place], [place], [address], [place]. tel:[phone] [facility], [address], [place], [place], [address], tel:[phone] [facility] No Information [facility]. [address], [place], [place], [address], [place]. [facility], [address], [place], [place], [address], [place] tel:[phone] [facility] No Information [facility]. [address], [place], [place], [address], [place]. tel:[phone] [facility], [address], [place], [place], [address], tel:[phone] [facility] No Information [facility]. [address], [place], [place], [address], [place]. Family History Family Member Type Diagnosis Age At Onset No Information Payers Payer name Insurance type Covered libertarian ID Yue mejia(alisha) [employer] [place] [id number] Social History Type Description Quantity Date Captured [...]
--- OUTSIDE RECORDS SUMMARY | 2024-04-02 00:37 | XMS_ITS | Patient Health Record ---
Author Organization [facility] Address [address] [place] [address] Care Team Providers Care Glove Maker Name Role Phone 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 Problem Reporting test result (414549394) Person consulting for explanation of examination or test findings (Z71.2) Active confirmed Problem Irregular menstruation (60032576) Irregular menstruation, unspecified (N92.6) Active confirmed Plan Of Treatment Pending Test Test Name Order Date COMPREHENSIVE METABOLIC PANEL 06/17/2020 Pelvic Ultrasound 06/01/2020 Pelvic Ultrasound 06/01/2020 PAP 06/01/2020 PCP labs 06/30/2020 OCP Form 09/30/2021 Insurance Providers Payer Name Payer Address Payer Phone Subscriber Number Group Number Insured Name Patient Relationship to Insured Coverage Start Date Coverage End Date [facility] [address] JENNIFERSARAHJAMIE BEAVER [phone] [id number] Jerica Unger Self - patient is the insured Medical (General) History Medical History History ICD Code Essential (primary) hypertension I10 Anxiety disorder, unspecified F41.9 Surgical History Surgery Date(Month/Year) c-sec 2018 Hospitalization History Reason Date(Month/Year) childbirth x1 2018 UTI, kidney infection 06/2020
--- OUTSIDE RECORDS SUMMARY | 2024-04-02 00:37 | XMS_ITS | Clinical Summary ---
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
--- OUTSIDE RECORDS SUMMARY | 2024-04-02 00:37 | XMS_ITS | Continuity of Care Document ---
Author Organization [facility] Address [address] [place] [address] Phone Care Team Providers Care Sample Paster Name Role Phone Obdulio Quick PA-C Unavailable Unavailable Allergies, Adverse Reactions, Alerts Substance Reaction Status Criticality Sulfa (Sulfonamide Antibiotics) RashRash Active No Information ibuprofen ItchingItching Active No Informatio n aspirin ItchingItching Active No Informatio n Medications Medication Instructions Dosage Effective Dates (start - stop) Status Comments Diclegis 10 mg-10 mg tablet,delayed release take 2 tablet by oral route every day at bedtime, if needed add 1 tablet by oral rout in the morning and 1 tablet in the mid-afternoon - Active folic acid 1 mg tablet take 1 tablet by oral route every day 1 MG - Active omeprazole 20 mg capsule,delayed release take 1 capsule by oral route every day 30 minutes to 1 hour before BREAKFAST - Active Colace 100 mg capsule take [...] 80 MM HG MED LIST DOCD IN [facility] AMNT PAIN NOTED; NONE PRSNT MED LIST DOCD IN [facility] OFFICE/OUTPATIENT VISIT, EST SYST BP LT 130 MM HG DIAST BP < 80 MM HG MED LIST DOCD IN [facility] OFFICE/OUTPATIENT VISIT, EST Targeted case management AMNT PAIN NOTED; NONE PRSNT OFFICE/OUTPATIENT VISIT, EST SYST BP LT 130 MM HG DIAST BP < 80 MM HG Clin depression screen doc AMNT PAIN NOTED; NONE PRSNT MED LIST DOCD IN [facility] URINALYSIS NONAUTO W/O SCOPE Office Visit SUBSEQUENT CARE SUBSEQUENT CARE SUBSEQUENT CARE ACP DISCUSS-NO DSCNMKR DOC'D URINALYSIS NONAUTO W/O SCOPE SUBSEQUENT CARE MED LIST DOCD IN [facility] FLOW SHEET Antepartum Visit SYST BP LT 130 MM HG DIAST BP < 80 MM HG Scrning perf and negative NO SIG DEP SYMP BY DEP TOOL ACP DISCUSS-NO DSCNMKR DOC'D MED LIST DOCD IN [facility] AMNT PAIN NOTED; NONE PRSNT FLOW SHEET OFFICE/OUTPATIENT VISIT, EST Antepartum Visit SYST BP LT 130 MM HG DIAST BP < 80 MM HG ACP DISCUSS-NO DSCNMKR DOC'D SUBSEQUENT CARE ACP DISCUSS-NO DSCNMKR DOC'D SUBSEQUENT CARE URINALYSIS NONAUTO W/O SCOPE MED LIST DOCD IN [facility] Initial PN Exam New Pt(Under [...] DISCUSS-NO DSCNMKR DOC'D MED LIST DOCD IN [facility] OFFICE/OUTPATIENT VISIT, EST SYST BP LT 130 MM HG DIAST BP < 80 MM HG AMNT PAIN NOTED; NONE PRSNT FXNL STATUS ASSESSED MED LIST DOCD IN RD OFFICE/OUTPATIENT VISIT, EST SYST BP LT 130 MM HG DIAST BP < 80 MM HG MED LIST DOCD IN [facility] HEMOGLOBIN OFFICE/OUTPATIENT VISIT, EST SYST [...] ABSOLUTE NEUTROPHILS 09:55: 00 4308 cells/ uL [id number] N Final ABSOLUTE BAND NEUTROPHILS 09:55: 00 [...] Before After Negative Rate Test Result Ashkenazi Yarsanism 94% 1 in 24 1 in 400Non- 88% 1 in 25 1 in 208CaucasianHispanic- [place] 72% 1 in 46 1 in 164African-[place] 65% 1 in 65 1 in 186Asian-[place] 49% 1 in 94 1 in 184Other insufficient data available Health care providers, please contact your local [employer] genetic counselor or call [employer] at [email or web address] ([phone]) for assistance withinterpretation of these results. MUTATIONS/POLYM ORPHISMS 09:55: 00 SEE NOTE Final MUTATIONS ANAL YZED: G85E (c.254G>A) S549N (c.1646G>A)394delTT (c.262delTT) G551D (c.1652G>A)R117H (c.350G>A) R553X (c.1657C>T)621+1 G>T (c.489+1G>T) R560T (c.1679G>C)711+1 G>T (c.579+1G>T) 1898+1 G>A (c.1766+1G>A)1078delT (c.948delT) 2183AA>G (c.2051delAAinsG)R334 W (c.1000C>T) 2184delA (c.2052delA)R347H (c.1040G>A) 2789+5 G>A (c.2657+5G>A)R347P (c.1040G>C) 3120+1 G>A (c.2988+1G>A)A455E (c.1364C>A) D1143A (c.3484C>T)G517cxf (c.1519delATC) 3659delC (c.3528delC)L081shv (c.1521delCTT) 3849+10kb C>T (c.0717+85363W>T)V520 F (c.1558G>T) 3876delA (c.3744delA)1717-1 G>A (c.1585-1G>A) 3905insT (c.3773insT)G542X (c.1624G>T) U9436E (c.3846G>A)S549R (c.1645A>C or c.1647T>G) W0832Z (c.3909C>G) This assay detects thirty-two mutations, including thetwenty-three core mutations recommended by the AmericanCollege of Medical Genetics (ACMG) and the [place] Congressof Obstetricians and Gynecologists (ACOG) forpopulation-based CF [...] of t he testing was performed at [facility] [place]Laboratory results and submitted clinical informationreviewed by Lucille Lora, Ph.D., [facility], [facility]. For additional information, please refer tohttp://education.[employer].com/fa q/cfscreen(This link is being provided for informational/educati onalpurposes only.) This test was developed and its analytical performancecharacteri stics have been determined by [employer].It has not been cleared or approved by [...] diagnosis of diabetes in children. According to [place] Diabetes Association (ADA)guidelines, hemoglobin A1c <7.0% represents [...] Final For additional information, please refer to http://education.[employer]/faq/ PVE541 (This link is being provided for informational/educati onal purposes only.) Panel Description: OBSTETRIC PANEL Final RPR (DX) W/REFL TITER AND CONFIRMATORY TESTING 09:55: 00 NON-REACTIV E NON-REACTI VE N Final Panel Description: OBSTETRIC PANEL Final HEPATITIS B SURFACE ANTIGEN 09:55: 00 NON-REACTIV E NON-REACTI VE N Final For additional information, please refer to http://education.Poliana/faq/ ZRM825 (This link is being provided for informational/educati [...] this purpose. For additional information please refer tohttp://[employer]/fa q/BLX826(This link is being provided for informational/educati onal [...] suspected, a test for HCV RNA(test code 32307) is suggested. For additional information please refer tohttp://education.[employer]/fa q/JWR97m3(This link is being provided for informational/educati onal [...] OF THE REFLEX TEST. PLEASE CONTACT A MOTOR VEHICLE DISPATCHER AT [employer] IF YOU WOULD LIKE ADDITIONAL TESTING DONE OR CONTACT YOUR CEPHALOMETRIC TECHNICIAN TO OBTAIN A COPY OF THE REFLEXIVE TESTING AUTHORIZATION FORM. Advance Directives Directive Yes / No Effective Date File Name No Information Encounters Encounter Description Practice Location Reason(s) For Visit Diagnoses Date Provider Providers Copied on Encounter [facility], [address], [place], [id number], [place] tel:[phone] MEDICAL routine (chief complaint) First trimester pregnancyEnco unter for gynecological examination (general) (routine) without abnormal findingsEncou nter for screening for cardiovascula r disorders 3 Ynes Mak. [address] [place], [address], [place]. tel:[phone] [facility], [address], [place], [id number], [place] tel:[phone] MEDICAL CPSP ORIENTATION PER PROTOCOLS/SEE CPSP FILE (chief complaint) Encntr for suprvsn of normal preg, unsp, first trimester 3 Panfilo Mcmillan. [address] [place], [address], [place]. tel:[phone] OFFICE/OUTPA TIENT VISIT, [facility], [address], [place], [id number], [place] tel:[phone] MENTAL HEALTH psych follow up (chief complaint) Generalized Anxiety DisorderGERD without esophagitis [address] [place], [address], [place]. tel:[phone] OFFICE/OUTPA TIENT VISIT, [facility], [address], [place], [id number], [place] tel:[phone] MEDICAL test (chief complaint) Encounter for administrativ e examinations, unspecifiedEn counter for test, result positiveEncnt r screen for infections w sexl mode of transmissAmen orrhea, unspecified Nov 3 Omoko Deyanira. [address] [place], [address], [place]. tel:[phone] [facility], [address], [place], [id number], [place] tel:[phone] MEDICAL WC No Information Oct-[address] [place], [address], [place]. tel:[phone] OFFICE/OUTPA TIENT VISIT, [facility], [address], [place], [id number], [place] tel:[phone] MENTAL HEALTH WC f/u psych (chief complaint) Generalized Anxiety Disorder [address] [place], [address], [place]. tel:[phone] [facility], [address], [place], [id number], [place] tel:[phone] MEDICAL WC No Information Aug- 3 No Information PSYTX, OFF, 45-50 MIN [facility], [address] [place], [place], [id number], [place] tel:[phone] MENTAL HEALTH CO f/u anxiety (chief complaint) Generalized Anxiety DisorderSocia l anxiety disorder [address] [place], [address], [place]. tel:[phone] OFFICE/OUTPA TIENT VISIT, [facility], [address] [place], [place], [id number], [place] tel:[phone] MENTAL HEALTH CO psyc follow up (chief complaint) Generalized Anxiety DisorderGERD without esophagitisSo cial anxiety disorder May-[address] [place], [address], [place]. tel:[phone] OFFICE/OUTPA TIENT VISIT, [facility], [address], [place], [id number], [place] tel:[phone] MEDICAL WC anxiety f/u (chief complaint) GERD without esophagitisAn xietyInsomnia , unspecified type Mar- 3 No Information OFFICE/OUTPA TIENT VISIT, [facility], [address], [place], [id number], [place] tel:[phone] MEDICAL WC f/u GERD (chief complaint)Con stipation (chief complaint) Dietary counseling and surveillanceB mark mass index [BMI] 19.9 or less, adultGERD without esophagitisAb dominal bloatingConst ipation, unspecified constipation typeEncounter for screening for cardiovascula r disorders 3 Enrique Lees. [address] [place], [address], [place]. tel:[phone] [facility], [address], [place], [address], [place] tel:[phone] MENTAL HEALTH WC Generalized Anxiety Disorder 3 Stacy Miller. [address] [place], [address], [place]. tel:[phone] OFFICE/OUTPA TIENT VISIT, [facility], [address], [place], [id number], [place] tel:[phone] MEDICAL WC GI discomfort (chief complaint)anx iety (chief complaint) GERD without esophagitisAn xietyOther constipationE ncounter for screening for cardiovascula r disordersEnco unter for administrativ e examinations, unspecified 3 No Information OFFICE/OUTPA TIENT VISIT, [facility], [address], [place], [id number], [place] tel:[phone] MEDICAL WC f/u on anxiety (chief complaint) Dietary counseling and surveillanceB mark mass index [BMI] 19.9 or less, adultHemorrho ids, unspecified hemorrhoid typeUnemploym ent, unspecifiedPr oblem related to primary support group, unspecifiedSt ress, not elsewhere classifiedAbd ominal bloatingGERD without esophagitisAn xietyEncounte r for screening for cardiovascula r disorders [address] [place], [address], [place]. tel:[phone] [facility], [address], [place], [address], [place] tel:[phone] MENTAL HEALTH WC Generalized Anxiety DisorderEncnt r for obs for oth suspected diseases and cond ruled out 3 Stacy Miller. [address] [place], [address], [place]. tel:[phone] PSYTX, OFF, 45-50 MIN [facility], [address], [place], [id number], [place] tel:[phone] MENTAL HEALTH WC Encntr for obs for oth suspected diseases and cond ruled outGeneralize d Anxiety DisorderMajor depressive disorder, recurrent, moderatePost- traumatic stress disorder, chronic 3 No Information OFFICE/OUTPA TIENT VISIT, EST [facility], [address], [place], [id number], [place] tel:[phone] MEDICAL WC Follow Up of Anxiety (chief complaint)Det ails (chief complaint) Dietary counseling and surveillanceB mark mass index [BMI] 20.0-20.9, adultGERD without esophagitisAn xietyEncounte r for screening for cardiovascula r disorders 2 No Information PREV VISIT, EST, AGE 18-39YRS OLD [facility], [address], [place], [id number], [place] tel:[phone] MEDICAL WC Annual Physical (chief complaint) Dietary counseling and surveillanceB mark mass index [BMI] 20.0-20.9, adultAnxietyA bdominal bloatingAnnua l physical examChronic anemiaExercis e counselingEnc ounter for screening for cardiovascula r disorders 2 Robert Benavidez. [address] [place], [address], [place]. tel:[phone] [facility], [address], [place], [address], [place] tel:[phone] MENTAL HEALTH WC Encntr for obs for oth suspected diseases and cond ruled out 2 Stacy Miller. [address] [place], [address], [place]. tel:[phone] OFFICE/OUTPA TIENT VISIT, [facility], [address], [place], [id number], [place] tel:[phone] MEDICAL WC Stomach Pain (chief complaint) Dietary counseling and surveillanceB mark mass index [BMI] 21.0-21.9, adultLeft upper quadrant painEncounter for screening for cardiovascula r disorders 2 No Information OFFICE/OUTPA TIENT VISIT, [facility], [address], [place], [id number], [place] tel:[phone] MEDICAL WC uti follow up (chief complaint) Dietary counseling and surveillanceB mark mass index [BMI] 21.0-21.9, adultDysuriaH eartburn symptomEncoun ter for screening for cardiovascula r disorders 2 Ynes Mak. [address] [place], [address], [place]. tel:[phone] OFFICE/OUTPA TIENT VISIT, [facility], [address], [place], [id number], [place] tel:[phone] MEDICAL WC UTI (chief complaint)gas (chief complaint) Encounter for administrativ e examinations, unspecifiedDi etary counseling and surveillanceB mark mass index [BMI] 21.0-21.9, adultAcute UTIDeaf, bilateralNoni ntractable headache, unspecified chronicity pattern, unspecified headache typeAbdominal bloatingHeart burnAnxietySc reening for cholesterol levelScreenin g for diabetes mellitusScree jerad, deficiency anemia, ironScreening for thyroid disorderEncou nter for screening for cardiovascula r disorders 2 Damico Celia. [address] [place], [address], [place]. tel:[phone] OFFICE/OUTPA TIENT VISIT, [facility], [address], [place], [id number], [place] tel:[phone] MEDICAL WC ER follow up (chief complaint) Dietary counseling and surveillanceB mark mass index [BMI] 21.0-21.9, adultHistory of UTIEncounter for screening for cardiovascula r disorders 2 Ynes Mak. [address] [place], [address], [place]. tel:[phone] OFFICE/OUTPA TIENT VISIT, [facility], [address], [place], [id number], [place] tel:[phone] MEDICAL WC ER f/u UTI (chief complaint) Acute UTIMedication refill 2 Jennifer Goyal. [facility] [place], [address], [place]. tel:[phone] [facility], [address], [place], [id number], [place] tel:[phone] MENTAL HEALTH WC Encntr for obs for oth suspected diseases and cond ruled out 2 Stacy Miller. [facility] [place], [address], [place]. tel:[phone] OFFICE/OUTPA TIENT VISIT, [facility], [address], [place], [id number], [place] tel:[phone] MEDICAL WC pelvic exam (chief complaint) Dietary counseling and surveillanceB mark mass index [BMI] 20.0-20.9, adultGynecolo gic exam normalEncount er for screening for cardiovascula r disorders 2 Ynes Mak. [address] [place], [address], [place]. tel:[phone] [facility], [address], [place], [address], [place] tel:[phone] MENTAL HEALTH WC Encntr for obs for oth suspected diseases and cond ruled out 2 Stacy Angela. [address] [place], [address], [place]. tel:[phone] [place] [address], [address], [place], [id number], [place] tel:[phone] MEDICAL WC check (chief complaint) Encounter for administrativ e examinations, unspecifiedPr emature deliveredAcut e midline low back pain with sciatica, sciatica laterality unspecifiedEn counter for routine follow-up 2 Ynes Mak. [address] [place], [address], [place]. tel:[phone] [place] [address], [address], [place], [id number], [place] tel:[phone] MEDICAL WC No Information 2 Omoko Deyanira. [address] [place], [address], [place]. tel:[phone] [place] [address], [address], [place], [id number], [place] tel:[phone] MEDICAL WC No Information 2 Ynes Mak. [address] [place], [address], [place]. tel:[phone] [facility], [address], [place], [id number], [place] tel:[phone] MEDICAL WC No Information 2 Nellieri Obdulio. [address] [place], [address], [place]. tel:[phone] [facility], [facility] [address], [id number], [place] tel:[phone] MEDICAL WC History of placental abruptionHist ory of PROM in previous , currently , first trimesterHist ory of premature delivery, currently 2 Nellieri Obdulio. [address] [place], [address], [place]. tel:[phone] [facility], [address] [place] [address], [id number], [place] tel:[phone] MEDICAL WC routine (chief complaint) Body mass index (BMI) 20.0-20.9, adultEncounte r for administrativ e examinations, unspecified 2 No Information [facility], [address] [place] [address], [id number], [place] tel:[phone] MEDICAL WC No Information 2 Roxannenaniri Obdulio. [address] [place], [address], [place]. tel:[phone] [facility], [address] [place] [address], [id number], [place] tel:[phone] MEDICAL WC routine (chief complaint) Body mass index (BMI) 19 or less, adultSecond trimester pregnancyEnco unter for screening for cardiovascula r disordersUnem ployment, unspecifiedPr oblem related to primary support group, unspecified 2 Nellieri Obdulio. [address] [place] [address], [address], [place]. tel:[phone] OFFICE/OUTPA TIENT VISIT, EST [facility], [address] [place] [address], [id number], [place] tel:[phone] MEDICAL routine (chief complaint) First trimester pregnancyEnco unter for screening for cardiovascula r disorders 2 Nellieri Obdulio. [address] [place], [address], [place]. tel:[phone] [place] [address], [address] [place] [address], [id number], [place] tel:[phone] MEDICAL No Information 2 Ancillary Provider. [address] [place], [address], [place]. tel:[phone] [facility], [address] [place] [address], [id number], [place] tel:[phone] MEDICAL No Information 2 Ynes Mak. [address] [place], [address], [place]. tel:[phone] [facility], [address] [place] [address], [id number], [place] tel:[phone] MEDICAL routine (chief complaint) First trimester pregnancyEnco unter for administrativ e examinations, unspecifiedHi gh-risk in first trimesterHist ory of placental abruptionHist ory of PROM in previous , currently , first trimesterHist ory of premature delivery, currently Encou nter for screening for cardiovascula r disorders8 weeks gestation of pregnancyBody mass index (BMI) 21.0-21.9, adult May- 2 Nellieri Obdulio. [address] [place], [address], [place]. tel:[phone] [place] [address], [address] [place] [address], [id number], [place] tel:[phone] MEDICAL CPSP Orientation per protocols/see CPSP file (chief complaint) First trimester 2 Omoko Deyanira. [address] [place], [address], [place]. tel:[phone] OFFICE/OUTPA TIENT VISIT, [facility], [address], [place], [id number], [place] tel:[phone] MEDICAL WC test (chief complaint) Encounter for administrativ e examinations, unspecifiedEn counter for test, result positiveEncnt r screen for infections w sexl mode of transmissAmen orrhea, unspecified Apr- 2 Omoko Deyanira. [address] [place], [address], [place]. tel:[phone] OFFICE/OUTPA TIENT VISIT, [facility], [address], [place], [id number], [place] tel:[phone] MEDICAL WC Follow up on lab test(s) (chief complaint) Iron deficiency anaemiaAnxiet ySevere persistent asthma without complication 2 No Information OFFICE/OUTPA TIENT VISIT, [facility], [address], [place], [id number], [place] tel:[phone] MEDICAL WC medication refill (chief complaint) Body mass index (BMI) 21.0-21.9, adultEncounte r for medication refillEncount er for screening for cardiovascula r disorders 2 Kimi Alvarez. [address] [place], [address], [place]. tel:[phone] Consulting Provider: Jyotsna Rocha, [facility] [place], [address]. tel:[phone] [facility], [address], [place], [address], [place] tel:[phone] MEDICAL WC Pleurodynia Feb-2 2 No Information OFFICE/OUTPA TIENT VISIT, [facility], [address], [place], [id number], tel:[phone] MEDICAL WC Preventive exam (chief complaint)F/u asthma (chief complaint) Body mass index (BMI) 21.0-21.9, adultSevere persistent asthma without complicationA nxietyPleurit ic chest painMicrocyti c anemiaMixed hyperlipidemi a 2 No Information OFFICE/OUTPA TIENT VISIT, [facility], [address], [place], [id number], [place] tel:[phone] MEDICAL WC asthma (chief complaint) Body mass index (BMI) 22.0-22.9, adultMild intermittent asthma with (acute) exacerbationE ncounter for screening for cardiovascula r disorders 2 Kimi Alvarez. [address] [place] [address], [address], . tel:[phone] Consulting Provider: Jyotsna Rocha, [facility] [place], [address]. tel:[phone] OFFICE/OUTPA TIENT VISIT, [facility], [address], [place], [id number], [place] tel:[phone] MEDICAL WC MED REFILL (chief complaint) Body mass index (BMI) 22.0-22.9, adultAnemia, unspecifiedEx cessive and frequent menstruation with regular cycleEncounte r for screening for cardiovascula r disorders 1 Ynes Mak. [address] [place], [address], . tel:[phone] OFFICE/OUTPA TIENT VISIT, [facility], [address], [place], [id number], [place] tel:[phone] MEDICAL WC anxiety (chief complaint)CC Anxiety (chief complaint) Body mass index (BMI) 23.0-23.9, adultAnxietyD eaf-mutismEpi gastric pain 1 No Information OFFICE/OUTPA TIENT VISIT, [facility], [address], [place], [id number], [place] tel:[phone] MEDICAL WC Office Visit (chief complaint) Iron deficiency anemia, unspecified iron deficiency anemia typeVitamin D deficiencyPre diabetesEleva ruddy liver enzymesMixed hyperlipidemi aEpigastric pain 1 No Information OFFICE/OUTPA TIENT VISIT, [facility], [address], [place], [id number], [place] tel:[phone] MEDICAL WC c/o stomach pain (chief complaint) Body mass index (BMI) 23.0-23.9, adultEpigastr ic painAnxietyDe af-mutismEnco unter for screening for cardiovascula r disorders 1 Kimi Alvarez. [address] [place], [address], [place]. tel:[phone] OFFICE/OUTPA TIENT VISIT, [facility], [address], [place], [address], [place] tel:[phone] MEDICAL WC Office Visit (chief complaint) Medication refillEpigast jose painLUQ painAnxietyEn counter for screening for cardiovascula r disorders 1 No Information PREV VISIT, [facility], AGE 18-39YRS OLD [facility], [address], [place], [address], [place] tel:[phone] MEDICAL WC physical (chief complaint) Body mass index (BMI) 23.0-23.9, adultDeaf-mut ismPhysical exam, annualAnxiety Chronic GERDEncounter for vitamin deficiency screeningScre ening cholesterol levelScreenin g for deficiency anemiaScreeni ng for diabetes mellitusScree jerad for STD (sexually transmitted disease)Scree jerad for thyroid disorderEncou nter for screening for cardiovascula r disorders 1 Amauri Guardado. [address] [place], [address], [place]. tel:[phone] OFFICE/OUTPA TIENT VISIT, [facility], [address], [place], [id number], [place] tel:[phone] MEDICAL WC telemedicine (chief complaint)Med refills (chief complaint) Anxiety 1 Amauri Guardado. [facility] [place], [address], [place]. tel:[phone] OFFICE/OUTPA TIENT VISIT, [facility], [address], [place], [address], [place] tel:[phone] MEDICAL WC telemedicine (chief complaint) Mild intermittent asthma with (acute) exacerbationC hronic GERDDeaf-muti sm 1 Luis Armando Pressley. [address] [place], [address], [place]. tel:[phone] OFFICE/OUTPA TIENT VISIT, [facility], [address], [place], [id number], [place] tel:[phone] MEDICAL WC ER Follow up (chief complaint)Fol low up on lab test(s) (chief complaint) Body mass index (BMI) 24.0-24.9, adultMild intermittent asthma with (acute) exacerbationE ncounter for screening for cardiovascula r disorders 1 No Information [facility], [address], [place], [id number], [place] tel:[phone] MENTAL HEALTH WC Encntr for obs for oth suspected diseases and cond ruled out 1 Stacy Miller. [facility] [place], [address], [place]. tel:[phone] [facility], [address], [place], [id number], [place] tel:[phone] MEDICAL WC Preventive exam (chief complaint) Body mass index (BMI) 25.0-25.9, adultPhysical exam, annual 1 No Information [facility], [address] [place], [id number], [place] tel:[phone] MEDICAL WC Telemedicine visit (chief complaint) Anxiety 0 1 No Information [facility], [address], [place], [place], [id number], [place] tel:[phone] MEDICAL WC Encntr for obs for oth suspected diseases and cond ruled out 1 No Information OFFICE/OUTPA TIENT VISIT, [facility], [address], [place], [id number], [place] tel:[phone] MEDICAL WC telemedicine (chief complaint) AnxietyAbdomi nal pain, unspecified abdominal location 1 Ramu Pelayo. [address] [place], [address], [place]. tel:[phone] [facility], [address] [place], [id number], [place] tel:[phone] MEDICAL WC Excessive and frequent menstruation with regular cycleIrregula r menses 1 Ynes Mak. [address] [place], [address], [place]. tel:[phone] OFFICE/OUTPA TIENT VISIT, [facility], [address] [place], [id number], [place] tel:[phone] MEDICAL WC TELEMED (chief complaint) Breakthrough bleeding 1 Ynes Mak. [address] [place], [address], [place]. tel:[phone] OFFICE/OUTPA TIENT VISIT, [facility], [address] [place], [id number], [place] tel:[phone] MEDICAL WC TELEMED (chief complaint) Breakthrough bleeding 1 Waziri Obdulio. [address] [place], [address], [place]. tel:[phone] OFFICE/OUTPA TIENT VISIT, [facility], [address], [place], [id number], [place] tel:[phone] MEDICAL WC Follow Up of Anxiety (chief complaint) Anxiety Jan- 0 Amauri Guardado. [address] [place], [address], [place]. tel:[phone] OFFICE/OUTPA TIENT VISIT, [facility], [address], [place], [id number], [place] tel:[phone] MEDICAL WC Body mass index (BMI) 25.0-25.9, adultExcessiv e and frequent menstruation with regular cycle 0 Waziri Obdulio. [address] [place], [address], [place]. tel:[phone] PHONE E/M BY PHYS 11-20 MIN [facility], [address], [place], [id number], [place] tel:[phone] MEDICAL WC HEAVY AND PORLONGED MENSES (chief complaint) Excessive and frequent menstruation 0 Waziri Obdulio. [address] [place], [address], [place]. tel:[phone] OFFICE/OUTPA TIENT VISIT, [facility], [address] [place], [id number], [place] tel:[phone] MEDICAL CO Anxiety (chief complaint)Tel emedicine (chief complaint) Anxiety Oct- 0 Amauri Guardado. [address] [place], [address], [place]. tel:[phone] PHONE E/M BY PHYS 11-20 MIN [facility], [address] [place], [id number], [place] tel:[phone] MEDICAL WC TELEMED (chief complaint) Irregular menses Oct- 0 Waziri Obdulio. [address] [place], [address], [place]. tel:[phone] PREV VISIT, [facility], AGE 18-39YRS OLD [facility], [address], [place], [id number], [place] tel:[phone] MEDICAL WC annual exam (chief complaint) Body mass index (BMI) 25.0-25.9, adultWell woman examScreening for cervical cancerScreeni ng for HPV (human papillomaviru s)Excessive and frequent menstruation with regular cycle Oct- 0 Waziri Obdulio. [address] [place] [address], [address], [place]. tel:[phone] OFFICE/OUTPA TIENT VISIT, [facility], [address], [place], [id number], [place] tel:[phone] MEDICAL irregular menstruation (chief complaint) Body mass index (BMI) 25.0-25.9, adultExcessiv e and frequent menstruation with regular cycle Oct-0 0 Waziri Obdulio. [address] [place] [address], [address], [place]. tel:[phone] PHONE E/M BY PHYS 11-20 MIN [facility], [address], [place], [id number], [place] tel:[phone] MEDICAL WC TELEMED (chief complaint) Irregular menses Sep- 0 Waziri Obdulio. [address] [place], [address], [place]. tel:[phone] OFFICE/OUTPA TIENT VISIT, [facility], [address], [place], [id number], [place] tel:[phone] MEDICAL WC Telemedicine visit (chief complaint)UTI (chief complaint) UTI (urinary tract infection), uncomplicated Jul- 0 Hathuc Chinhnam. [address] [place], [address], [place]. tel:[phone] OFFICE/OUTPA TIENT VISIT, [facility], [address], [place], [id number], [place] tel:[phone] MEDICAL WC UTI (chief complaint)Tel emedicine (chief complaint) UTI (urinary tract infection), uncomplicated 0 Hathuc Chinhnam. [address] [place], [address], [place]. tel:[phone] OFFICE/OUTPA TIENT VISIT, [facility], [address], [place], [id number], [place] tel:[phone] MEDICAL WC TELEMED (chief complaint) Urinary frequency 0 Ynes Mak. [address] [place], [address], [place]. tel:[phone] OFFICE/OUTPA TIENT VISIT, [facility], [address], [place], [id number], [place] tel:[phone] MEDICAL WC Telemedicine visit (chief complaint)Anx iety (chief complaint) Anxiety 0 Hathuc Chinhnam. [address] [place], [address], [place]. tel:[phone] [facility], [address], [place], [id number], [place] tel:[phone] MENTAL HEALTH WC Encntr for obs for oth suspected diseases and cond ruled out 0 No Information OFFICE/OUTPA TIENT VISIT, [facility], [address], [place], [id number], [place] tel:[phone] MEDICAL WC Telemedicine visit (chief complaint)f/u anxiety meds (chief complaint) AnxietyEducat ed about COVID-19 virus infection 0 Tamara Marlow. [address] [place], [address], . tel:[phone] Consulting Provider: Domingo Roach, [address] [place], [address]. tel:[phone] Family History Family Member Type Diagnosis Age At Onset No Information Immunizations Vaccine Date Status Comments Flu Quadrivalent refused Source: New Immunization Record Tdap refused Source: New Imm unization Record Td (adult), adsorbed refused Source: New Immunization Record Flu Quadrivalent pending Source: New Immunization Record Payers Payer name Insurance type Covered constitution party ID Herveeric stellaroberto(s) [facility] [id number] [employer] [facility] [id number] [facility] [id number] [employer] [facility] [id number] [facility] [id number] [employer] [facility] [id number] Social History Type Description Quantity Date Captured [...] Referred To: Loreta Sandoval MD [address] [place], [id number] Ordered: Referrals: Psychiatry. Loreta Sandoval MD ordered [...] discussed the following handouts: Mercury in Fish ([place] Dept of Health), Sudden Infant Syndrome ([place] Dept). STT/NUTR - H/O: Get The Folic Acid You Need, Don't Get Sick From The Foods You Eat. H/O: Expecting? Protect Yourself and Your Baby from Whooping Cough and Flu, Zika Virus Disease ([place] Dept of Public Health), H/O: Signs and Symptoms of Heart Disease. Patient, through her interpretation, stated no nee to review handouts since she had just received them last year. Advised patient that due to her history of high risk her OB provider might referrer to a high risk medical office and or a high school teacher provider. Both patient and her understood. PATIENT [...] Lexapro 5mg qdaily. f/u in 6 weeks. Comments: 37 y/o F with pmh completely [...] qdaily. f/u in 6 weeks. f/u anxiety psyc follow up Comments: 37 y/o F with PMH deafness bilateral, social anxiety, generalized anxiety. Pt. states she has been taking proranolol 10mg qdaily with moderate effect for social anxiety. Pt. states has been taking xanax prn for panic attack. Presents today for psych medication review and optimization. 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 Patient states that she is still having [...] GI discomfort pt is deaf and [place]. communicates via writing.c/o LUQ abdominal pain worse [...] Stomach Pain pt is deaf and [place], communicates via writing. Poor grammar on writing. [...] ; baby had complications [facility] . here for follow up [...] gave the following handouts: Mercury in Fish ([place] Dept of Health), Sudden Syndrome ( Dept). Reviewed STT/NUTR - discussed and gave H/O: Get The Folic Acid You Need, Don't Get Sick From The Foods You Eat. (Dept of Health), Expecting? Protect Yourself and Your Baby from Whooping Cough and Flu, Zika Virus Disease ([place] Dept of Public Health), Reviewed STT/HE-discussed and [...] discuss other alternatives for Anxiety. Medication: -Propranolol Preventive exam Currently pregna nt: no. The client states she uses Condoms, male for control. She has not been exposed to passive smoke. She has not been exposed to passive vaping. She does not drink alcohol. F/u asthma 36-year-old deisi aguirre with pertinent [...] hemoglobin of 8.7. Results scanned into chart. Comments: 36y/o female with Hx of asthma [...] history of deafness, he was seen a staff technologist over the phone, encounter today was as [...] of hearing, call was made using an barnworker groom the historian is the , patient has [...] VISIT OBTAINED.REPORTS SHE LOST THE NUMBER TO COAT MAKER MD AND ASKING FOR NUMBER TO CALL [...] CONCENRED. NO PELVIC PAIN. FOLLOWED UP WITH COAT MAKER MD AND SHE IS TO HAVE US [...] by family issues. 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 DECLINED THE USE OF BC METHODS TO CONTROL BLEEDING DUE TO H/O ANXIETY. THEREFORE, DUE TO OUR PRACTICE LMITATION WE HAVE OFFERED REFERRAL TO COAT MAKER MD FOR FURTHER EVALUATION AND SHE HAS AGREED. ASKING FOR A NONHORMONAL METHOD TO SEE IF BLEEDING CAN BE DECREASED. Anxiety The patient pres ents with anxious/fearful thoughts and excessive worry. The Anxiety is aggravated by lack of sleep and Pandemic. Additional information: Spoke with the barnworker groom id # [id number] via sign language states [...] HAS APPT FOR PELVIC US 11-11 AT [facility]. ADVICED TO KEEP APPT WITH WILL [...] consent to telemedicine encounter TELEMED TRANSLATION THRO [facility] HEARING AID OPERATORCONSENT OBTAINEDREPORTS HAVNG VAGINAL IRRITATION [...] has total hearing loss, encounter using a staff technologist via telemedicine. Telemedicine visit Telephone Vis itConsent obtained-VerballyIdentity Verified f/u anxiety meds (comments) 34 y /o female pmh complete hearing loss. Planer Chain Offbearer used for telemed call. Pt. requests refill [...] without esophagitis See #2 Related to Insom ludy, unspecified type Will not refill Alpr azolamProvided [...] to be prepared for next visit from strategic procurement manager Related to Deaf, bilateral . -Avoid irritative [...] to reassess symptoms, instructed patient to bring staff technologist Related to Severe persistent asthma without complication [...] patient to coordinate with insurance to provide manager sign for next appointment Related to Deaf-mutism -prescribed venlafax ine 37.5 mg daily-We will reassess medication at next vyvurrogsgm-[id number]-cc in 1 month Related to Anxiety Lifestyle education regarding di et Related to Body mass index [BMI] 23.0-23.9, adult referral for GIPt to complete previously ordered h.pylori test Related to Epigastric pain Discussed diet and exercise RD R elated to Prediabetes Ferrous sulfated yeyo ry other day increase water and fiber intake to avoid constipationrecheck in 3 mo RTC sooner if experiencing symptoms Related to Iron deficiency anemia, unspecified iron deficiency anemia type Vitamin D ass directed Related t o Vitamin D deficiency See #3 Related to [place] ruddy liver enzymes See #3 Related to Mixed hyperlipidemia - Office will try to coordinate with patient's insurance to request manager sign for next visit in 2 weeks Related [...] speaking w therapist, because some times the staff technologist has a had time translating per pt [...] improve treatment for anxiety Patient needs new [id number] propranolol 10 mg BID Related to Anxiety 1. NAME AND NUMBER T O COAT MAKER MD RFERRED PORVIDED AND PATIENT IS TO CALL REGARDING ANY FOLLOW UP EXAM NEEDED 2. TO CALL US IF ANY QUESTIONS ARISE OR RTC PRN Related to Breakthrough bleeding 1. RESOLVED 2. REASS URANCE 3. FOLLOW UP WITH COAT MAKER MD REFERRED. 4. PRECAUTIONS DISCUSSED Related to Breakthrough bleeding Due to the pandemic- people are having worsening sx of Anxiety.Unable to run CURES report, nothing is showing up on file.Also had KIRSTIN RUIZ help me and the pharmacist from [facility] but nothing on file.Called in Alprazolam 0.5mg once daily as needed for Anxiety #30, no refills Related to Anxiety 1. IMPROVED WITH TRA NEXAMIC ACID 2. REFILL ORDERED REQUESTED 3. TO FOLLOW UP WITH COAT MAKER MD REFERRED. Related to Excessive and frequent menstruation with regular cycle Lifestyle education regarding di et Related to Body mass index [BMI] 25.0-25.9, adult 1.USE TRANEXAMIC ACI D DIRECTED 2. REFERRAL TO COAT MAKER MD ORDERED 3. ED PRECAUTIONS DISCUSSED. Related [...] Mental Status Date Cognitive Assessment Orientation - Sibley ed to time, place, person, situation. Patient Care Teams Name Effective Dates (start - stop) Status Members No Information
--- OUTSIDE RECORDS SUMMARY | 2024-04-02 00:37 | XMS_ITS | Encounter Summary ---
Author Organization [place] Address [address] [place] [address] Care Team Providers Care Kitchen Food Assembler Name Role Phone [facility], [facility] P annamarie Unavailable Jd Perez PA-C Unavailable [phone] Reason for Visit * Reason Comments Medication Refill Encounter Details Date Type Department Care Team (Late st Contact Info) Description 12/24/2019 Refill [facility] [id number] [place] [phone] Jd Perez PA-C [id number] [place], [place] [phone] Medication Refill Social History Tobacco Use Types [...] on file 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 CARIN Arreaga R PLANT MECHANIC * Telephone Encounter - Jd Perez PA-C - 12/25/2019 11:23 AM POWER PLANT MECHANIC Needs to be seen. Jd Perez PA-C R PLANT MECHANIC * Telephone Encounter - Vikki Bettencourt, RN - 12/25/2019 9:56 AM CST Routing refill request to provider for review/approval because: Patient needs to be seen because it has been more than 1 year since last office visit. No appointment pending at this time. Routing to provider to advise. Shelly CHAVEZN, RN R PLANT MECHANIC documented in this encounter Plan of Treatment Not on file documented as of this encounter Visit Diagnoses Diagnosis MONCHO (generalized anxiety disorder) Generalized anxiety disorder documented in this encounter Additional Health Concerns Assessment Noted Time PHQ-9 Depression Total Score: 7 04/19/19 19 3:10 PM POWER PLANT MECHANIC documented as of this encounter Care Teams Kitchen Food Assembler Relationship Specialty Start Date End Date Clinic, [facility] PCP - General Clinic 04/18/18 09/27/23 Jd Perez PA-C [id number] [place] [address] Assigned PCP 08/19/18 08/13/21 documented as of this encounter
--- OUTSIDE RECORDS SUMMARY | 2024-04-02 00:37 | XMS_ITS | Clinical Summary ---
Author Organization [facility] Address [address] [place] [address] Care Team Providers Care Care Manager Name Role Phone Unavailable Primary Care Provider Unavailabl e Source Comments Patient records contain information from all sites at [facility]. For routine questions regarding patient records, call [phone] during business hours, M-F 8:00 AM - 5:00 PM Central Time. 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 [place] [address]
--- NOTE | 2024-04-02 00:57 | ED_ITS ---
HPI - General Adult General Chief complaint: Anxiety Stated complaint: Anxiety and High Blood pressure Time Seen by Provider: 04/02/24 00:01 History of Present Illness HPI narrative: Patient presents to the emergency department with fear that her blood pressure could be elevated, requesting a prescription for losartan. She did not check her blood pressure prior to coming to an emergency department but reports that she knows that her blood pressure goes high when she eats lots of sugar or salt and did so and felt a little off. She is not having chest pain, neurological changes or stroke-like symptoms. She has had this exact same complaint in the emergency department multiple times before. Prior notes reviewed as well. She does have a history of significant anxiety disorder and is not on long-term daily therapy for this. Last our primary care provider within the last 3 weeks. She-Lee told me that she has a prescription for losartan and would like a refill, and then as I ask more questions to clarify, she admits that she is requesting a new prescription for this. When asked specifically what her blood pressure was at home that caused her to be so concern to come to the emergency department in the middle of the night with small children in the bitter cold, she tells me that she did not check her blood pressure, just felt as though it could be high. This is similar to prior complaints as well. While here, she also requests that her ears be checked as she has some watery discharge on occasion from her right ear canal. She also request blood work and a urinalysis. No trauma or injury, no fever, no persistent vomiting. Weights are stable from prior visits. Prior notes reviewed, nonsmoker. ROS is notable for the HEENT, urinary, cardiovascular, generalized symptoms as above. Attempt at an ROS was nearly scott positive. Related Data Home Medications ?Medication ?Instructions ?Recorded ?Confirmed albuterol sulfate 90 mcg/actuation 2 puff inhalation Q4-6H PRN muscle 07/11/23 08/18/23 aerosol inhaler spasm ascorbic acid (vitamin C) 250 mg 250 mg PO Q1D 07/11/23 08/18/23 tablet famotidine 40 mg tablet 40 mg PO DAILY 07/11/23 04/01/24 ferrous sulfate 325 mg (65 mg 325 mg PO DAILY 08/13/23 08/18/23 iron) tablet propranolol 10 mg tablet 10 mg PO DIRECTED 08/13/23 04/01/24 Previous Rx's ?Medication ?Instructions ?Recorded propranolol 10 mg tablet 10 mg PO TID PRN panic attack(s) 08/18/23 #30 tabs sucralfate 1 gram tablet (Carafate) 1 g PO QID #28 tabs 08/31/23 Allergies Allergy/AdvReac Type Severity Reaction Status Date / Time morphine AdvReac Mild Verified 08/18/23 01:00 peppermint AdvReac Mild Verified 08/18/23 01:00 aspirin AdvReac Verified 08/18/23 01:00 fluoxetine AdvReac Verified 08/18/23 01:00 ibuprofen AdvReac Verified 08/18/23 01:00 [facility] Medical History Anxiety ?F41.9 - Anxiety disorder, unspecified (ICD-10) Social History Smoking Status: Never smoker Second hand tobacco smoke exposure: No How often do you have a drink containing alcohol: never AUDIT-C Alcohol total score: 0 Non-prescribed substance use: denies use Exam Const: Vital Signs, click to edit/add: Vital Signs - 24 hr 04/01/24 23:21 Temperature 97.8 F Pulse Rate [Pulse Oximeter] 57 L Respiratory Rate 16 Blood Pressure [Ri ght Upper Arm] 136/79 Pulse Oximetry 97 Oxygen Delivery Me thod Room Air Documenting provider has reviewed patient's vital signs: yes Common normals: alert General appearance: well kempt Other: Anxious, difficult to redirect. Insight seems limited. Well-nourished and well-hydrated with no signs of trauma. HENMT: Common normals: normocephalic, TM's normal bilaterally, moist oral mucous membranes and oropharynx normal Head and scalp: normocephalic Tympanic membrane: TM's normal bilaterally Other: [place] clean ear canals with mild dry skin on the right. No signs of redness, swelling or drainage. Eye: Common normals: conjunctivae normal General eye: normal appearance of both eyes Conjunctiva: conjunctiva(e) normal Neck & C-Spine: Common normals: no lymphadenopathy General: normal visual inspection Resp: Common normals: normal respiratory effort, no use of accessory muscles and clear to auscultation bilaterally Effort & inspection: able to speak in complete sentences Auscultation: clear to auscultation bilaterally Cardio: Common normals: regular rate, regular rhythm, S1 normal heart sound, S2 normal heart sound and no murmurs Rate: regular rate Rhythm: regular rhythm Heart sounds: S1 normal and S2 normal Extremity: Common normals: normal to inspection Neuro: Sensorium/orientation: alert Speech: speech normal Motor exam: strength 5/5 throughout and no movement abnormalities noted Psych: Common normals: speech normal Appearance: well kempt Activity/motor behavior: appropriate eye contact Speech: normal speech Attention/concentration: attention grossly intact Memory/cognition: memory grossly intact Insight: limited Judgement: limited Skin: Common normals: no rashes or lesions noted General skin exam: no rashes or lesions noted Course Course ED Course: 39-year-old female presenting with anxiety and perceived high blood pressure. Blood pressure reassuring in triage. No focal neurological changes or stroke- like symptoms. Do not recommend treatment. Counseled patient extensively that she should not be placed on antihypertensives due to significant risk of harm to her kidneys and other body systems. Written instructions provided detail in this. Counseled that she may apply a small amount of Vaseline on a Q-tip to her ear canal as needed but she should avoid aggressive cleaning as the dry skin and cold air without lack of protection from ear wax is likely the reason for her tenderness. Counseled that we will not be running blood work or other laboratory test today based on her symptoms and she can follow up with her primary care provider to discuss long-term management. We reviewed appropriate use of the emergency department. I would like for her to invest in a blood pressure cuff to check her blood pressure prior to coming to emergency de partment for this in the future and I have reviewed appropriate levels that would warrant evaluation in an emergency room. Written instructions provided. Vital Signs Vital signs: Initial Vital Signs Temperature 97.8 F 04/01/24 23:21 Temperature Source Temporal Artery Scan 04/01/24 23:21 Pulse Rate 57 L 04/01/24 23:21 Respiratory Rate 16 04/01/24 23:21 Blood Pressure 136/79 04/01/24 23:21 Blood Pressure Mean 98 04/01/24 23:21 Blood Pressure Position Sitting 04/01/24 23:21 Pulse Oximetry 97 04/01/24 23:21 Oxygen Delivery Method Room Air 04/01/24 23:21 Vital Signs Temperature 97.8 F 04/01/24 23:21 Pulse Rate 57 L 04/01/24 23:21 Respiratory Rate 16 04/01/24 23:21 Blood Pressure 136/79 04/01/24 23:21 Pulse Oximetry 97 04/01/24 23:21 Oxygen Delivery Method Room Air 04/01/24 23:21 Temperature 97.8 F 04/01/24 23:21 Pulse Rate 57 L 04/01/24 23:21 Respiratory Rate 16 04/01/24 23:21 Blood Pressure 136/79 04/01/24 23:21 Pulse Oximetry 97 04/01/24 23:21 Oxygen Delivery Method Room Air 04/01/24 23:21 Discharge Plan Discharge Clinical Impression: No problem, feared complaint unfounded Patient Disposition: Home w/ Parent or Adult Condition: Stable Instructions: Anxiety (ED) Additional Instructions: As we discussed, your main complaint for coming here is that your concerned that your blood pressure was elevated. In the future, please invest in a blood pressure monitoring device that you can check your blood pressure before coming to emergency department. You do not need to be evaluated in an emergency department unless her blood pressure is consistently over 180 and you are having acute neurological changes. Use of the emergency department for medical conditions is certainly different than the need to follow-up with a primary care physician. I do recommend that you make an appointment to follow-up with your primary care physician if you have continued concerns regarding your elevated blood pressure. Requesting and unnecessary blood pressure medication in the emergency department can be very dangerous for your health. This can cause long-term damage to your kidneys as well as cause dizziness and heart failure if you are put on this medication unnecessarily. We will not be testing blood work or other labs today since your blood pressure is in the appropriate range. It is not uncommon that some people have flushing type side effects from high sugar and highly processed foods. Consider if eating these in the future is right for you. It is not a medical emergency to have these side effects. There is some dry skin in your ear but no signs of infection. No treatment is needed for this. If it is painful and bothersome, apply a very small amount of Vaseline on a Q-tip once daily to the ear canal. This may cause discoloring or damage to any electronic devices that you wear in your ear so please do so caut iously. Avoid aggressively cleaning her ears with Q-tips, as removal of the wax will actually cause more irritation to the delicate skin of the ear canal. Continue your current treatment plan for anxiety and remembered that your primary care provider is the best person to make long-term decisions regarding your health. Prescriptions for medications to treat otherwise will typically not be given in an emergency room setting. Activity Level: No Restrictions Discharge Diet: Regular Prescriptions: No Action famotidine 40 mg tablet 40 mg PO DAILY ascorbic acid (vitamin C) 250 mg tablet 250 mg PO Q1D albuterol sulfate 90 mcg/actuation HFA aerosol inhaler 2 puff inhalation Q4-6H PRN (Reason: muscle spasm) propranolol 10 mg tablet 10 mg PO DIRECTED ferrous sulfate 325 mg (65 mg iron) tablet 325 mg PO DAILY propranolol 10 mg tablet 10 mg PO TID PRN (Reason: panic attack(s)) Qty: 30 0RF sucralfate [Carafate] 1 gram tablet 1 g PO QID Qty: 28 0RF Follow Up/Referrals: Yoana Hdez, ANTICHECKING IRON WORKER [Primary Care Provider] - Stand Alone Forms: [employer] Info Instructions
== END 2024-04-02 00:58 | disposition home or self-care (01) ==
LOC: ED 04-02 00:35
PROVIDERS: Emergency Provider Family Medicine; PCP Family Medicine
DX: Z71.1 Person with feared health complaint in whom no diagnosis is made (principal)
CPT/HCPCS: 99282; 99283

== ENCOUNTER 2024-09-30 21:29 | Emergency (ER) | payer BC, SELFPAY ==
--- OUTSIDE RECORDS SUMMARY | 2024-09-30 21:31 | XMS_ITS | Clinical Summary ---
Author Organization [facility] Address [address] [place] [address] Care Team Providers Care Metal Grader Name Role Phone Unavailable Primary Care Provider Unavailabl e Source Comments Patient records contain information from all sites at [facility]. For routine questions regarding patient records, call [phone] during business hours, M-F 8:00 AM - 5:00 PM Central Time. 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 Gender Identity Not on file Sexual Orientation Not on file Plan of Treatment Health Maintenance Due Date Last Done Comments Cervical/Vaginal Cancer Screening 1987 HIV Screening 1987 Hepatitis C Screening 1987 Lipid (Cholesterol) Screening 1987 Hepatitis B Vaccines (1 of 3 - 19+ 3-dose series) 2006 HPV Vaccines (1 - 3-dose SCD M series) 2014 COVID-19 Vaccine ( - 2023-2 5 season) 2023 Depression Screening (Annual PHQ-2) 02/14/2024 Influenza Vaccine (#1) 2024 03/26/2019 DTaP,Tdap,and Td Vaccines (2 - Td or Tdap) 05/17/2033 05/18/2023 Hepatitis B Screening Discontinued 05/18/2023 IPV Vaccines Aged Out No longer eligi ble based on patient's age to complete this topic Pneumococcal vaccine (0-49 years) Aged Out No longer eligible based on patient's age to complete this topic Insurance [facility]
--- OUTSIDE RECORDS SUMMARY | 2024-09-30 21:31 | XMS_ITS | Patient Health Record ---
Author Organization [facility] Address [address] [address] Care Team Providers Care Feller Buncher Operator Name Role Phone [facility] Primary Care [facility] er Unavailable DR. Linda Fountain Unavailable [phone] Obdulio Quick Unavailable Unavailable Allergies Allergen (clinical drug ingredient) Drug/Non Drug Allergy documented on EMR Reaction Allergy Type Onset Date Status ibuprofen Ibuprofen shortness of breath Drug Allergy Active Reason For Referral No Information Medications Medication SIG (Take, Route, Frequency, Duration) Notes Start Date End Date Status Propranolol HCl 10 MG Tablet 1 tablet Orally Twice a day Active Social History Tobacco Use: Social History Observation Description Date Details (start date - stop date) Never Smoker NA - NA Social History Social History Social Info Question Answer Notes Tobacco Use: Are you a: never smoker Drug/Alcohol: Social Info Question Answer Notes Alcohol: Did you have a drink containing alcohol in the past year? 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 TRAC HOMATIS AND N. GONORRHOEAE 09/30/2021 COMPREHENSIVE METABOLIC PANEL 06/17/2020 TISSUE PATHOLOGY 06/03/2020 Pelvic Ultrasound 06/01/2020 Pelvic Ultrasound 06/01/2020 PAP 06/01/2020 PCP labs 06/30/2020 OCP Form 09/30/2021 Insurance Providers Payer Name Payer Address Payer Phone Subscriber Number Group Number Insured Name Patient Relationship to Insured Coverage Start Date Coverage End Date [facility] [address] [place] [phone] [id number] Jerica Unger Self - patient is the insured Medical (General) History Medical History History ICD Code Essential (primary) hypertension I10 Anxiety disorder, unspecified F41.9 Surgical History Surgery Date(Month/Year) c-sec 2017 Hospitalization History Reason Date(Month/Year) childbirth x1 2018 UTI, kidney infection 06/2020
--- OUTSIDE RECORDS SUMMARY | 2024-09-30 21:31 | XMS_ITS | Patient Health Record ---
Author Organization [facility] Address [address] [place] [address] Support Name Relationship Address Phone MARICEL SHAVER Guarantor Unknown [phone] Allergies Allergen (clinical drug ingredient) Drug/Non Drug Allergy documented on EMR Reaction Allergy Type Onset Date Status Aleve Unknown Drug Allergy Active ibuprofen Ibuprofen Unknown Drug Allergy Active Reason For Referral No Information Medications Medication SIG (Take, Route, Fr equency, Duration) Notes Start Date End Date Status ALPRAZolam 0.5 MG 1 tablet Orally Twice a day Active Tranexamic Acid 650 MG as directed Orally Active Propranolol HCl 10 MG 1 tablet Orally Once a day Active Problems Problem Type SNOMED Code ICD Code Onset Dates Problem Status W/U Status Risk Notes Problem Vaginal bleeding (129780157) Vaginal bleeding (N93.9) Active confirmed Plan Of Treatment Pending Test Test Name Order Date *Urinalysis 02/27/2020 Insurance Providers Payer Name Payer Address Payer Phone Subscriber Number Group Number Insured Name Patient Relationship to Insured Coverage Start Date Coverage End Date [facility] [address] [place] [address] [id number] MARICEL SHAVER Self - patient is the insured Medical (General) History Medical History History ICD Code ANXIETY
--- OUTSIDE RECORDS SUMMARY | 2024-09-30 21:31 | XMS_ITS | Clinical Summary ---
Author Organization [facility] [employer] [facility] Address [address] [place] [address] Care Team Providers Care Special Services Coordinator Name Role Phone Rachel Calderon MD Unavailable [phone] Мария Higginbotham MD Unavailable [phone] Yoana Hdez NP Primary Care Provider [phone] Allergies Active Allergy Reactions Criticality Noted Date Comments Aspirin Hives,Dyspnea,Itchin g High 05/10/2016 Fluoxetine Dizziness 11/27/2017 Ibuprofen Dizziness,Dyspnea,It sherlyn,Rash High 04/30/2014 Other reaction(s): Dizziness Morphine Other - Describe In Comment Field 04/27/2016 Peanut *Unknown 07/04/2024 Peppermint Flavor Other - Describe In Comment Field Medium 03/31/2017 Heartburn Sulfa (Sulfonamide Antibiotics) Rash 12/18/2023 Diazepam Dizziness Low 08/08/2023 Medications albuterol HFA (PRO-AIR; VENTOLIN; PROVENTIL) 90 mcg/actuation inhalerIndicatio ns:Mild persistent asthma with exacerbation (HC) Inhale 1 Puff by mouth every 4 hours while awake. 18 Each 2 10/23/19 24 Active Blood Pressure Monitor KitIndications:E ssential hypertension Frequency of testin a day to monitor blood pressure diagnosis hypertension essential 1 Each 04/12/19 25 Active famotidine 20 mg tabletIndication s:Chronic GERD Take 1 Tablet (20 mg) by mouth two times daily. as needed 60 Tablet 05/02/19 25 Active sodium chloride (Saline NasaL) 0.65 % nasal solutionIndicati ons:Smell or taste sensation disturbance Inhale 1 [place] into affected nostril(s) every hour if needed (nasal hydration). 45 mL 11 05/02/19 25 Active Additional Information Patient not taking.Reported on 09/24/2024 propranoloL 10 mg tabletIndication s:Generalized anxiety disorder,Trauma and stressor-related disorder,Claustr ophobia Take 1 tablet (10 mg) 3 times daily. May also take 2 tablets if needed once daily for high anxiety such as flying or the dentist. Wait 1 hour between doses 360 Tablet 1 09/19/19 25 Active Menthol 2.5 % topical gelIndications:M uscle tightness Apply topically to affected area(s) 3 times daily if needed (pain). 57 g 09/25/19 25 Active methyl salicylate/menth ol (BENGAY TOP) Apply topically to affected area(s). 025 Discontin ued(*Med complete/ Regimen complete/ Level of care change) propranoloL 10 mg tabletIndication s:Generalized anxiety disorder,Trauma and stressor-related disorder,Claustr ophobia Take 1 tablet (10 mg) 3 times daily. May also take 2 tablets if needed once daily for high anxiety such as flying or the dentist. Wait 1 hour between doses 360 Tablet 3 05/14/19 25 025 Discontin ued(*Avai lability/ Formulary change/Co st of medicatio n) ferrous sulfate 325 mg (65 mg iron) tablet Take 325 mg by mouth two times daily with meals. 08/13/19 24 025 Discontin ued(*Med complete/ Regimen complete/ Level of care change) Active Problems Problem Noted Date Diagnosed Date Claustrophobia 03/11/2024 Major depressive disorder, recurrent, moderate 0 03/11/2024 Testosterone insufficiency 11/29/2023 ASCUS of cervix with negative high risk HPV 02/2023 Overview (09/14/2023): 08/2023 ASCUS/HPV negative Plan: HPV based testing in 3 years CRP elevated 08/25/2023 Mild persistent asthma with exacerbation 024 Anemia 06/30/2023 Generalized anxiety disorder 05/18/2023 Trauma and stressor-related disorder 05/18/2023 Deafness 02/20/2023 Resolved Problems Problem Noted Date Diagnosed Date Resolved Date Uterine scar from previous c esarean delivery, antepartum complication 06/16/2023 08/23/2023 Overview (06/16/2023): Prior Classical C/S (2017) History of classical section 04/17/2023 08/06/2024 Overview (06/16/2023): Normal appearing POSTERIOR placenta in current (MPP Level II 03/20/23) Low weight gain during pregn wanda in third trimester 03/20/2023 08/23/2023 History of delivery, currently in third trimester 02/20/2023 08/23/2023 History of loss in prior , currently in third trimester 02/20/2023 Multigravida of advanced mat ernal age in third trimester 02/20/2023 08/23/2023 MPP, Supervision of high-risk 02/14/2023 07/13/2023 Overview (07/05/2023): Jerica Graffnice Ute : 1985 Jerica HUGGINS OB Patient MPP CONSULT ON 02/20/23 Support person name: John Spout Tender: Yes - ASL ULTRASOUND TYPE: REASON FOR VISIT: Hx classical C/S, hearing impaired, anxiety, PTSD NEXT VISIT ALERTS: Did she bring her blood sugar log? Last visit before delivery! LB scheduled two iron infusions at [facility] before delivery date. The supervising provider at the infusion center is Leyda Huynh APRN, CNS. She will call back when this pt [...] - Scheduled delivery: C 07/13/23 0930 @ [facility] PRIMARY DIAGNOSIS: 38 y.o. . Estimated Date [...] PATIENT CARE TEAM Мария Higginbotham MD Psychiatry 04/2023 [place] 05/2023 GENETICS: none SARAH signed for [facility]: MATERNAL CARE COORDINATION: CARE COORDINATION: TOOL MAKER: ROUTINE OB: Flu vaccine: declined COVID-19 vaccine: [...] Date: PPTL: No CHECKLIST FOR SCHEDULING PROCEDURES: [facility]: Call (sales team recruiter) for all scheduling Procedure: C/ Hospital: [facility] Unit: L&D Date & Time of procedure: 07/13/23 0980 Pertinent information: Hx of 25w5d Classical C/S; PROM, cord prolapse, hx of 22 wk PTD, NND, needs ASL interp Gestational age on procedure date? 36w1d MD doing procedure: Jos Date scheduled: 05/18/2023 when patient was 28w1d. Scheduling MD & RN: Anuj/MARLON Notifications: Hospitalist Delivery-OBH document preparation specialist notified through EQAL inbox? Yes [facility] MD document preparation specialist notified via EQAL inbox? Yes Primary MD notified via EQAL inbox? Not Applicable Primary MD clinic called if not [place]ian? Not Applicable On [facility] calendar? Yes Surgical Prior Authorization completed? Yes Care Coordination notified? Not Applicable H&P/PPTL: PPTL permit signed? No H&P and Plan in chart? No [facility] appointment made for H&P with TRANSLITERATOR within 30 days of procedure? No Date: Hibiclens Education given? No Hibiclens supplied to patient? No Patient notification: Patient notified of procedure date? Written admission instructions given to patient via AVS? PERTINENT MEDS: Progesterone - declines Cymbalta - started 05/17 propranolol 10 mg daily as needed for anxiety PROCEDURES: PLAN OF CARE: 06/[address] Plan: OB Care - OB checks every 2 weeks from 28-34 weeks, then weekly until delivery - labor and preeclampsia precautions reviewed - Call if regular contractions, leaking of fluid, vaginal bleeding, or decreased movement - Okay to continue regular physical activity Ultrasound/Testing - L2 done with [facility] 02/20/23 - Growth ultrasound done 05/17. No further indicated. - testing not indicated at this time Labs - Initial labs GCT & treponema collected 05/18/23 - Failed 1hr GCT, will try to scrap picker supplies today to check blood sugars [...] of this appointment date/time) - Follows with [facility] for therapy - Start Duloxetine 20mg daily (declined to start until ) Consults - Weight management referral n/a - Sleep medicine referral n/a Delivery - Patient should expect repeat section at 36-37 weeks d/t prior classical hysterotomy - Repeat section scheduled 07/13/[address] Uma Arguello, OB - Tubal sterilization declined - Plans breast and bottle feeding - Start duloxetine 20mg daily (does not want to start prenatally) Encounters Date Type Department Care Team Description 09/24/2024 3:00 PM CDT Office Visit [address] [phone] Chaka Keys NP Ear Problem (Patient states for the past 4 months she feels ear wax stuck in both of her ears. No pain reported. Patient states 3 months ago she noticed drainage coming out of both ears.) 09/24/2024 Travel 09/16/2024 Refill [facility] [address] [place] [address] Peyman De La Rosa MD Refill Request (propranoloL) 08/26/2024 1:20 PM CDT Office Visit [facility] [address] [place] [address] Jacek Prince MD Allergies (Consult-foot sensitivity headache, GI food sensitivity, referred by Dr De La Rosa) 08/26/2024 Travel 08/06/[address] [phone] Yoana Hdez NP Referral (Audiological Evaluation) 08/05/2024 7:05 PM CDT Office Visit [facility] [address] [place] [phone] Jeannie Mchugh PA Throat Problem (sore throat and painful swallowing. onset 41 minutes ago while eating. ) 08/05/2024 2:30 PM CDT Office Visit [address] [phone] Eileen Colbert AuD Hearing Problem (Hearing test deferred) 08/05/2024 Travel 07/04/2024 11:00 AM CDT Telemedicine [facility] [address] [place] [address] Peyman De La Rosa MD Medication Management 07/02/2024 2:00 PM CDT Office Visit [facility] [address] [place] [address] Peyman De La Rosa MD Error-please disregard (Has very bad GASTON, Right shoulder pain/) 07/02/2024 Travel from Last 3 Months Immunizations Immunization Administration Dates Next Due Influenza, IIV4 (=>6mos) MDV 03/26/2019 Tdap 05/18/2023 Family History Medical History Relation Name Comments Drug Abuse Father Psychiatric illness Father Suicidality Father Relation Name Status Comments Father Social History Tobacco Use Types Packs/Day Years Used Date Smoking Tobacco: Never Passive Smoke Exposure: Never Smokeless Tobacco: Never Tobacco Cessation:Counseling Given: Yes Alcohol Use Standard Drinks/Week Comments Not Currently 0 (1 standard drink = 0.6 oz pure alcohol) Most she ever drank at a time was one drink, every few years PHQ-2 Answer Date Recorded PHQ-2 TOTAL SCORE 1 05/13/2024 Social Connections Answer Date Recorded Do you [...] Complications:Vaginal bleedi ng in , second trimester (HC) Delivery Location:[facility] Comments:vaginal bleed ing 2021 22w 0d F Vag Decea sed Delivery Location:[facility] 2023 36w 1d 0h 01m 0h 01m 2.36 kg (5 lb 3.3 oz) M C-Sec tion Gener al,Sp inal Livin g 5 7 Bb Jerica Olvera on Knoeantonio er, Sulema Jalloh MD Complications:Anesthetic Com plications Delivery Location:Hospital ( UTD 2000 MB L&D TRIAGE) Last Filed Vital Signs Vital Sign Reading Time Taken Comments Blood Pressure 114/82 09/24/2024 3:29 PM CDT Pulse 74 09/24/2024 3:29 PM CDT Temperature 36.2 C (97.1 F) 08/05/2024 7:43 PM CDT Respiratory Rate 16 08/05/2024 7:43 PM CDT Oxygen Saturation 99% 09/24/2024 3:29 PM CDT Inhaled Oxygen Concentration - - Weight 42.4 kg (93 lb 6.4 oz) 09/24/2024 3:29 PM CDT Height 152.4 cm (5') 08/25/2023 4:24 PM CDT Body Mass Index 18.24 08/25/2023 4:24 PM CDT Plan of Treatment Upcoming Encounters Date Type Department Care Team (Late st Contact Info) Description 10/04/2024 10:25 AM CDT Office Visit [address] [phone] Yoana dHez NP [address] [place] [address] 10/10/2024 1:00 PM CDT Office Visit [address] [phone] Brent Santana-Domingo Peters MD [facility] [address] [place] [address] 10/10/2024 4:00 PM CDT Office Visit [address] [phone] Eileen Colbert AuD [address] [place] [address] 10/11/2024 11:00 AM CDT Office Visit [address] [phone] Kim Mehta AuD [address] [place] [address] 10/16/2024 1:00 PM CDT Office Visit [place] [address] [place] [address] Peyman De La Rosa MD [address] [place] [address] Health Maintenance Due Date Last Done Comments Hepatitis C screening for age 18-79 2005 Hepatitis B series for 19+ (1 of 3 - 19+ 3-dose series) 2006 COVID-19 vaccine series (2023- season) 2023 BMI (ht and wt on same day) for age 18+ 05/14/2024 05/15/2023 Influenza Vaccine (#1) 2024 03/26/2019 Depression screening for age 12+ 05/13/2025 05/13/2024, 04/23/2024, 04/22/2024, Additional history exists Pap test for age 21-65 09/05/2026 09/06/2023, 2023 Tetanus booster 05/17/2033 05/18/2023 HIV for age 15-65 Completed 05/18/2023 Pneumococcal series for age 6-49 Aged Out No longer eligible based on patient's age to complete this topic Procedures Procedure Name Priority Date/Time Associated Diagnosis Comments HPV HIGH RISK Routine 09/06/2023 12:44 PM CDT Pap smear for cervical cancer screening ANTI HIV 1/2 Today 05/18/2023 2:10 PM CDT from Last 3 Months or Most Recently Relevant to Health Maintenance Results * HPV HIGH RISK (09/06/2023 12:44 PM CDT) TYPE 16 Negative Negative 09/09/2023 2:15 PM CDT [facility] TYPE 18 Negative Negative 09/09/2023 2:15 PM CDT [facility] OTHER HIGH RISK TYPES Negative Negative 09/09/2023 2:15 PM CDT [facility] Other (Cervical) Non-Blood / Unknown 09/06/2023 12:44 PM CDT 09/07/2023 10:46 AM CDT Narrative [facility] - 09/09/2023 2:15 PM CDT HPV types 16, 18, 31, 33, 35, 39, 45, 51, 52, 56, 58, 59, 66 and 68 DNA were undetectable or below the pre-set threshold. Methodology: Genesis Carrie 4800 HPV Test us Colby Reid MD MICROBIOLOGY Final Re sult Performing Organization Address [facility] Co de Phone Number [facility] [address] [address], [place] * Anti HIV1/2 (05/18/2023 2:10 PM CDT) HIV-1/HIV-2 SCREEN Non-Reacti ve Non-Reacti ve 05/18/2023 10:42 PM CDT [facility] Comment:HIV-1 p24 and HIV-1/ HIV-2 Ab Not Detected. Blood BLOOD SPECIMEN / Unknown Non-Lab Venipuncture / Unknown 05/18/2023 2:10 PM CDT 05/18/2023 2:47 PM CDT us Rebeca Holley NP SEND OUTS Final Res ult Performing Organization Address [facility] Co de Phone Number [facility] [address] [place] [address], from Last 3 Months or Most Recently Relevant to Health Maintenance Insurance [facility] Advance Directives * Full Code (Latest Code Status on File) Date Activated Date Inactivated Comments 07/13/2023 10:39 AM 07/16/2023 3:22 PM Question Answer Comments Code Status Discussion: Reviewed Preferences Care Teams Special Services Coordinator Relationship Specialty Start Date End Date Yoana Hdez NP [address] [place] [address] PCP - General Nurse Practitioner - Family 08/30/23 Rachel Calderon MD [address] [place] [address] Family Practice 02/14/23 Мария Higginbotham MD [address] [place] [address] Psychiatry 06/01/23
--- OUTSIDE RECORDS SUMMARY | 2024-09-30 21:31 | XMS_ITS | Encounter Summary ---
Author Organization [facility] Address [address] [place] [address] Care Team Providers Care Residence Leasing Agent Name Role Phone [facility] Primary Care P annamarie Unavailable Jd Perez PA-C Unavailable Reason for Visit * Reason Comments Medication Refill Encounter Details Date Type Department Care Team (Late st Contact Info) Description 12/24/2019 Refill [facility] [address] [place] [phone] Jd Perez PA-C [address] [place], [place] [id number] Medication Refill Social History Tobacco Use Types [...] on file Legal Sex Female 2:08 PM MUD ANALYSIS WELL LOGGING OPERATOR Gender Identity Not on file Sexual Orientation Not on file documented as of this encounter Miscellaneous Notes * Telephone Encounter - Maylin Benton - 12/25/2019 12:46 PM CST Letter sent appointments needed for refill. CARIN Arreaga ANALYSIS WELL LOGGING OPERATOR * Telephone Encounter - Jd Perez PA-C - 12/25/2019 11:23 AM MUD ANALYSIS WELL LOGGING OPERATOR Needs to be seen. Jd Perez PA-C ANALYSIS WELL LOGGING OPERATOR * Telephone Encounter - Vikki Bettencourt, RN - 12/25/2019 9:56 AM CST Routing refill request to provider for review/approval because: Patient needs to be seen because it has been more than 1 year since last office visit. No appointment pending at this time. Routing to provider to advise. Shelly CHAVEZN, RN ANALYSIS WELL LOGGING OPERATOR documented in this encounter Plan of Treatment Not on file documented as of this encounter Visit Diagnoses Diagnosis MONCHO (generalized anxiety disorder) Generalized anxiety disorder documented in this encounter Additional Health Concerns Assessment Noted Time PHQ-9 Depression Total Score: 7 04/19/19 19 3:10 PM MUD ANALYSIS WELL LOGGING OPERATOR documented as of this encounter Care Teams Residence Leasing Agent Relationship Specialty Start Date End Date Clinic, [facility] PCP - General Clinic 04/18/18 09/27/23 Jd Perez PA-C [address] [place] [address] Assigned PCP 08/19/18 08/13/21 documented as of this encounter
--- OUTSIDE RECORDS SUMMARY | 2024-09-30 21:31 | XMS_ITS | Clinical Summary ---
Author Organization [facility] Address [address] [place] [address] Care Team Providers Care Ruby On Rails Engineer Name Role Phone No Primary/Referring, Phy Primary Care Provider Unavailable Source Comments You are receiving this document as you are listed as the primary care provider,follow-up provider, or the patient has been referred to you for consultation.This is in compliance with the Medicare and[facility] EHR Incentive Program,which states Providers who transition their patient to another setting of careor provider of care or refers their patient to another provider of care shouldprovide summary care record for each transition of care or referral. [employer] Allergies Active Allergy Reactions Criticality Noted Date [...] Comments Blood Pressure 106/69 01/24/2018 4:09 PM AERIAL SURVEY TECHNICIAN Pulse 66 01/24/2018 4:09 PM AERIAL SURVEY TECHNICIAN Temperature 36.9 C (98.5 F) 12/22/2017 6:56 PM AERIAL SURVEY TECHNICIAN Respiratory Rate - - Oxygen Saturation 98% 12/14/2017 6:37 PM CDT Inhaled Oxygen Concentration - - Weight 54.9 kg (121 lb) 01/24/2018 4:09 PM AERIAL SURVEY TECHNICIAN Height - - Body Mass Index - - Plan of Treatment Health Maintenance Due Date Last Done Comments Cervical Cancer Screening Due 1987 Hep C Screening (Preventive Services) 1987 Tuberculosis Screening 1987 HIV Screening (Preventive Services) 2003 Adult Preventive Visit 2005 DTaP/Tdap/Td Vaccine (1 - Tdap) 2006 HepB Vaccine (1) 2006 HPV Vaccine (1 - 3-dose SCDM series) 2014 COVID-19 Vaccine ( - 2023-2 5 season) 2023 Influenza Vaccine (#1) 2024 Zoster/Shingles Vaccine (1 of 2) 2037 HepA Vaccine Aged Out No longer eligi ble based on patient's age to complete this topic Hib Vaccine Aged Out No longer eligi ble based on patient's age to complete this topic IPV (Polio) Vaccine Aged Out No longe r eligible based on patient's age to complete this topic MCV4 Vaccine Aged Out No longer eligi ble based on patient's age to complete this topic Meningococcal B Vaccine Aged Out No l onger eligible based on patient's age to complete this topic Pneumococcal Vaccine Aged Out No long er eligible based on patient's age to complete this topic Care Teams Ruby On Rails Engineer Relationship Specialty Start Date End Date No Primary/Referring, Phy PCP - General 12/13/17
--- OUTSIDE RECORDS SUMMARY | 2024-09-30 21:31 | XMS_ITS | Clinical Summary ---
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
[2024-09-30 21:36] VITALS: BP 119/74; PULSE 62; RESP 18; TEMP 36.7; O2SAT 100; BMI 15.6
--- NOTE | 2024-09-30 22:00 | CRLHL7_ITS ---
For Patients: As a result of the Century Cures Act, medical imaging exams and procedure reports are released immediately into your electronic medical record. You may view this report before your referring provider. If you have questions, please contact your health care provider. INDICATION: Right-sided chest pain, asthma attack. TECHNIQUE: Chest 2 views. COMPARISON: None. FINDINGS: Cardiovascular and mediastinum: Heart size is normal. Unremarkable mediastinum. Lungs and pleural spaces: Slightly low lung volumes. No sign of infiltrate or mass. No sign of pleural effusion. No pneumothorax. Bones and soft tissues: No significant findings. IMPRESSION: No definite acute findings. Dictated by Madhu Garcia MD @ 09/30/2024 11:00:22 PM (Electronically Signed)
[2024-09-30] MEDS: ALBUTEROL SULFATE 2.5 MG/3 ML VIAL.NEB NEB (22:04)
--- NOTE | 2024-09-30 23:05 | ED.GENADULT ---
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 Symptoms are mostly in her right chest. She states her right chest feels tight and states this feels just like previous asthma attacks other than it being more persistent. She states she has used her nebulizer and inhalers at home which have helped for period of time and then symptoms come back she states. Nothing else seems to make that chest tightness better or worse. Describes the pain as a 3/10. Does states she is feeling short of breath. Denies headache, vision changes, weakness, numbness, abdominal pain, nausea, vomiting, diarrhea, constipation. No other concerns noted. Does states she suffers from severe anxiety also. Related Data Home Medications ?Medication ?Instructions ?Recorded ?Confirmed albuterol sulfate 90 mcg/actuation 2 puff inhalation Q4-6H PRN muscle 07/11/23 09/30/24 aerosol inhaler spasm ascorbic acid (vitamin C) 250 mg 250 mg PO Q1D 07/11/23 08/18/23 tablet famotidine 40 mg tablet 40 mg PO DAILY 07/11/23 04/01/24 ferrous sulfate 325 mg (65 mg 325 mg PO DAILY 08/13/23 08/18/23 iron) tablet propranolol 10 mg tablet 10 mg PO DIRECTED 08/13/23 09/30/24 Previous Rx's ?Medication ?Instructions ?Recorded propranolol 10 mg tablet 10 mg PO TID PRN panic attack(s) 08/18/23 #30 tabs sucralfate 1 gram tablet (Carafate) 1 g PO QID #28 tabs 08/31/23 Allergies Allergy/AdvReac Type Severity Reaction Status Date / Time morphine AdvReac Mild Verified 09/30/24 21:44 peppermint AdvReac Mild Verified 09/30/24 21:44 aspirin AdvReac Verified 09/30/24 21:44 fluoxetine AdvReac Verified 09/30/24 21:44 ibuprofen AdvReac Verified 09/30/24 21:44 Review of Systems Status of ROS: Reports: 10 or more systems reviewed and unremarkable except as noted in History and below PFSH [facility] Medical History Anxiety ?F41.9 - Anxiety disorder, unspecified (ICD-10) Social History Smoking Status: Never smoker Second hand tobacco smoke exposure: No How often do you have a drink containing alcohol: never AUDIT-C Alcohol total score: 0 Non-prescribed substance use: denies use Exam Narrative: Exam Narrative: Const: Well-nourished, Well-developed, in no distress Eyes: PERRL, no conjunctival injection, and symmetrical lids HENT: Atraumatic external nose and ears. Moist mucous membranes. Neck: Symmetric, trachea midline, No thyromegaly. CVS: RRR, No murmurs or gallops. Peripheral pulses 2+ and equal in all extremities RESP: Unlabored respiratory effort. Clear to auscultation bilaterally. GI: Nontender/Nondistended, No rebound or guarding. MSK:Extremities w/o deformity, Normal Active ROM Skin: Warm, Dry. No rashes or lesions. Neuro: Normal Muscle tone, No focal neurological deficits. Psych: Awake, Alert, & Oriented x3. Appropriate mood and affect. Const: Vital Signs, click to edit/add: Vital Signs - 24 hr 09/30/24 21:36 Temperature 98.1 F Pulse Rate [Pulse Oximeter] 62 Respiratory Rate 18 Blood Pressure [Ri ght Upper Arm] 119/74 Pulse Oximetry 100 Oxygen Delivery Me thod Room Air Course Vital Signs Vital signs: Initial Vital Signs Temperature 98.1 F 09/30/24 21:36 Temperature Source Temporal Artery Scan 09/30/24 21:36 Pulse Rate 62 09/30/24 21:36 Respiratory Rate 18 09/30/24 21:36 Blood Pressure 119/74 09/30/24 21:36 Blood Pressure Mean 89 09/30/24 21:36 Pulse Oximetry 100 09/30/24 21:36 Oxygen Delivery Method Room Air 09/30/24 21:36 Vital Signs Temperature 98.1 F 09/30/24 21:36 Pulse Rate 62 09/30/24 21:36 Respiratory Rate 18 09/30/24 21:36 Blood Pressure 119/74 09/30/24 21:36 Pulse Oximetry 100 09/30/24 21:36 Oxygen Delivery Method Room Air 09/30/24 21:36 Temperature 98.1 F 09/30/24 21:36 Pulse Rate 62 09/30/24 21:36 Respiratory Rate 18 09/30/24 21:36 Blood Pressure 119/74 09/30/24 21:36 Pulse Oximetry 100 09/30/24 21:36 Oxygen Delivery Method Room Air 09/30/24 21:36 Medications Administered Medications: Discontinued Medications Generic Name Dose Route Start Last Admin Trade Name Ector PRN Reason Stop Dose Admin Albuterol 2.5 mg 09/30/24 21:57 09/30/24 22:04 Albuterol Sulfate 2.5 Mg/3 Ml Vial.Neb NEB 09/30/24 21:58 2.5 mg ONCE ONE Administration Medical Decision Making MDM Narrative Medical decision making narrative: Patient is a 39-year-old female presenting for an asthma exacerbation. Her lungs sound clear on my exam but will give her an albuterol treatment to see if it helps. She was having anxiety with the nebulizer and we that her take her home propanolol. Chest x-ray and an EKG ordered because of the chest pain. They returned showing no acute concerning abnormalities. Patient is feeling much better after the prednisone. I will give her a script for a spacer for her inhaler. She was recently given a new script for the inhaler and has a brand new 1. Will also give her prednisone via [facility] Imaging Data Chest x-ray: Attestation: I have reviewed the pertinent imaging results. Radiologist's impression: No definite acute findings. Dictated by Madhu Garcia MD @ 09/30/2024 11:00:22 PM ECG Data Attestation: I personally reviewed and interpreted this ECG as follows: Prior ECG tracings: available for review Interpretation: Sinus bradycardia with a rate of 56 beats per minute, normal intervals, normal axis, no T-wave abnormalities. Very mild if any ST elevations in lateral leads and this is likely early repolarization. Appears similar previous EKG on file Discharge Plan Discharge Clinical Impression: Asthma with acute exacerbation Qualifiers: Asthma severity: mild Asthma persistence: unspecified Qualified Code(s): J45.901 - Unspecified asthma with (acute) exacerbation Patient Disposition: Home, Self-Care Condition: Improved Instructions: How to Use a Metered-Dose Inhaler and a Spacer (DC) Additional Instructions: You were previously prescribed an inhaler. Use that 2 puffs every 4 hours as needed. Use the spacer that was provided on the paper script. Bring the script to any pharmacy to pick it up. 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 Prescriptions: No Action famotidine 40 mg tablet 40 mg PO DAILY ascorbic acid (vitamin C) 250 mg tablet 250 mg PO Q1D albuterol sulfate 90 mcg/actuation HFA aerosol inhaler 2 puff inhalation Q4-6H PRN (Reason: muscle spasm) propranolol 10 mg tablet 10 mg PO DIRECTED ferrous sulfate 325 mg (65 mg iron) tablet 325 mg PO DAILY propranolol 10 mg tablet 10 mg PO TID PRN (Reason: panic attack(s)) Qty: 30 0RF sucralfate [Carafate] 1 gram tablet 1 g PO QID Qty: 28 0RF Follow Up/Referrals: Yoana Hdez CNP [Primary Care Provider, Family Practice] Stand Alone Forms: [facility] Info Instructions
[2024-09-30 23:36] VITALS: BP 137/94; PULSE 80; RESP 18; O2SAT 99
== END 2024-09-30 23:38 | disposition home or self-care (01) ==
PROVIDERS: Emergency Provider Student in an Organized Health Care Education/Training Program; PCP Family Medicine
DX: J45.901 Unspecified asthma with (acute) exacerbation (principal)
CPT/HCPCS: 71046; 93005; 94640; 99283; 99284